=== PATIENT | female | born 1950 | race Caucasian/White ===

== ENCOUNTER 2018-07-09 12:47 | Emergency (ER) | payer OTHER ==
--- OUTSIDE RECORDS SUMMARY | 2018-07-09 12:49 | XMS REPORT ---
:1950 [facility] [address] [place] [address] Dr. Woodward [address] [place] [id number] Care Team Providers Name Role Phone Unavailable Unavailable Unavailable Problems This patient has no known problems. Allergies, Adverse Reactions, Alerts This patient has no known allergies or adverse reactions. Medications This patient has no known medications.
--- NOTE | 2018-07-09 15:01 | RAD REPORT ---
EXAM DESCRIPTION: RAD - Ankle Right 3 View - 07/09/2018 2:49 pm CLINICAL HISTORY: fall, ankle pain COMPARISON: No comparisons FINDINGS: No fracture or dislocation of the right ankle is seen.
--- NOTE | 2018-07-09 15:01 | RAD REPORT ---
EXAM DESCRIPTION: RAD - Knee Right 3 View - 07/09/2018 2:53 pm CLINICAL HISTORY: fall, knee pain COMPARISON: No comparisons FINDINGS: No fracture or dislocation of the right knee is present. No joint effusion.
--- NOTE | 2018-07-09 15:02 | RAD REPORT ---
EXAM DESCRIPTION: RAD - Knee Left 3 View - 07/09/2018 2:52 pm CLINICAL HISTORY: fall, knee pain COMPARISON: No comparisons FINDINGS: No fracture or dislocation of the left knee is present. No joint effusion seen.
--- NOTE | 2018-07-09 15:20 | EDPHYS ---
Physician Documentation [facility] Name: Christina Raphael Age: 68 yrs Sex: Female : 1950 Arrival Date: 07/09/2018 Time: 12:53 Bed 23 Private MD: Guillermo Ospina R ED Physician Dontae Yin HPI: 07/09 13:46 This 68 yrs old Female presents to ER via Wheelchair with complaints of Ankle jmm Injury, Knee Injury. 13:46 Details of fall: The patient fell from an upright position, while walking. jmm 13:46 Onset: The symptoms/episode began/occurred acutely, just prior to arrival. Associated jmm injuries: The patient sustained right ankle, knees bilaterally. This is a 68 year old female with a history of HLP that presents to the ED with pain to her right and left knee and her right ankle after fall which occurred just prior to arrival. Patient states she miss stepped off a decline and fell on the left knee then the right, rilling her right ankle. Patient denies other injury. . Historical: - Allergies: 13:11 Codeine; aj1 - Home Meds: 13:11 medicine for acid reflux [Active]; aj1 - PMHx: 13:11 High Cholesterol; TIA; GERD; aj1 - Immunization history:: Flu vaccine is not up to date. - Social history:: Smoking status: Patient/guardian denies using tobacco. - Ebola Screening: : Patient denies travel to an Ebola-affected area in the 21 days before illness onset. ROS: 13:46 Constitutional: Negative for fever, chills, and weight loss, Cardiovascular: Negative jmm for chest pain, palpitations, and edema, Respiratory: Negative for shortness of breath, cough, wheezing, and pleuritic chest pain. 13:46 MS/extremity: Positive for injury or acute deformity, abrasion, pain. 13:46 Skin: Positive for abrasion(s). 13:46 All other systems are negative. Exam: 13:46 Head/Face: atraumatic. Eyes: EOMI, no conjunctival erythema appreciated ENT: Moist jmm Mucus Membranes Neck: Trachea midline, Supple Chest/axilla: Normal chest wall appearance and motion. Cardiovascular: Regular rate and rhythm. No edema appreciated Respiratory: Normal respirations, no respiratory distress appreciated Abdomen/GI: Non distended, soft 13:46 Constitutional: The patient appears in no acute distress, alert, awake. 13:46 Musculoskeletal/extremity: FROM appreciated to the right knee, painful flexion noted to the left knee, left knee TTP at the patellar ligament. Swelling noted to the right ankle. no tenderness appreciated at the base of the 5th metatarsal. . 13:46 Skin: abrasion noted to the left knee. 13:46 Neuro: Orientation: is normal, Mentation: is normal, Memory: is normal. 13:46 Psych: Behavior/mood is pleasant, cooperative. Vital Signs: 13:11 BP 121 / 73; Pulse 80; Resp 18; Temp 98.2; Pulse Ox 97% on R/A; Weight 70.76 kg; Height aj1 6 ft. 1 in. (185.42 cm) (R); Pain 5/10; 15:33 BP 117 / 74; Pulse 76; Resp 18; Pulse Ox 98% on R/A; la1 13:11 Body Mass Index 20.58 (70.76 kg, 185.42 cm) aj1 MDM: 13:46 Patient medically screened. [facility] 15:17 Differential diagnosis: abrasion, contusion, fracture. Data reviewed: vital signs, [facility] nurses notes. Data interpreted: Pulse oximetry: on room air is 97 %. Interpretation: normal. Counseling: I had a detailed discussion with the patient and/or guardian regarding: the historical points, exam findings, and any diagnostic results supporting the discharge/admit diagnosis, radiology results, the need for outpatient follow up, to return to the emergency department if symptoms worsen or persist or if there are any questions or concerns that arise at home. 15:18 ED course: Negative xrays, PE is NVI. Patient is advised to follow up with orthopedics [facility] for further evaluation. Patient understood and agrees with the plan of care. . 07/09 13:46 Order name: Knee Left 3 View XRAY; Complete Time: 15:03 [facility] 07/09 13:46 Order name: Knee Right 3 View XRAY; Complete Time: 15:03 [facility] 07/09 13:46 Order name: Ankle Right 3 View XRAY; Complete Time: 15:03 [facility] 07/09 15:03 Order name: Chon wrap-joint; Complete Time: 15:33 [facility] Administered Medications: No medications were administered Disposition: 07/09/18 15:19 Discharged to Home. Impression: Sprain of ankle, Contusion of knee. - Condition is Stable. - Discharge Instructions: Ankle Sprain, Knee Pain. - Medication Reconciliation Form, Thank You Letter, Antibiotic Education, Prescription Opioid Use, Family Work Release form. - Follow up: Vasquez Chacon MD; When: 2 - 3 days; Reason: Recheck today's complaints, Continuance of care, Re-evaluation by your physician. Addendum: 07/11/2018 10:26 Co-signature as Attending Physician, Dontae Yin MD. g s Signatures: Dispatcher [employer] EDMS Darya Tejeda, RN RN aj1 Sanchez Adame PA PA Rashid Lino RN RN la1 Dontae Yin MD MD gs Corrections: (The following items were deleted from the chart) 07/09 15:34 15:19 07/09/2018 15:19 Discharged to Home. Impression: Sprain of ankle; Contusion of la1 knee. Condition is Stable. Forms are Family Work Release, Medication Reconciliation Form, Thank You Letter, Antibiotic Education, Prescription Opioid Use. Follow up: Dr. Vasquez Chacon; When: 2 - 3 days; Reason: Recheck today's complaints, Continuance of care, Re-evaluation by your physician. serge
--- NOTE | 2018-07-09 15:20 | ER ---
Nurse's Notes [facility] Name: Christina Raphael Age: 68 yrs Sex: Female : 1950 Arrival Date: 07/09/2018 Time: 12:53 Bed 23 Private MD: Guillermo Ospina R Diagnosis: Sprain of ankle;Contusion of knee Presentation: 07/09 13:09 Presenting complaint: Patient states: When she was getting out of her car today at aj1 around 1230 she fell on both knees and twisted her right ankle. Reports to pain in both knees and right ankle. Transition of care: patient was not received from another setting of care. Onset of symptoms was July 09, 2018 at 12:30. Risk Assessment: Do you want to hurt yourself or someone else? Patient reports no desire to harm self or others. Initial Sepsis Screen: Does the patient meet any 2 criteria? No. Patient's initial sepsis screen is negative. Does the patient have a suspected source of infection? No. Patient's initial sepsis screen is negative. Care prior to arrival: None. 13:09 Method Of Arrival: Wheelchair aj1 13:09 Acuity: MARIA 4 aj1 Triage Assessment: 13:11 General: Appears in no apparent distress. comfortable, Behavior is calm, cooperative, aj1 appropriate for age. Pain: Complains of pain in right ankle, right knee and left knee Pain currently is 5 out of 10 on a pain scale. Neuro: Level of Consciousness is awake, alert, obeys commands. Cardiovascular: Patient's skin is warm and dry. Respiratory: Airway is patent Respiratory effort is even, unlabored, Respiratory pattern is regular, symmetrical. Musculoskeletal: Range of motion: limited in left knee, right knee and right ankle. Historical: - Allergies: 13:11 Codeine; aj1 - Home Meds: 13:11 medicine for acid reflux [Active]; aj1 - PMHx: 13:11 High Cholesterol; TIA; GERD; aj1 - Immunization history:: Flu vaccine is not up to date. - Social history:: Smoking status: Patient/guardian denies using tobacco. - Ebola Screening: : Patient denies travel to an Ebola-affected area in the 21 days before illness onset. Screenin:25 Abuse screen: Denies threats or abuse. Nutritional screening: No deficits noted. la1 Tuberculosis screening: No symptoms or risk factors identified. Fall Risk None identified. Assessment: 13:24 General: Appears in no apparent distress. Behavior is calm, cooperative. Pain: la1 Complains of pain in right knee and right ankle and left knee. Neuro: Level of Consciousness is awake, alert, obeys commands, Oriented to person, place, time, situation. Cardiovascular: Capillary refill < 3 seconds Patient's skin is warm and dry. Respiratory: Airway is patent Respiratory effort is even, unlabored, Respiratory pattern is regular, symmetrical. GI: No signs and/or symptoms were reported involving the gastrointestinal system. : No signs and/or symptoms were reported regarding the genitourinary system. Musculoskeletal: Circulation, motion, and sensation intact. Range of motion: limited in right ankle. Vital Signs: 13:11 BP 121 / 73; Pulse 80; Resp 18; Temp 98.2; Pulse Ox 97% on R/A; Weight 70.76 kg; Height aj1 6 ft. 1 in. (185.42 cm) (R); Pain 5/10; 15:33 BP 117 / 74; Pulse 76; Resp 18; Pulse Ox 98% on R/A; la1 13:11 Body Mass Index 20.58 (70.76 kg, 185.42 cm) aj1 ED Course: 12:53 Patient arrived in ED. sb2 12:53 Guillermo Ospina MD is Private Physician. sb2 13:10 Triage completed. aj1 13:11 Arm band placed on Patient placed in an exam room. aj1 13:14 Sanchez Adame PA is PHCP. jmm 13:14 Dontae Yin MD is Attending Physician. jmm 13:24 Rashid Parnell, RAPHAEL is Primary Nurse. la1 13:25 Call light in reach. Side rails up X 1. la1 14:49 Knee Left 3 View XRAY In Process Unspecified. EDMS 14:49 Knee Right 3 View XRAY In Process Unspecified. EDMS 14:50 Ankle Right 3 View XRAY In Process Unspecified. EDMS 15:19 Vasquez Chacon MD is Referral Physician. jmm 15:33 No provider procedures requiring assistance completed. Patient did not have IV access la1 during this emergency room visit. Administered Medications: No medications were administered Outcome: 15:19 Discharge ordered by . jmm 15:34 Discharged to home ambulatory. la1 15:34 Condition: stable 15:34 Discharge instructions given to patient, Instructed on discharge instructions, follow up and referral plans. medication usage, Demonstrated understanding of instructions, follow-up care. 15:34 Patient left the ED. la1 Signatures: Dispatcher [employer] EDDarya Reyes, RN RN aj1 Sanchez Adame PA PA jmm Attema, Lee, RN RN la1 Gill Farfan sb2
[2018-07-09 15:39] VITALS: TEMP 98.2
[2018-07-09 15:40] VITALS: BP 117/74; O2SAT 98
== END 2018-07-09 15:34 | disposition home or self-care (01) ==
LOC: ER 12:47
DX: S93.401A Sprain of unspecified ligament of right ankle, initial encounter (principal); W01.0XXA Fall on same level from slipping, tripping and stumbling without subsequent striking against object, initial encounter; Y93.01 Activity, walking, marching and hiking; Y92.9 Unspecified place or not applicable; Z88.5 Allergy status to narcotic agent; K21.9 Gastro-esophageal reflux disease without esophagitis
CPT/HCPCS: 99283

== ENCOUNTER 2020-01-29 22:03 | Emergency (ER) | payer OTHER ==
--- OUTSIDE RECORDS SUMMARY | 2020-01-29 22:07 | XMS REPORT | Continuity of Care Document ---
:1950 Author Organization [facility] t Address [facility] Woodward [address] [place] [id number] Care Team Providers Name Role Phone Unavailable Unavailable Unavailable Problems This patient has no known problems. Allergies, Adverse Reactions, Alerts This patient has no known allergies or adverse reactions. Medications This patient has no known medications. Procedures This patient has no known procedures. Results This patient has no known results.
[2020-01-29 22:57] LABS: Absolute Lymphocytes (CBC) 1.2 K/uL (0.7-4.9); Basophils % 1.2 % (0-1.3); Hematocrit 41.2 % (36.0-45.0); Lymphocytes % 28.7 % (15.3-44.8); MPV 8.7 fL (7.6-11.3); RBC Red Blood Cell Count 4.98 M/uL (3.86-4.86)
[2020-01-29] MEDS ORDERED: ONDANSETRON 4 MG/2 ML VIAL ONE (23:02)
[2020-01-29 23:06] LABS: Albumin 3.9 g/dL (3.4-5.0); Bilirubin Direct 0.2 mg/dL (0-0.2); Bilirubin Total 0.7 mg/dL (0.2-1.0); Potassium 3.5 mmol/L (3.5-5.1); Protein, Total 8.2 g/dL (6.4-8.2)
[2020-01-29 23:58] LABS: Urine Blood NEGATIVE (NEG); Urine Glucose NEGATIVE (NEG); Urine Protein 1+ (NEG); Urine Specific Gravity 1.025 (1.005-1.030); Urine pH 5.5 (5.0-7.0)
--- NOTE | 2020-01-30 00:49 | EDPHYS ---
Physician Documentation [facility] Name: Christina Raphael Age: 69 yrs Sex: Female : 1950 Arrival Date: 01/29/2020 Time: 22:06 Bed 19 Private MD: ED Physician Davian Boyce HPI: 01/28 22:40 This 69 yrs old Female presents to ER via Unassigned with complaints of rn Abdominal Pain, Nausea, Headache, Body pain. 22:40 The patient presents to the emergency department with nausea, abdominal pain. Possible rn causes: unknown. The symptoms are aggravated by nothing. The symptoms are alleviated by nothing. Severity of symptoms: At their worst the symptoms were mild in the emergency department the symptoms are unchanged. The patient has not experienced similar symptoms in the past. . 22:41 Pt reports recently started with abd pain, mid to lower abdomen, intermittent, assoc rn with chills/muscle aches/nausea/headache/fatigue. Reports mild change in taste, things tasting bland. . Historical: - Allergies: 22:44 Codeine; lp1 - Home Meds: 22:44 None [Active]; lp1 - PMHx: 22:44 GERD; High Cholesterol; TIA; lp1 - PSHx: 22:44 None; lp1 - Immunization history:: Adult Immunizations up to date. - Family history:: not pertinent. - Social history:: Smoking status: Patient denies any tobacco usage or history of. - Hospitalizations: : No recent hospitalization is reported. ROS: 22:41 Constitutional: Negative for weight loss Eyes: Negative for injury, pain, redness, and video production intern, ENT: Negative for injury, pain, and discharge, Neck: Negative for injury, pain, and swelling, Cardiovascular: Negative for chest pain, palpitations, and edema, Respiratory: + cough, neg for sob Abdomen/GI: + abd pain and nausea, neg for blood in stool MS/Extremity: Negative for injury and deformity, Skin: Negative for injury, rash, and discoloration, Neuro: Negative for weakness, numbness, tingling, and seizure. Exam: 22:42 Constitutional: This is a well developed, well nourished patient who is awake, alert, rn and in no acute distress. Ambulatory to room without dififculty or distress Head/Face: Normocephalic, atraumatic. ENT: MMM Cardiovascular: Regular rate and rhythm. No pulse deficits. Respiratory: No increased work of breathing, no retractions or nasal flaring. Abdomen/GI: soft, mild lower abd tenderness, no rebound or guarding Skin: Warm, dry MS/ Extremity: Pulses equal, no cyanosis. Neurovascular intact. Full, normal range of motion. Equal circumference. Neuro: Awake and alert, GCS 15, oriented to person, place, time, and situation. Cranial nerves II-XII grossly intact. Motor strength 5/5 in all extremities. Sensory grossly intact. Cerebellar exam normal. Normal gait. Vital Signs: 22:15 BP 155 / 56; Pulse 98; Resp 18; Temp 97.6(O); Pulse Ox 100% on R/A; Weight 65.77 kg lp1 (R); Height 6 ft. 1 in. (185.42 cm); Pain 0/10; 23:00 BP 112 / 74; Pulse 90; Resp 18; Pulse Ox 99% on R/A; lp1 01/29 00:00 BP 110 / 88; Pulse 86; Resp 18; Pulse Ox 99% on R/A; lp1 00:45 BP 109 / 50; Pulse 86; Resp 18; Pulse Ox 100% on R/A; lp1 01/28 22:15 Body Mass Index 19.13 (65.77 kg, 185.42 cm) lp1 MDM: 01/28 22:08 Patient medically screened. rn 01/29 00:44 Differential diagnosis: Nonspecific abd pain, gastritis, cholecystitis, pancreatitis, rn viral gastroenteritis, gastroenteritis, COVID-19. Data reviewed: vital signs, nurses notes, lab test result(s), radiologic studies, CT scan, and as a result, I will discharge patient. Counseling: I had a detailed discussion with the patient and/or guardian regarding: the historical points, exam findings, and any diagnostic results supporting the discharge/admit diagnosis, lab results, radiology results, the need for outpatient follow up, to return to the emergency department if symptoms worsen or persist or if there are any questions or concerns that arise at home. Response to treatment: the patient's symptoms have markedly improved after treatment, and as a result, I will discharge patient. Special discussion: Based on the patient's Hx, exam, and Dx evaluation, there is no indication for emergent surgery or inpatient Tx. It is understood by the patient/guardian that if the Sx's persist or worsen they need to return immediately for re-evaluation. I discussed with the patient/guardian in detail that at this point there is no indication for admission to the hospital. It is understood, however, that if the symptoms persist or worsen the patient needs to return immediately for re-evaluation. Based on the history and exam findings, there is no indication for further emergent testing or inpatient evaluation. I discussed with the patient/guardian the need to see the general surgeon for further evaluation of the symptoms. ED course: Pt without acute surgical abdomen on CT. Does show some gallbladder distension with small stones, but no thickening of wall/pericholecystic fluid/biliary dilatation. Normal WBC and LFTs/lipase. Given that patient with systemic symptoms of headache/cough/myalgias/abd pain/nausea/fatigue, most likely systemic illness like COVID and not acute gallbladder pathology. Had long discussion with patient and explained my reasoning, she agrees, states the headache and combination of symptoms causing more problems for her than the abdominal pain. Will dc home with strict return precautions, to await covid results, and recommend f/u with general surgery for gallbladder evaluation as well as adrenal mass surveillance. . 01/28 22:17 Order name: Basic Metabolic Panel; Complete Time: 23:09 rn 01/28 22:17 Order name: CBC with Diff; Complete Time: 23:09 rn 01/28 22:17 Order name: Hepatic Function; Complete Time: 23:09 rn 01/28 22:17 Order name: Lipase; Complete Time: 23:09 rn 01/28 22:17 Order name: COVID-19 rn 01/28 22:17 Order name: Flu; Complete Time: 00:32 rn 01/28 22:17 Order name: IV Saline Lock; Complete Time: 22:47 rn 01/28 22:17 Order name: Labs collected and sent; Complete Time: 22:47 rn 01/28 22:17 Order name: Urine Dipstick-Ancillary (obtain specimen); Complete Time: 00:14 rn 01/28 22:17 Order name: CT Abd/Pelvis - IV Contrast Only rn 01/28 23:38 Order name: Urine Dipstick--Ancillary (enter results); Complete Time: 00:32 mw2 Administered Medications: 01/28 22:55 Drug: Zofran (Ondansetron) 4 mg Route: IVP; Site: right antecubital; mt2 01/29 00:44 Follow up: Response: Nausea is decreased lp1 Disposition: 01/30/20 00:47 Discharged to Home. Impression: Cholelithiasis, Viral syndrome. - Condition is Stable. - Discharge Instructions: Cholelithiasis, COVID-19. - Prescriptions for Zofran ODT 4 mg Oral tablet,disintegrating - place 1 tablet by TRANSLINGUAL route every 8 hours As needed; 20 tablet. - Medication Reconciliation Form, Thank You Letter, Antibiotic Education, Prescription Opioid Use form. - Follow up: Harpreet Bowers MD; When: As needed; Reason: Recheck today's complaints, Re-evaluation by your physician. - Problem is new. - Symptoms have improved. Signatures: Dispatcher [employer] EDMS Davian Boyce MD MD rn Pena, Laura RN RN lp1 Shania Earl RN RN mt2 Corrections: (The following items were deleted from the chart) 01/28 22:42 22:40 Onset: The symptoms/episode began/occurred 1 week(s) ago, mauricio martínez 01/29 01:06 00:47 01/30/2020 00:47 Discharged to Home. Impression: Cholelithiasis; Viral syndrome. lp1 Condition is Stable. Forms are Medication Reconciliation Form, Thank You Letter, Antibiotic Education, Prescription Opioid Use. Follow up: Harpreet Bowers; When: As needed; Reason: Recheck today's complaints, Re-evaluation by your physician. Problem is new. Symptoms have improved. rn
--- NOTE | 2020-01-30 00:49 | ER ---
Nurse's Notes [facility] Name: Christina Raphael Age: 69 yrs Sex: Female : 1950 Arrival Date: 01/29/2020 Time: 22:06 Bed 19 Private MD: Diagnosis: Cholelithiasis;Viral syndrome Presentation: 01/28 22:15 Chief complaint: Patient states: 4 days ago began having symptoms of nausea, headache, lp1 general body aches, chills, cough; denies contact with COVID positive people. Coronavirus screen: Client denies travel out of the [place] in the last 14 days. chills, cough unrelated to allergies, fatigue, headache, muscle pain, nausea. Ebola Screen: No symptoms or risks identified at this time. Initial Sepsis Screen: Does the patient meet any 2 criteria? No. Patient's initial sepsis screen is negative. Does the patient have a suspected source of infection? No. Patient's initial sepsis screen is negative. Risk Assessment: Do you want to hurt yourself or someone else? Patient reports no desire to harm self or others. Onset of symptoms was January 26, 2020. 22:15 Method Of Arrival: Ambulatory lp1 22:15 Acuity: MARIA 3 lp1 Historical: - Allergies: 22:44 Codeine; lp1 - Home Meds: 22:44 None [Active]; lp1 - PMHx: 22:44 GERD; High Cholesterol; TIA; lp1 - PSHx: 22:44 None; lp1 - Immunization history:: Adult Immunizations up to date. - Family history:: not pertinent. - Social history:: Smoking status: Patient denies any tobacco usage or history of. - Hospitalizations: : No recent hospitalization is reported. Screenin:47 Abuse screen: Denies threats or abuse. Denies injuries from another. Nutritional lp1 screening: No deficits noted. Tuberculosis screening: No symptoms or risk factors identified. Fall Risk None identified. Assessment: 22:30 General: Appears in no apparent distress. Behavior is calm, cooperative, appropriate lp1 for age. Pain: Complains of pain in general body. Neuro: Level of Consciousness is awake, alert, obeys commands, Oriented to person, place, time, situation. Cardiovascular: Patient's skin is warm and dry. Respiratory: Respiratory effort is even, unlabored. GI: Abdomen is flat, Bowel sounds present X 4 quads. Abd is soft and non tender X 4 quads. Reports nausea. GI: Patient currently denies diarrhea, vomiting. : No signs and/or symptoms were reported regarding the genitourinary system. EENT: No signs and/or symptoms were reported regarding the EENT system. Derm: Skin is pink, warm \T\ dry. Musculoskeletal: No deficits noted. 23:25 Reassessment: Patient appears in no apparent distress at this time. Patient is alert, lp1 oriented x 3, equal unlabored respirations, skin warm/dry/pink. Patient aware of waiting to be taken to CT. 01/29 00:43 Reassessment: Dr. Boyce at bedside to discuss results with patient, demonstrates lp1 understanding. Vital Signs: 01/28 22:15 BP 155 / 56; Pulse 98; Resp 18; Temp 97.6(O); Pulse Ox 100% on R/A; Weight 65.77 kg lp1 (R); Height 6 ft. 1 in. (185.42 cm); Pain 0/10; 23:00 BP 112 / 74; Pulse 90; Resp 18; Pulse Ox 99% on R/A; lp1 01/29 00:00 BP 110 / 88; Pulse 86; Resp 18; Pulse Ox 99% on R/A; lp1 00:45 BP 109 / 50; Pulse 86; Resp 18; Pulse Ox 100% on R/A; lp1 01/28 22:15 Body Mass Index 19.13 (65.77 kg, 185.42 cm) lp1 ED Course: 01/28 22:06 Patient arrived in ED. cf2 22:08 Davian Boyce MD is Attending Physician. rn 22:15 Droplet isolation initiated. lp1 22:15 Arm band placed on. lp1 22:19 Radiology exam delayed due to IV insertion attempt and/or patient not having vm2 appropriate IV at this time. 22:30 Inserted saline lock: 20 gauge in right antecubital area, using aseptic technique. lp1 Blood collected. 22:30 Flu and/or RSV swab sent to lab. lp1 22:30 Patient has correct armband on for positive identification. lp1 22:43 Paris Rasheed RN is Primary Nurse. lp1 22:47 Triage completed. lp1 01/29 00:11 CT Abd/Pelvis - IV Contrast Only In Process Unspecified. EDMS 00:14 No provider procedures requiring assistance completed. lp1 00:47 Harpreet Bowers MD is Referral Physician. rn 00:59 IV discontinued, No redness/swelling at site. Pressure dressing applied. lp1 Administered Medications: 01/28 22:55 Drug: Zofran (Ondansetron) 4 mg Route: IVP; Site: right antecubital; mt2 01/29 00:44 Follow up: Response: Nausea is decreased lp1 Outcome: 00:47 Discharge ordered by MD. rn 00:59 Discharged to home ambulatory, with family. lp1 00:59 Condition: good 00:59 Discharge instructions given to patient, Instructed on discharge instructions, follow up and referral plans. medication usage, Demonstrated understanding of instructions, follow-up care, medications, Prescriptions given X 1. 01:06 Patient left the ED. lp1 Addendum: 01/31/2020 13:12 Addendum: COVID-19 Result: Positive result giiven to ED physician to notify pt. h b Physician: Joe Thomas MD. Signatures: Dispatcher [employer] EDMS Davian Boyce MD MD rn Pena, Laura, RN RN lp1 Claudette Bermudez RN Mary Carmen Lopez 2 Ronny Tate 2 Shania Earl RN RN mt2
[2020-01-30 01:13] VITALS: TEMP 97.6
[2020-01-30 01:16] VITALS: BP 109/50; O2SAT 100
--- NOTE | 2020-01-30 09:23 | RAD REPORT ---
EXAM DESCRIPTION: CT - Abdomen Pelvis W Contrast - 01/30/2020 12:11 am CLINICAL HISTORY: 69 years Female lower abd pain TECHNIQUE: Contiguous axial images obtained through the abdomen and pelvis following intravenous con trast administration. Coronal and sagittal reformatted images provided. This CT exam was performed according to our departmental dose-optimization program, which includes on e or more of the following dose reduction techniques: automated exposure control, adjustment of the m A and/or kV according to patient size, and/or use of iterative reconstruction technique. COMPARISON: No prior exams provided for comparison. FINDINGS: Platelike bibasilar atelectasis. 4 mm right lower lobe pulmonary nodule does not require f ollow-up. Bilateral adrenal masses, measuring up to 7.3 cm on the left and 5.8 cm on the right. The gallbladder is distended and contains gallstones. No definite gallbladder wall thickening or bili vimal dilatation. Mild hepatomegaly without focal lesion. The pancreas, spleen, adrenal glands, uterus, and urinary bladder are normal. Small bilateral renal cysts without hydronephrosis or pyelonephritis. Prominent pelvic veins. There is sigmoid diverticulosis without diverticulitis, bowel inflammation, obstruction, free intrape ritoneal air, or ascites. The appendix is normal. Atherosclerosis without abdominal aortic aneurysm or retroperitoneal hemorrhage. Mild chronic degenerative changes in the spine. No acute fracture or aggressive osseous lesion. IMPRESSION: Gallstones and gallbladder distention. If there is right upper quadrant pain, ultrasound recommended. Bilateral adrenal masses measuring up to 7.3 cm and cannot be characterized as benign. Consider follo w-up MRI or CT contrast washout study. Mild hepatomegaly. Possible pelvic venous congestion incidentally noted. Sigmoid diverticulosis without diverticulitis. Electronically signed by: Zandra Brunson MD 01/30/2020 12:26 AM CDT Due to temporary technical issues with the PACS/Fluency reporting system, reports are being signed by the in house radiologist without review as a courtesy to ensure prompt reporting. The interpreting r adiologist is fully responsible for the content of the report.
== END 2020-01-30 01:06 | disposition home or self-care (01) ==
LOC: ER 22:03
DX: K80.20 Calculus of gallbladder without cholecystitis without obstruction (principal); U07.1 COVID-19; B34.9 Viral infection, unspecified; Z88.5 Allergy status to narcotic agent
CPT/HCPCS: 85025; 80048; 36415; 80076; 81003; 83690; 87804 ×2; 74177; 96374; 99284; U0002; Q9967; J2405

== ENCOUNTER 2020-02-11 11:02 | Observation (INO) | payer OTHER ==
--- OUTSIDE RECORDS SUMMARY | 2020-02-11 11:29 | XMS REPORT | Continuity of Care Document ---
:1950 Author Organization [facility] t Address [address] [place]. [address] [place] [id number] Care Team Providers Name Role Phone Unavailable Unavailable Unavailable Problems This patient has no known problems. Allergies, Adverse Reactions, Alerts This patient has no known allergies or adverse reactions. Medications This patient has no known medications. Procedures This patient has no known procedures. Results This patient has no known results.
[2020-02-11 13:44] LABS: Absolute Lymphocytes (CBC) 0.9 K/uL (0.7-4.9); Basophils % 1.2 % (0-1.3); Hematocrit 42.5 % (36.0-45.0); Lymphocytes % 15.4 % (15.3-44.8); RBC Red Blood Cell Count 5.28 M/uL (3.86-4.86)
[2020-02-11] MEDS ORDERED: ONDANSETRON 4 MG/2 ML VIAL ONE (13:48)
[2020-02-11] MEDS ORDERED: NA CHLORIDE 0.9% 1,000 ML ONE (13:48)
--- NOTE | 2020-02-11 14:12 | RAD REPORT ---
EXAM DESCRIPTION: CTAbdomen Pelvis W Contrast - 02/11/2020 2:04 pm CLINICAL HISTORY: Abdominal pain. ABD PAIN COMPARISON: Abdomen Pelvis W Contrast dated 01/29/2020; Abdomen Pelvis W Contrast dated 07/04/2017 TECHNIQUE: Biphasic CT imaging of the abdomen and pelvis was performed with 100 ml non-ionic IV cont rast. All CT scans are performed using dose optimization technique as appropriate and may include automated exposure control or mA/KV adjustment according to patient size. FINDINGS: The lung bases are clear. The gallbladder appears distended with several gallstones present. The liver, spleen, pancreas, and kidneys are within normal limits. Tiny cortical renal cysts are pres ent bilaterally. Large bilateral adrenal masses are present, on the left measuring 4.8 cm and on the right measuring 3 .4 cm. These are new since 07/24/2017 but stable since 01/29/2020 study No bowel obstruction, free air, free fluid or abscess. Prominent sigmoid diverticulosis coli without diverticulitis. The appendix is normal. No suspicious bony findings. IMPRESSION: Cholelithiasis with gallbladder distension noted. Gallbladder ultrasound would be sugges guilherme for followup. Large bilateral adrenal masses are present which have developed since 2018. Followup MRI adrenal prot ocol could be performed for further characterization.
--- NOTE | 2020-02-11 14:46 | RAD REPORT ---
EXAM DESCRIPTION: US - Abdomen Exam Limited - 02/11/2020 2:38 pm CLINICAL HISTORY: ABD PAIN COMPARISON: No comparisons FINDINGS: The gallbladder demonstrates multiple small gallstones. Generalized gallbladder distension noted. No pericholecystic fluid or gallbladder wall thickening. The common bile duct is normal measu ring 4 mm. The liver demonstrates no findings of intrahepatic biliary dilatation. IMPRESSION: Cholelithiasis. Gallbladder is distended.
[2020-02-11 14:56] LABS: Albumin 3.1 g/dL (3.4-5.0); Bilirubin Direct 0.6 mg/dL (0-0.2); Bilirubin Total 1.6 mg/dL (0.2-1.0); Potassium 3.8 mmol/L (3.5-5.1); Protein, Total 7.2 g/dL (6.4-8.2)
[2020-02-11 15:25] LABS: Anisocytosis 1+; Blood Morphology Comment NOTED (NOT SEEN); Platelet Estimate ADEQ; Poikilocytosis 1+; Urine White Blood Cell Casts OK
--- NOTE | 2020-02-11 15:47 | EDPHYS ---
Physician Documentation [facility] Name: Christina Raphael Age: 69 yrs Sex: Female : 1950 Arrival Date: 02/11/2020 Time: 11:04 Bed 8 Private MD: ED Physician Davian Boyce HPI: 02/10 13:55 This 69 yrs old Female presents to ER via Wheelchair with complaints of rn abdominal pain. 15:07 The patient presents with abdominal pain in the upper abdomen. Onset: The rn symptoms/episode began/occurred 3 week(s) ago. The symptoms do not radiate. Associated signs and symptoms: Pertinent positives: nausea and vomiting, anorexia, Pertinent negatives: blood in stools, fever. The symptoms are described as achy, crampy, dull, intermittent. Modifying factors: The symptoms are alleviated by nothing, the symptoms are aggravated by food. Severity of pain: At its worst the pain was mild in the emergency department the pain is unchanged. The patient has experienced similar episodes in the past. The patient has been recently seen by a physician:. Sent by Dr. Bowers for CT abdomen, + 3 weeks of upper abd pain, nausea, and anorexia, no fever. . Historical: - Allergies: 11:18 Codeine; ca1 - PMHx: 11:18 GERD; TIA; High Cholesterol; ca1 - PSHx: 11:18 None; ca1 - Immunization history:: Adult Immunizations up to date. - Social history:: Smoking status: Patient denies any tobacco usage or history of. - Family history:: not pertinent. - Hospitalizations: : No recent hospitalization is reported. ROS: 15:07 Constitutional: Negative for fever, chills, and weight loss, Eyes: Negative for injury, rn pain, redness, and discharge, Cardiovascular: Negative for chest pain, palpitations, and edema, Respiratory: Negative for shortness of breath, cough, wheezing, and pleuritic chest pain, Abdomen/GI: + abd pain and anorexia MS/Extremity: Negative for injury and deformity, Skin: Negative for injury, rash, and discoloration, Neuro: Negative for headache, numbness, tingling, and seizure. Exam: 15:07 Constitutional: Thin female, no acute distress Head/Face: Normocephalic, atraumatic. crna: MMM Cardiovascular: Regular rate and rhythm. No pulse deficits. Respiratory: No increased work of breathing, no retractions or nasal flaring. Abdomen/GI: soft, mild epigastric tenderness, no rebound, neg garcia MS/ Extremity: Pulses equal, no cyanosis. Neurovascular intact. Full, normal range of motion. Equal circumference. Neuro: Awake and alert, GCS 15 Vital Signs: 11:15 BP 97 / 63; Pulse 106; Resp 18 S; Temp 97.9(O); Pulse Ox 100% on R/A; Weight 72.57 kg ca1 (R); Height 6 ft. 1 in. (185.42 cm) (R); 14:35 BP 112 / 59; Pulse 82; Resp 20 S; Pulse Ox 100% on R/A; aa5 15:00 BP 120 / 58; Pulse 80; Resp 20; Pulse Ox 96% ; sv 16:00 BP 111 / 61; Pulse 80; Resp 18; Pulse Ox 97% ; sv 17:00 BP 113 / 53; Pulse 73; Resp 18; Temp 98.0(O); Pulse Ox 97% ; aa5 11:15 Body Mass Index 21.11 (72.57 kg, 185.42 cm) ca1 MDM: 13:16 Patient medically screened. rn 15:07 Differential diagnosis: appendicitis, bowel obstruction, cholecystitis, Cholelithiasis, rn non-specific abd pain. Data reviewed: vital signs, nurses notes, lab test result(s), radiologic studies, CT scan, ultrasound, and as a result, I will admit patient. Counseling: I had a detailed discussion with the patient and/or guardian regarding: the historical points, exam findings, and any diagnostic results supporting the discharge/admit diagnosis, lab results, radiology results, the need for further work-up and treatment in the hospital. Admission orders: after a detailed discussion of the patient's condition and case, the admit orders are written by me. 15:45 ED course: Spoke with Tim Bowers, will admit to his service, NPO at midnight, and attorney lawyer tomorrow.. 02/10 13:20 Order name: Basic Metabolic Panel; Complete Time: 15:04 rn 02/10 13:20 Order name: CBC with Diff rn 02/10 13:20 Order name: Hepatic Function; Complete Time: 15:04 rn 02/10 13:20 Order name: Lipase; Complete Time: 15:04 rn 02/10 13:46 Order name: CBC Smear Scan EDMS 02/10 14:18 Order name: CREATININE WHOLE BLOOD; Complete Time: 14:49 EDMS 02/10 13:20 Order name: IV Saline Lock; Complete Time: 13:37 rn 02/10 13:20 Order name: Labs collected and sent; Complete Time: 13:37 rn 02/10 13:20 Order name: US Abdomen Limited; Complete Time: 14:49 rn 02/10 13:20 Order name: CT Abd/Pelvis - IV Contrast Only; Complete Time: 14:49 rn 02/10 15:40 Order name: Diet Clear Liquid; Complete Time: 15:41 aa5 02/10 13:49 Order name: Labs - recollect needed: recollect needed/ lab printing labels; Complete eb Time: 14:17 Administered Medications: 13:45 Drug: NS 0.9% 1000 ml Route: IV; Rate: 1000 ml; Site: right antecubital; aa5 14:45 Follow up: IV Status: Completed infusion; IV Intake: 1000ml aa5 13:45 Drug: Zofran (Ondansetron) 4 mg Route: IVP; Site: right antecubital; aa5 14:00 Follow up: Response: No adverse reaction aa5 16:06 Drug: Phenergan 12.5 mg Route: IVP; Site: right antecubital; aa5 16:11 Follow up: Response: No adverse reaction aa5 Disposition: 02/11/20 15:46 Hospitalization ordered by Harpreet Bowers for Inpatient Admission. Preliminary diagnosis are Anorexia, Upper abdominal pain, unspecified - Distended gallbladder. - Bed requested for Telemetry/MedSurg (Inpatient). - Status is Inpatient Admission. iw - Condition is Stable. - Problem is an ongoing problem. - Symptoms have improved. Signatures: Dispatcher [employer] [facility] Patito Collins RN RN dw Williams, Irene, RN RN iw Nieto, Roman, MD MD rn Calderon, Audri, RN RN aa5 Yady Leblanc Cheryl, RN RN ca1 Corrections: (The following items were deleted from the chart) 16:51 15:46 Hospitalization Ordered by Harpreet Bowers MD for Inpatient Admission. Preliminary dw diagnosis is Anorexia; Upper abdominal pain, unspecified - Distended gallbladder. Bed requested for Telemetry/MedSurg (Inpatient). Status is Inpatient Admission. Condition is Stable. Problem is an ongoing problem. Symptoms have improved. rn 18:01 16:51 02/11/2020 15:46 Hospitalization Ordered by Harpreet Bowers MD for Inpatient iw Admission. Preliminary diagnosis is Anorexia; Upper abdominal pain, unspecified - Distended gallbladder. Bed requested for Telemetry/MedSurg (Inpatient). Status is Inpatient Admission. Condition is Stable. Problem is an ongoing problem. Symptoms have improved. dw
--- NOTE | 2020-02-11 15:47 | ER ---
Nurse's Notes [facility] Name: Christina Raphael Age: 69 yrs Sex: Female : 1950 Arrival Date: 02/11/2020 Time: 11:04 Bed 8 Private MD: Diagnosis: Anorexia;Upper abdominal pain, unspecified-Distended gallbladder Presentation: 02/10 11:15 Chief complaint: Patient states: Nausea x 2-3 weeks. Can't eat, feels nausea every time ca1 I eat. Sent by Dr. Bowers to have a CT. Reports epigastric pain. Coronavirus screen: Client denies travel out of the [place] in the last 14 days. At this time, the client does not indicate any symptoms associated with coronavirus-19. Ebola Screen: Patient negative for fever greater than or equal to 101.5 degrees Fahrenheit, and additional compatible Ebola Virus Disease symptoms Patient denies exposure to infectious person. Patient denies travel to an Ebola-affected area in the 21 days before illness onset. No symptoms or risks identified at this time. Initial Sepsis Screen: Does the patient meet any 2 criteria? No. Patient's initial sepsis screen is negative. Does the patient have a suspected source of infection? No. Patient's initial sepsis screen is negative. Risk Assessment: Do you want to hurt yourself or someone else? Patient reports no desire to harm self or others. Onset of symptoms was February 11, 2020. 11:15 Method Of Arrival: Wheelchair ca1 11:15 Acuity: MARIA 3 ca1 Historical: - Allergies: 11:18 Codeine; ca1 - PMHx: 11:18 GERD; TIA; High Cholesterol; ca1 - PSHx: 11:18 None; ca1 - Immunization history:: Adult Immunizations up to date. - Social history:: Smoking status: Patient denies any tobacco usage or history of. - Family history:: not pertinent. - Hospitalizations: : No recent hospitalization is reported. Screenin:37 Abuse screen: Denies threats or abuse. Denies injuries from another. Nutritional iw screening: No deficits noted. Tuberculosis screening: No symptoms or risk factors identified. Fall Risk IV access (20 points). Assessment: 12:16 Reassessment: DaughterJenny, . ca1 13:45 General: Appears uncomfortable, Behavior is calm, cooperative. Pain: Denies pain. aa5 Neuro: Level of Consciousness is awake, alert, obeys commands, Oriented to person, place, time, situation. Cardiovascular: Heart tones S1 S2 present Rhythm is regular. Respiratory: Airway is patent Respiratory effort is even, unlabored, Respiratory pattern is regular, symmetrical. GI: Abdomen is round non-distended, Bowel sounds present X 4 quads. Abd is soft and non tender X 4 quads. Reports nausea, dry heaving, reports no appetite x 10 days ago. Patient currently denies diarrhea, vomiting. : No signs and/or symptoms were reported regarding the genitourinary system. EENT: No signs and/or symptoms were reported regarding the EENT system. Derm: Skin is pink, warm \T\ dry. Musculoskeletal: Range of motion: intact in all extremities. 14:00 Reassessment: Pt taken to CT via stretcher . aa5 14:30 Reassessment: Patient is alert, oriented x 3, equal unlabored respirations, skin aa5 warm/dry/pink. Patient states feeling better. Pt reports nausea has improved. Pt back from CT scan. 16:06 Reassessment: Patient is alert, oriented x 3, equal unlabored respirations, skin aa5 warm/dry/pink. Pt c/o increased nausea, Dr. Boyce notified. . 17:52 Reassessment: Patient is alert, oriented x 3, equal unlabored respirations, skin aa5 warm/dry/pink. Vital Signs: 11:15 BP 97 / 63; Pulse 106; Resp 18 S; Temp 97.9(O); Pulse Ox 100% on R/A; Weight 72.57 kg ca1 (R); Height 6 ft. 1 in. (185.42 cm) (R); 14:35 BP 112 / 59; Pulse 82; Resp 20 S; Pulse Ox 100% on R/A; aa5 15:00 BP 120 / 58; Pulse 80; Resp 20; Pulse Ox 96% ; sv 16:00 BP 111 / 61; Pulse 80; Resp 18; Pulse Ox 97% ; sv 17:00 BP 113 / 53; Pulse 73; Resp 18; Temp 98.0(O); Pulse Ox 97% ; aa5 11:15 Body Mass Index 21.11 (72.57 kg, 185.42 cm) ca1 ED Course: 11:04 Patient arrived in ED. as 11:17 Triage completed. ca1 11:18 Arm band placed on right wrist. ca1 13:15 Carleen Jane, RAPHAEL is Primary Nurse. aa5 13:16 Davian Boyce MD is Attending Physician. rn 13:36 Initial lab(s) drawn, by me, sent to lab. Inserted saline lock: 20 gauge in right iw antecubital area, using aseptic technique. Blood collected. 13:45 Patient has correct armband on for positive identification. Placed in gown. Bed in low aa5 position. Call light in reach. Side rails up X2. 13:45 Pulse ox on. NIBP on. aa5 14:04 CT Abd/Pelvis - IV Contrast Only In Process Unspecified. EDMS 14:15 Lab(s) recollected, by me, sent to lab. dh3 14:38 US Abdomen Limited In Process Unspecified. EDMS 15:45 Harpreet Bowers MD is Hospitalizing Provider. rn 17:52 No provider procedures requiring assistance completed. Patient admitted, IV remains in aa5 place. Administered Medications: 13:45 Drug: NS 0.9% 1000 ml Route: IV; Rate: 1000 ml; Site: right antecubital; aa5 14:45 Follow up: IV Status: Completed infusion; IV Intake: 1000ml aa5 13:45 Drug: Zofran (Ondansetron) 4 mg Route: IVP; Site: right antecubital; aa5 14:00 Follow up: Response: No adverse reaction aa5 16:06 Drug: Phenergan 12.5 mg Route: IVP; Site: right antecubital; aa5 16:11 Follow up: Response: No adverse reaction aa5 Intake: 14:45 IV: 1000ml; Total: 1000ml. aa5 Outcome: 15:46 Decision to Hospitalize by Provider. rn 17:52 Admitted to Med/surg accompanied by tech, via wheelchair, with chart, Report called to aa5 RAPHAEL [place] 17:52 Condition: stable 17:52 Instructed on the need for admit, Demonstrated understanding of instructions. 18:01 Patient left the ED. Signatures: Dispatcher [employer] EDMS Patricia Sadler RN RN sv Martinez, Amelia as Williams, Irene, RN RN Davian Boyce MD MD rn Calderon, Audri RN RN aa5 Monique Wallace 3 Katya Watson RN RN ca1 Corrections: (The following items were deleted from the chart) 17:53 17:00 BP 113 / 53; Pulse 73bpm; Resp 18bpm; Pulse Ox 97%; sv aa5
[2020-02-11] MEDS ORDERED: PROMETHAZINE INJ 25 MG/ML AMP ONE (16:12)
[2020-02-11] MEDS ORDERED: MEPERIDINE HCL 25 MG/ML SYR IV PRN (18:17)
[2020-02-11 19:47] LABS: Albumin 3.5 g/dL (3.4-5.0); Bilirubin Direct 0.5 mg/dL (0-0.2); Bilirubin Total 1.5 mg/dL (0.2-1.0); Protein, Total 8.1 g/dL (6.4-8.2)
[2020-02-11] MEDS: D5 0.45 NS 1,000 ML IV SCH (20:58)
[2020-02-11] MEDS: ONDANSETRON 4 MG/2 ML VIAL IV PRN (21:11)
[2020-02-12 00:23] VITALS: BMI 19.2
[2020-02-12 04:22] LABS: Absolute Lymphocytes (CBC) 0.9 K/uL (0.7-4.9); Basophils % 1.3 % (0-1.3); Hematocrit 35.5 % (36.0-45.0); Lymphocytes % 18.5 % (15.3-44.8); RBC Red Blood Cell Count 4.44 M/uL (3.86-4.86)
[2020-02-12 04:31] LABS: Potassium 3.6 mmol/L (3.5-5.1)
[2020-02-12] MEDS ORDERED: Ringers Lactate 1,000 ML IV ONE ×3 (06:54→09:25)
[2020-02-12] MEDS ORDERED: propofoL 200 MG/20 ML VIAL IV ONE (07:22)
[2020-02-12] MEDS ORDERED: FENTANYL CITR 100 MCG/2 ML ONE (07:22)
[2020-02-12] MEDS ORDERED: LIDOCAINE 1% MPF 5 ML VIAL ONE (07:23)
[2020-02-12] MEDS ORDERED: ROCURONIUM 50 MG/5 ML VIAL IV ONE (07:23)
--- NOTE | 2020-02-12 07:26 | P.HP ---
Date of Service: 02/12/20 PC: This 69-year-old female presents with severe abdominal pain for diagnosis and treatment. HPC: Patient was seen approximately 2 weeks ago with right upper quadrant abdominal pain in the ER. She was investigated at that time, was found have gallstones. Her pain has settled down and she was discharged is there is no signs of any acute inflammation. She returned yesterday, with again the same complaint. Pain is now in the upper abdomen going into her back. Has had nausea and vomiting associated with this. PMH: Negative PSHx: Denies any prior surgeries SOC: Allergic to codeine SYS REVIEW: No cough, wheeze, shortness of breath. No chest pain or palpitations. Denies any urinary complaints O/E awake alert very uncomfortable, vital signs are stable HEENT: Not clinically jaundiced Chest: Chest movement equal bilaterally ABD: Tender in the upper mid abdomen LOCO: Intact DATA: Ultrasound demonstrates gallstones IMPRESSION: Cholelithiasis with biliary colic PLAN: I will take her the operating room for a laparoscopic possible open cholecystectomy. The risks of this procedure have been discussed. The possibility of bleeding, infection, injury to bile ducts blood vessels intestines has been described. The possible need for an open and/or further surgeries and procedures were discussed. The fact that other entities are found at the time of surgery were also explained. The adrenal mass findings on CT scan were briefly explained and they will be investigated postoperatively. She understands and wants to proceed.
[2020-02-12] MEDS ORDERED: CEFOXITIN/SWI 1gm 1 GM/10 ML SYR ONE (07:28)
[2020-02-12] MEDS ORDERED: NS 0.9% VIAL 10 ML ONE (07:54)
[2020-02-12] MEDS ORDERED: Phenylephrine HCl 10 MG/ML 1 ML VIAL ONE (07:54)
[2020-02-12] MEDS ORDERED: KETOROLAC 30 MG/ML INJ ONE (08:05)
[2020-02-12] MEDS ORDERED: dexAMETHasone 10 MG/ML VIAL ONE (08:05)
[2020-02-12] MEDS ORDERED: NEOSTIGMINE 1 MG/ML -5 ML ONE (09:01)
[2020-02-12] MEDS ORDERED: GLYCOPYRROLATE 0.2 MG/ML SYR ONE (09:01)
[2020-02-12] MEDS ORDERED: ONDANSETRON 4 MG/2 ML VIAL ONE ×2 (09:01→09:31)
--- NOTE | 2020-02-12 09:28 | P.OP ---
Preoperative diagnosis: Cholelithiasis, biliary colic Postoperative diagnosis: The same Primary procedure: Laparoscopic cholecystectomy Secondary procedure: Cholangiogram Other procedure(s): KARLA block Anesthesia: General Estimated blood loss: Less than 20 cc Specimen: 1 gallbladder and contents Operative Technique: The patient was brought to the operating room placed supine on the table. After the induction of adequate general endotracheal anesthesia, the area of the abdomen is prepped with a DuraPrep solution, and draped in the usual aseptic manner. A subumbilical incision was made. This brought down through the skin and subcutaneous tissue. The Visiport was used to enter the peritoneal cavity and created pneumoperitoneum to approximately 12 mm of mercury. Under direct vision a 5 mm trocar was placed in the upper midline, and 2 other 5 mm trocars on the right lateral side. The patient was then placed in reverse Trendelenburg and rolled towards the block out machine operator's side. We could see a markedly distended gallbladder. There was an adhesive band extending from the omentum up over the gallbladder itself anchoring itself to the right lobe of the liver. This was marked acutely thickened in the middle. This band was dissected free and divided. A grasper was placed on the fundus of the gallbladder. It was necessary to aspirate the contents of the gallbladder in order to place another grasper on it without rupturing it. Another 1 was placed down by Johan's pouch. Applying lateral traction we were able to dissect and expose the cystic duct and artery. The artery was dealt with 1st. It was clipped and divided in the usual manner. A clip was then placed between the gallbladder and the cystic duct. An opening was made into the cystic duct. We attempted then to pass the cholangiocath into the cystic duct. The catheter passed cyst these again into the common bile duct. Our initial film showed demonstration of the common bile duct with good flow of contrast to the duodenum. On further pulling back the gallbladder we were finally able to demonstrate the we were in the cystic duct seen the small wasting area of the spiral valve. A cholangiogram was extended better and the dye shot straight down into the duodenum again. At this point the catheter was removed, clips were placed on the distal portion of the cystic duct. The cystic duct was then divided. The gallbladder was now dissected free from the liver bed, placed into an Endo-Catch, and brought out through the umbilical trocar site. The gallbladder fossa was inspected to ensure adequate hemostasis. It was irrigated with a saline solution and the irrigant aspirated from the peritoneal cavity. 0.25% Marcaine was aerosolized into the right upper quadrant and the gallbladder fossa. The umbilical trocar site was now approximated with an Endo Close and an absorbable sutures. A Karla block was performed under direct vision using 0.25% Marcaine. The pneumoperitoneum was then collapsed, the suture tied, and mandy applied to the skin. A further 0.25% Marcaine was injected around are incision sites. At the end of the procedure the patient was in a stable condition when sent to the recovery room. Needle sponge instrument count were correct. 1 specimen was sent for histopathology. Complications: None Transferred to: Recovery Room Condition: Good
[2020-02-12] MEDS ORDERED: HYDROMORPHONE HCL 1 MG/ML INJ ONE (09:32)
[2020-02-12] MEDS: D5 0.45 NS 1,000 ML IV SCH ×3 (10:05→17:15)
--- NOTE | 2020-02-12 10:25 | RAD REPORT ---
EXAM DESCRIPTION: RAD - Cholangiogram Oper-Xray Or - 02/12/2020 9:55 am CLINICAL HISTORY: LAP FLORESITA W/IOC OR 2 COMPARISON: Abdomen Exam Limited dated 02/11/2020 FINDINGS: Cystic duct injection was performed by operating surgeon. Common bile duct is normal in ca liber. No retained common bile duct stone is evident. Total fluoro time: 0.3 minutes IMPRESSION: No evidence of retained common duct stone.
[2020-02-12] MEDS: MEPERIDINE HCL 50 MG/ML IV PRN (23:40)
[2020-02-12] MEDS: ONDANSETRON 4 MG/2 ML VIAL IV PRN (23:41)
[2020-02-13] MEDS: D5 0.45 NS 1,000 ML IV SCH ×2 (01:25→09:34)
[2020-02-13] MEDS: ONDANSETRON 4 MG/2 ML VIAL IV PRN (06:33)
[2020-02-13] MEDS: MEPERIDINE HCL 50 MG/ML IV PRN (06:33)
[2020-02-13 11:27] VITALS: O2SAT 92
[2020-02-13 12:13] VITALS: BP 140/51; TEMP 97.8
== END 2020-02-13 13:06 | disposition home or self-care (01) ==
LOC: ER 11:02 → ERHOLD 15:47 → INTOOBSV 15:47 → 2ND 17:53
PROVIDERS: ADMIT Surgery; ATTEND Surgery
PROC: 0FT44ZZ Resection of Gallbladder, Percutaneous Endoscopic Approach (ICD-10-PCS; principal; 2020-02-11)
PROC: BF03YZZ Plain Radiography of Gallbladder and Bile Ducts using Other Contrast (ICD-10-PCS; 2020-02-11)
DX: K80.12 Calculus of gallbladder with acute and chronic cholecystitis without obstruction (principal); E27.8 Other specified disorders of adrenal gland; R63.0 Anorexia; Z68.1 Body mass index [BMI] 19.9 or less, adult; K21.9 Gastro-esophageal reflux disease without esophagitis; Z88.6 Allergy status to analgesic agent; Z86.73 Personal history of transient ischemic attack (TIA), and cerebral infarction without residual deficits
CPT/HCPCS: 96361; 85025 ×2; 80048 ×2; 36415; 82565; 80076 ×2; 88304; 83690; 74177; 74300; 76705; 96375; 96374; 99285; 47563; Q9967; J2704; J2550; J2370; J3010; J1100; J2175 ×2; J1170; J2710; J7799 ×5; J7120 ×3; J7030; J2405 ×6; G0378 ×4; 88305

== ENCOUNTER 2020-02-26 16:09 | Inpatient (IN) | payer OTHER ==
--- OUTSIDE RECORDS SUMMARY | 2020-02-26 16:10 | XMS REPORT | Continuity of Care Document ---
:1950 Author Organization [facility] t Address [facility] [place] [address] [place] [id number] Care Team Providers Name Role Phone Unavailable Unavailable Unavailable Problems This patient has no known problems. Allergies, Adverse Reactions, Alerts This patient has no known allergies or adverse reactions. Medications This patient has no known medications. Procedures This patient has no known procedures. Results This patient has no known results.
[2020-02-26] MEDS ORDERED: NA CHLORIDE 0.9% 1,000 ML ONE (16:37)
[2020-02-26] MEDS ORDERED: ONDANSETRON 4 MG/2 ML VIAL ONE ×2 (16:37→17:58)
[2020-02-26 17:11] LABS: Absolute Lymphocytes (CBC) 0.7 K/uL (0.7-4.9); Basophils % 0.2 % (0-1.3); Hematocrit 36.7 % (36.0-45.0); MPV 9.9 fL (7.6-11.3); RBC Red Blood Cell Count 4.56 M/uL (3.86-4.86)
[2020-02-26 17:29] LABS: Albumin 2.7 g/dL (3.4-5.0); Bilirubin Direct 0.9 mg/dL (0-0.2); Bilirubin Total 2.4 mg/dL (0.2-1.0); Potassium 3.4 mmol/L (3.5-5.1); Protein, Total 6.9 g/dL (6.4-8.2)
[2020-02-26 17:48] LABS: Platelet Estimate ADEQ
[2020-02-26 17:49] LABS: Blood Morphology Comment NOT SEEN (NOT SEEN)
--- NOTE | 2020-02-26 18:00 | RAD REPORT ---
EXAM DESCRIPTION: CTAbdomen Pelvis W Contrast - 02/26/2020 5:34 pm CLINICAL HISTORY: Abdominal pain. Diarhea;Nausea / vomiting COMPARISON: Abdomen Pelvis W Contrast dated 02/11/2020; Abdomen Pelvis W Contrast dated 01/29/2020; Abdomen Pelvis W Contrast dated 07/04/2017; Abdomen Exam Limited dated 02/11/2020; Cholangiogram Oper -Xray Or dated 02/12/2020 TECHNIQUE: Biphasic CT imaging of the abdomen and pelvis was performed with 100 ml non-ionic IV cont rast. All CT scans are performed using dose optimization technique as appropriate and may include automated exposure control or mA/KV adjustment according to patient size. FINDINGS: Small left pleural effusion is noted with atelectasis in the left lung base. Cholecystectomy. No aggressive liver mass or biliary dilatation. The spleen, pancreas are unremarkable. Large bilateral adrenal masses are again seen. The left adrenal mass measures 4.9 cm, similar in size compared to 02/11/2020. Right adrenal mass measures 3.9 cm in transverse dimension, appearing mildly more prominent than on the comparative study. There is evidence of adenopathy in the retroperitoneal region, for example posterior to the right nadia al vein measuring 14 mm and left para-aortic location measuring 19 mm. It is somewhat difficult to di scern the margins between the large adrenal masses in the soft tissue adenopathy. Both kidneys demons trate abnormal enhancement pattern which may be related to mass-effect on both renal veins affecting venous drainage from both kidneys. No bowel obstruction, free air, free fluid or abscess. Prominent sigmoid diverticulosis is present wi thout diverticulitis. The appendix is normal. Prominent lumbosacral degenerative changes. IMPRESSION: Large bilateral adrenal masses are again seen with mild retroperitoneal adenopathy. Etio logy is likely neoplastic/metastatic. Localized mass effect on both renal veins is likely present resulting in the mottled enhancement shama cristiano of both kidneys. Small left pleural effusion.
[2020-02-26 20:09] LABS: Urine Blood 1+ (NEG); Urine Glucose NEGATIVE (NEG); Urine Protein 2+ (NEG); Urine pH 5.5 (5.0-7.0)
--- NOTE | 2020-02-26 20:16 | EDPHYS ---
Physician Documentation [facility] Name: Christina Raphael Age: 69 yrs Sex: Female : 1950 Arrival Date: 02/26/2020 Time: 16:10 Bed 2 Private MD: ED Physician Davian Boyce HPI: 02/25 17:03 This 69 yrs old Female presents to ER via Wheelchair with complaints of pm1 N/V/D, generalized weakness, and dizziness. 17:03 The patient presents to the emergency department with nausea, vomiting, diarrhea. pm1 Onset: The symptoms/episode began/occurred 2 week(s) ago. Possible causes: unknown. The symptoms are aggravated by food , The symptoms are alleviated by nothing. Associated signs and symptoms: Pertinent positives: Decreased appetite, Pertinent negatives: abdominal pain, dysuria, fever. Severity of symptoms: in the emergency department the symptoms are worse. The patient has been recently been admitted at [facility], Admission for cholecystis on 02/10. Patient reports that she has not been able to drink or eat well since having her gallbladder removal. She has had vomiting and diarrhea on and off for the past 2 weeks with complaints of generalized weakness and dizziness. Historical: - Allergies: 16:24 Codeine; ca1 - Home Meds: 16:24 None [Active]; ca1 - PMHx: 16:24 GERD; High Cholesterol; TIA; ca1 - PSHx: 16:24 Cholecystectomy; ca1 - Immunization history:: Adult Immunizations up to date. - Social history:: Smoking status: Patient denies any tobacco usage or history of. ROS: 17:03 Cardiovascular: Negative for chest pain, palpitations, and edema, Respiratory: Negative pm1 for shortness of breath, cough, wheezing, and pleuritic chest pain. 17:03 Back: Negative for injury and pain, MS/Extremity: Negative for injury and deformity, Skin: Negative for injury, rash, and discoloration. 17:03 Constitutional: Positive for poor PO intake, weight loss, Negative for fever. 17:03 Abdomen/GI: Positive for nausea, vomiting, and diarrhea, Negative for abdominal pain. 17:03 Neuro: Positive for dizziness, generalized weakness, Negative for headache, numbness, tingling, focal weakness. Exam: 22:58 Head/Face: Normocephalic, atraumatic. pm1 22:58 Back: No spinal tenderness. No costovertebral tenderness. Full range of motion. Skin: Warm, dry with normal turgor. Normal color with no rashes, no lesions, and no evidence of cellulitis. MS/ Extremity: Pulses equal, no cyanosis. Neurovascular intact. Full, normal range of motion. 22:58 Constitutional: The patient appears in no acute distress, alert, awake, non-diaphoretic, non-toxic, well developed, emaciated, frail. 22:58 Cardiovascular: Rate: tachycardic, Rhythm: regular, Pulses: no pulse deficits are appreciated, Edema: is not appreciated. 22:58 Respiratory: Exam negative for acute changes, respiratory distress, shortness of breath. 22:58 Abdomen/GI: Exam negative for acute changes, Inspection: abdomen appears normal, Palpation: abdomen is soft and non-tender, in all quadrants. 22:58 Neuro: Exam negative for acute changes, Orientation: is normal, Mentation: is normal, Motor: is normal, moves all fours. Vital Signs: 16:22 BP 97 / 64; Pulse 122; Resp 17 S; Temp 98.5(TE); Pulse Ox 96% on R/A; Weight 58.97 kg ca1 (R); Height 6 ft. 1 in. (185.42 cm) (R); 17:20 BP 106 / 58; Pulse 103; Resp 19; Pulse Ox 95% on R/A; rb1 18:18 BP 110 / 84; Pulse 102; Resp 24; Pulse Ox 96% on R/A; rb1 19:21 BP 100 / 77; Pulse 103; Resp 20; Pulse Ox 100% ; ea 20:09 BP 96 / 75; Pulse 102; Resp 18; Pulse Ox 98% ; ea 21:25 BP 118 / 89; Pulse 110; Resp 20; Pulse Ox 94% on R/A; ea 16:22 Body Mass Index 17.15 (58.97 kg, 185.42 cm) ca1 MDM: 16:18 Patient medically screened. pm1 20:13 Data reviewed: vital signs. Data interpreted: Pulse oximetry: on room air is 98 %. pm1 Interpretation: normal. Counseling: I had a detailed discussion with the patient and/or guardian regarding: the historical points, exam findings, and any diagnostic results supporting the discharge/admit diagnosis, lab results, radiology results, the need for further work-up and treatment in the hospital. 02/25 16:20 Order name: Basic Metabolic Panel; Complete Time: 18:18 pm1 02/25 16:20 Order name: CBC with Diff; Complete Time: 18:18 pm1 02/25 16:20 Order name: Hepatic Function; Complete Time: 18:18 pm1 02/25 16:20 Order name: Lipase; Complete Time: 18:18 pm1 02/25 16:20 Order name: Flu; Complete Time: 18:18 pm1 02/25 17:13 Order name: Manual Differential; Complete Time: 18:18 [facility] 02/25 16:20 Order name: CT Abd/Pelvis - IV Contrast Only; Complete Time: 18:18 pm1 02/25 19:47 Order name: Urine Microscopic Only; Complete Time: 20:46 pm1 02/25 20:06 Order name: Urine Dipstick--Ancillary (enter results); Complete Time: 20:46 [facility] 02/25 20:30 Order name: Urine Culture [facility] 02/25 16:20 Order name: IV Saline Lock; Complete Time: 17:10 pm1 02/25 16:20 Order name: Labs collected and sent; Complete Time: 17:10 pm1 02/25 19:47 Order name: Urine Dipstick-Ancillary (obtain specimen); Complete Time: 20:06 pm1 02/25 19:47 Order name: Straight Cath - Urine; Complete Time: 20:06 pm1 Administered Medications: 17:02 Drug: NS 0.9% 1000 ml Route: IV; Rate: 1000 ml; Site: left antecubital; rb1 19:00 Follow up: Response: No adverse reaction; IV Status: Completed infusion; IV Intake: ea 1000ml 17:02 Drug: Zofran (Ondansetron) 4 mg Route: IVP; Site: left antecubital; rb1 19:00 Follow up: Response: No adverse reaction; Nausea is decreased ea 18:10 Drug: Zofran (Ondansetron) 4 mg Route: IVP; Site: left antecubital; rb1 19:00 Follow up: Response: No adverse reaction ea 20:17 Drug: NS 0.9% 1000 ml Route: IV; Rate: 100 ml/hr; Site: left antecubital; ea 21:23 Follow up: Response: No adverse reaction; IV Status: Infusion continued upon admission ea 21:04 Drug: Phenergan 6.25 mg Route: IVP; Site: right antecubital; ea 21:23 Follow up: Response: No adverse reaction; Nausea is decreased ea 21:08 Drug: Rocephin 1 grams Route: IV; Rate: calculated rate; Site: left antecubital; ea 21:23 Follow up: Response: No adverse reaction; IV Status: Completed infusion ea Disposition: 02/26/20 20:15 Hospitalization ordered by Isael Granados for Observation. Preliminary diagnosis are Dehydration, Nausea and vomiting, Diarrhea, unspecified, Bilateral adrenal masses, Urinary tract infection, site not specified. - Bed requested for Telemetry/MedSurg (observation). - Status is Observation. ea - Condition is Stable. - Problem is new. - Symptoms have improved. Addendum: 03/04/2020 07:05 Co-signature as Attending Physician, Davian Boyce MD. r n Signatures: Dispatcher [employer] [facility] Agnes Matson RN RN mw Nieto, Roman, MD MD rn Barber, Rebecca, RN RN rb1 Marinas, Patrick, NP [employer] pm1 Sarah Mata RN RN ea Acob, Cheryl, RN RN ca1 Corrections: (The following items were deleted from the chart) 02/25 20:38 20:15 Hospitalization Ordered by Isael Granados DO for Observation. Preliminary mw diagnosis is Dehydration; Nausea and vomiting; Diarrhea, unspecified; Bilateral adrenal masses. Bed requested for Telemetry/MedSurg (observation). Status is Observation. Condition is Stable. Problem is new. Symptoms have improved. pm1 20:53 20:38 02/26/2020 20:15 Hospitalization Ordered by Isael Granados DO for Observation. pm1 Preliminary diagnosis is Dehydration; Nausea and vomiting; Diarrhea, unspecified; Bilateral adrenal masses. Bed requested for Telemetry/MedSurg (observation). Status is Observation. Condition is Stable. Problem is new. Symptoms have improved. mw 22:11 20:53 02/26/2020 20:15 Hospitalization Ordered by Isael Granados DO for Observation. ea Preliminary diagnosis is Dehydration; Nausea and vomiting; Diarrhea, unspecified; Bilateral adrenal masses; Urinary tract infection, site not specified. Bed requested for Telemetry/MedSurg (observation). Status is Observation. Condition is Stable. Problem is new. Symptoms have improved. pm1
--- NOTE | 2020-02-26 20:16 | ER ---
Nurse's Notes [facility] Name: Christina Raphael Age: 69 yrs Sex: Female : 1950 Arrival Date: 02/26/2020 Time: 16:10 Bed 2 Private MD: Diagnosis: Dehydration;Nausea and vomiting;Diarrhea, unspecified;Bilateral adrenal masses;Urinary tract infection, site not specified Presentation: 02/25 16:22 Chief complaint: Patient states: Diarrhea x 2 days, 2 episodes today. Nausea. Denies ca1 vomiting. Reports cholecystectomy 1 month ago. Reports dizziness, general body weakness. Coronavirus screen: Client denies travel out of the [place] in the last 14 days. At this time, the client does not indicate any symptoms associated with coronavirus-19. Ebola Screen: Patient negative for fever greater than or equal to 101.5 degrees Fahrenheit, and additional compatible Ebola Virus Disease symptoms Patient denies exposure to infectious person. Patient denies travel to an Ebola-affected area in the 21 days before illness onset. No symptoms or risks identified at this time. Initial Sepsis Screen: Does the patient meet any 2 criteria? No. Patient's initial sepsis screen is negative. Does the patient have a suspected source of infection? No. Patient's initial sepsis screen is negative. Risk Assessment: Do you want to hurt yourself or someone else? Patient reports no desire to harm self or others. Onset of symptoms was February 26, 2020. 16:22 Method Of Arrival: Wheelchair ca1 16:22 Acuity: MARIA 3 ca1 Historical: - Allergies: 16:24 Codeine; ca1 - Home Meds: 16:24 None [Active]; ca1 - PMHx: 16:24 GERD; High Cholesterol; TIA; ca1 - PSHx: 16:24 Cholecystectomy; ca1 - Immunization history:: Adult Immunizations up to date. - Social history:: Smoking status: Patient denies any tobacco usage or history of. Screenin:15 Abuse screen: Denies threats or abuse. Nutritional screening: No deficits noted. rb1 Tuberculosis screening: No symptoms or risk factors identified. Fall Risk None identified. Assessment: 16:15 General: Appears uncomfortable, Behavior is calm, cooperative, Denies fever. Pain: rb1 Complains of pain in body aches Pain currently is 8 out of 10 on a pain scale. Pain began 2-3 days ago. Neuro: Level of Consciousness is awake, alert, obeys commands, Oriented to person, place, time, situation. Cardiovascular: Capillary refill < 3 seconds. Respiratory: Airway is patent Respiratory effort is even, unlabored, Respiratory pattern is regular, symmetrical. GI: Reports diarrhea, nausea, since x 2 days. : No signs and/or symptoms were reported regarding the genitourinary system. Derm: Skin is pink, warm \T\ dry. 16:15 Neuro: Reports weakness. rb1 17:20 Reassessment: Patient appears in no apparent distress at this time. No changes from [facility] previously documented assessment. 17:21 GI: Reports incontinence, New onset per daughter's report. rb1 17:21 Reassessment: Spoke with pt. daughter via telephone, updated her on the POC with the [facility] pt. permission. 18:18 Reassessment: Patient appears in no apparent distress at this time. Patient and/or rb1 family updated on plan of care and expected duration. Pain level reassessed. Patient is alert, oriented x 3, equal unlabored respirations, skin warm/dry/pink. 19:15 Reassessment: Provider at bedside updating pt on plan of care. ea 19:55 General: Appears uncomfortable, Behavior is appropriate for age. Pain: Denies pain. ea Neuro: Level of Consciousness is awake, alert, obeys commands, Oriented to person, place, time, situation. Cardiovascular: Patient's skin is warm and dry. Respiratory: Airway is patent Respiratory effort is even, unlabored, Respiratory pattern is regular, symmetrical. Derm: Skin is pink, warm \T\ dry. 20:06 Reassessment: Patient and/or family updated on plan of care and expected duration. Pain ea level reassessed. Patient is alert, oriented x 3, equal unlabored respirations, skin warm/dry/pink. 21:20 Reassessment: Patient and/or family updated on plan of care and expected duration. Pain ea level reassessed. Patient is alert, oriented x 3, equal unlabored respirations, skin warm/dry/pink. 21:31 Reassessment: Awaiting for call back from receiving nurse for report. ea Vital Signs: 16:22 BP 97 / 64; Pulse 122; Resp 17 S; Temp 98.5(TE); Pulse Ox 96% on R/A; Weight 58.97 kg ca1 (R); Height 6 ft. 1 in. (185.42 cm) (R); 17:20 BP 106 / 58; Pulse 103; Resp 19; Pulse Ox 95% on R/A; rb1 18:18 BP 110 / 84; Pulse 102; Resp 24; Pulse Ox 96% on R/A; rb1 19:21 BP 100 / 77; Pulse 103; Resp 20; Pulse Ox 100% ; ea 20:09 BP 96 / 75; Pulse 102; Resp 18; Pulse Ox 98% ; ea 21:25 BP 118 / 89; Pulse 110; Resp 20; Pulse Ox 94% on R/A; ea 16:22 Body Mass Index 17.15 (58.97 kg, 185.42 cm) ca1 ED Course: 16:10 Patient arrived in ED. aa5 16:13 Burt Martin, DANN is PHCP. pm1 16:13 Davian Boyce MD is Attending Physician. pm1 16:23 Akilah Patrick, RAPHAEL is Primary Nurse. rb1 16:23 Triage completed. ca1 16:24 Arm band placed on right wrist. ca1 16:24 Patient has correct armband on for positive identification. Placed in gown. Bed in low ca1 position. Call light in reach. Side rails up X2. white sugar boiler on. Pulse ox on. NIBP on. Warm blanket given. 16:24 Missed attempt(s): 20 gauge in right antecubital area. Bleeding controlled, band aid ca1 applied, catheter tip intact. 16:41 Missed attempt(s): 22 gauge in right antecubital area. Attempted by RAPHAEL Pennington. Bleeding rb1 controlled, band aid applied, catheter tip intact. 16:45 Missed attempt(s): 22 gauge in right forearm. Attempted by Gorge, RAPHAEL. Bleeding rb1 controlled, band aid applied, catheter tip intact. 17:00 Inserted saline lock: 22 gauge in left antecubital area, using aseptic technique. Blood rb1 collected. 17:10 Flu Sent. rb1 17:34 CT Abd/Pelvis - IV Contrast Only In Process Unspecified. EDMS 20:07 Speci-cath kit inserted, using sterile technique, specimen obtained. 15 returned re mt2 urine. Patient tolerated. 20:15 Isael Grandaos DO is Hospitalizing Provider. pm1 20:56 No provider procedures requiring assistance completed. Patient admitted, IV remains in ea place. Administered Medications: 17:02 Drug: NS 0.9% 1000 ml Route: IV; Rate: 1000 ml; Site: left antecubital; rb1 19:00 Follow up: Response: No adverse reaction; IV Status: Completed infusion; IV Intake: ea 1000ml 17:02 Drug: Zofran (Ondansetron) 4 mg Route: IVP; Site: left antecubital; rb1 19:00 Follow up: Response: No adverse reaction; Nausea is decreased ea 18:10 Drug: Zofran (Ondansetron) 4 mg Route: IVP; Site: left antecubital; rb1 19:00 Follow up: Response: No adverse reaction ea 20:17 Drug: NS 0.9% 1000 ml Route: IV; Rate: 100 ml/hr; Site: left antecubital; ea 21:23 Follow up: Response: No adverse reaction; IV Status: Infusion continued upon admission ea 21:04 Drug: Phenergan 6.25 mg Route: IVP; Site: right antecubital; ea 21:23 Follow up: Response: No adverse reaction; Nausea is decreased ea 21:08 Drug: Rocephin 1 grams Route: IV; Rate: calculated rate; Site: left antecubital; ea 21:23 Follow up: Response: No adverse reaction; IV Status: Completed infusion ea Intake: 19:00 IV: 1000ml; Total: 1000ml. ea Outcome: 20:15 Decision to Hospitalize by Provider. pm1 20:56 Instructed on the need for admit, Demonstrated understanding of instructions. ea 22:10 Admitted to Med/surg accompanied by nurse, with chart, Report called to Receiving ea nurse on second floor 22:10 Condition: stable 22:11 Patient left the ED. ea Signatures: Dispatcher [employer] EDMS Carleen Jane RN RN aa5 Akilah Patrick RN RN rb1 Burt Martin, COIL TESTER COIL TESTER pm1 Sarah Mata RN RN ea Acob, Cheryl, RN RN ca1 Toscano, Marlene, RN RN mt2 Corrections: (The following items were deleted from the chart) 17:45 17:21 GI: Reports incontinence, New onset per daughter's report. rb1 rb1
[2020-02-26 20:29] LABS: Urine Amorphous Sediment 3+ /HPF (NONE SEEN); Urine Bacteria 20-50 /HPF (<20); Urine Coarse Granular Casts 0-5 /LPF (NONE SEEN); Urine Culture Reflex Order REFLEXED; Urine Mucus 2+ /HPF (NONE SEEN)
[2020-02-26] MEDS ORDERED: PROMETHAZINE INJ 25 MG/ML AMP ONE (21:11)
[2020-02-26] MEDS ORDERED: CEFTRIAXONE/SWI 1gm 1 GM/10 ML SYR ONE (21:11)
--- NOTE | 2020-02-26 21:15 | P.HP ---
Certification for Inpatient Patient admitted to: Observation With expected LOS: <2 Midnights Patient will require the following post-hospital care: None Practitioner: I am a practitioner with admitting privileges, knowledge of patient current condition, hospital course, and medical plan of care. Services: Services provided to patient in accordance with Admission requirements found in Title 42 Section 412.3 of the Code of Federal Regulations <Rashid Parnell - Last Filed: 02/26/20 21:10> Patient admitted to: Inpatient With expected LOS: >2 Midnights <Isael Granados - Last Filed: 02/28/20 10:56> Patient History Date of Service: 02/26/20 Reason for admission: Dehydration, UTI History of Present Illness: 69-year-old female with history of hyperlipidemia, GERD presents emergency department for nausea, vomiting, diarrhea. Patient reports that she had a gallbladder taken out with Dr. Bowers approximately 2-3 weeks ago and since then has been having persistent nausea and vomiting. Patient reports that she has lost approximately 15 lb over the course of the last 2-3 weeks. Patient is not been able to tolerate any solid foods. During her evaluation in the emergency department patient was found to have acute kidney injury with creatinine of 1.5 over recent baseline of 0.9. Patient also had CT scan which showed large bilateral adrenal masses again seen. Left adrenal mass measures 4.9 cm which is similar in size but right adrenal mass measures 3.9 cm in transverse dimension appearing mildly more prominent than on the comparative study. There is also evidence of adenopathy in the retroperitoneal area. Also noted both kidneys demonstrate abnormal enhancement patterns. Patient also found to have urinary tract infection during her evaluation. ED provider wishes to admit patient for further evaluation and management. When I saw the patient in the emergency department she was awake, alert, oriented x3. Patient reports that she is unaware of any adrenal masses. Patient does appear dehydrated with dry mucous membranes. Patient be admitted for further evaluation and management - Past Medical/Surgical History Diabetic: No -: TIA -: GERD -: Hyperlipedemia -: NONE Psychosocial/ Personal History: Patient currently lives at home with her daughter - Family History Father -: Diabetes, Cancer Mother -: Cancer - Social History Alcohol use: No CD- Drugs: No Caffeine use: No Place of Residence: Home <ParmjitRashid - Last Filed: 02/26/20 21:10> Date of Service: 02/28/20 - Social History Smoking Status: Former smoker <Isael Granados - Last Filed: 02/28/20 10:56> Allergies codeine Allergy (Severe, Verified 02/26/20 22:33) Hives/Rash Home Medications: NK [No Home Meds] 02/26/20 Review of Systems 10-point ROS is otherwise unremarkable Gastrointestinal: Nausea, Vomiting, Diarrhea <Rashid Parnell - Last Filed: 02/26/20 21:10> Physical Examination - Physical Exam General: Alert, In no apparent distress, Oriented x3, Cachectic HEENT: Atraumatic, Other (Mucous membranes dry) Neck: Supple Respiratory: Clear to auscultation bilaterally, Normal air movement Cardiovascular: Normal pulses, Regular rate/rhythm, Normal S1 S2 Capillary refill: <2 Seconds Gastrointestinal: Normal bowel sounds Musculoskeletal: No contractures, No erythema, No tenderness Integumentary: No significant lesion, No tenderness/swelling, No erythema, No warmth Neurological: Normal speech, Normal strength at 5/5 x4 extr, Normal tone, Sensation intact - Studies Laboratory Data (last 24 hrs) 02/26/20 17:00: WBC 7.2, Hgb 12.4, Hct 36.7, Plt Count 250 02/26/20 17:00: Sodium 135 L, Potassium 3.4 L, BUN 25 H, Creatinine 1.51 H, Glucose 121 H, Total Bilirubin 2.4 H, AST 30, ALT 16, Alkaline Phosphatase 70, Lipase 309 Microbiology Data (last 24 hrs): 02/26/20 17:00 Nasopharnyx Influenza Type A Antigen Screen - Final 02/26/20 17:00 Nasopharnyx Influenza Type B Antigen Screen - Final <Rashid Parnell - Last Filed: 02/26/20 21:10> - Studies Microbiology Data (last 24 hrs): 02/27/20 07:59 Blood - Blood Anaerobic Blood Culture - Final 02/27/20 07:54 Blood - Blood Anaerobic Blood Culture - Final 02/26/20 22:45 Nasopharnyx Coronavirus COVID-19 PCR - Final <Isael Granados - Last Filed: 02/28/20 10:56> Assessment and Plan - Plan Assessment KING likely secondary to hypovolemia with N/V/D Urinary tract infection Bilateral adrenal masses Plan KING likely secondary to hypovolemia with N/V/D: Continue with IV hydration, as needed anti emetics. Nephrology consult in place due to KING with abnormal CT scan, renal ultrasound ordered. DVT prophylaxis Lovenox 40 mg subcutaneous once daily. Anticipate clinical improvement next 24-48 hr. Appreciate further input from nephrology. Urinary tract infection: Urine culture obtained in the emergency department, continue Rocephin at this time. Bilateral adrenal masses: Oncology consult in place. Appreciate further input from oncology. Patient will likely require further workup on an outpatient basis. Discharge Plan: Home Plan to discharge in: 24 Hours - Advance Directives Does patient have a Living Will: No Does patient have a Durable POA for Healthcare: No - Code Status/Comfort Care Code Status Assessed: Yes Code Status: Do Not Attempt Resuscitat Critical Care: No Time Spent Managing Pts Care (In Minutes): 55 <Rashid Parnell - Last Filed: 02/26/20 21:10> - Plan Case reviewed with nurse practitioner. Agree with plan of care. See progress note for details. <Isael Granados - Last Filed: 02/28/20 10:56>
[2020-02-26] MEDS ORDERED: NA CHLORIDE 0.9% 1,000 ML IV SCH (22:00)
[2020-02-26 22:36] VITALS: BMI 16.0
[2020-02-27] MEDS: ONDANSETRON 4 MG/2 ML VIAL IV PRN (05:19)
[2020-02-27 06:04] LABS: Absolute Lymphocytes (CBC) 0.8 K/uL (0.7-4.9); Basophils % 1.4 % (0-1.3); Lymphocytes % 12.2 % (15.3-44.8); MPV 9.8 fL (7.6-11.3); RBC Red Blood Cell Count 3.61 M/uL (3.86-4.86)
[2020-02-27 06:39] LABS: Magnesium 2.2 mg/dL (1.8-2.4); Potassium 3.1 mmol/L (3.5-5.1)
[2020-02-27] MEDS: PROMETHAZINE INJ 25 MG/ML AMP IV PRN ×2 (06:52→12:09)
[2020-02-27] MEDS ORDERED: D5 0.9 NS 1,000 ML IV SCH (07:00)
--- NOTE | 2020-02-27 08:22 | P.CNS ---
Date of Consult: 02/27/20 Reason for Consult: Adrenal Mass Requesting Physician: Isael Granados Chief Complaint: Dehydration, UTI History of Present Illness: 69-year-old female with history of hyperlipidemia, GERD presents emergency department for nausea, vomiting, diarrhea. Patient reports that she had a gallbladder taken out with Dr. Bowers approximately 2-3 weeks ago and since then has been having persistent nausea and vomiting. Patient reports that she has lost approximately 15 lb over the course of the last 2-3 weeks. Patient is not been able to tolerate any solid foods. During her evaluation in the emergency department patient was found to have acute kidney injury with creatinine of 1.5 over recent baseline of 0.9. Patient also had CT scan which showed large bilateral adrenal masses again seen. Left adrenal mass measures 4.9 cm which is similar in size but right adrenal mass measures 3.9 cm in transverse dimension appearing mildly more prominent than on the comparative study. There is also evidence of adenopathy in the retroperitoneal area. Also noted both kidneys demonstrate abnormal enhancement patterns. Patient also found to have urinary tract infection during her evaluation. ED provider wishes to admit patient for further evaluation and management. Allergies codeine Allergy (Severe, Verified 02/26/20 22:33) Hives/Rash Home medications list reviewed: Yes Home Medications: NK [No Home Meds] 02/26/20 - Past Medical/Surgical History Diabetic: No -: TIA -: GERD -: Hyperlipedemia -: NONE Psychosocial/ Personal History: Patient currently lives at home with her lorin davila - Family History Father Medical History: Diabetes, Cancer Mother Medical History: Cancer - Social History Smoking Status: Never smoker Alcohol use: No CD- Drugs: No Caffeine use: No Place of Residence: Home Review of Systems 10-point ROS is otherwise unremarkable General: Weakness, Malaise Neurological: Weakness Physical Examination Temp Pulse Resp BP Pulse Ox 98.6 F 103 H 20 101/50 L 96 02/27/20 04:00 02/27/20 04:00 02/27/20 04:00 02/27/20 04:00 02/27/20 04:00 Laboratory Data (last 24 hrs) 02/26/20 17:00: WBC 7.2, Hgb 12.4, Hct 36.7, Plt Count 250 02/26/20 17:00: Sodium 135 L, Potassium 3.4 L, BUN 25 H, Creatinine 1.51 H, Glucose 121 H, Total Bilirubin 2.4 H, AST 30, ALT 16, Alkaline Phosphatase 70, Lipase 309 Conclusions/Impression: A/ KING, improving Hyponatremia Hypokalemia Acidosis Hypocalcemia Moderate malnutrition Anemia in chronic illness BL Adrenal Masses P/ Continue current POC and Medications. Agree with the functional evaluation of the adrenal masses including the 24 hour urine. Continue IVF. Replete potassium. Start Vitamin D. Start oral bicarb. No NSAIDs. AM Labs. Daily weight. Thank you kindly for the consultation.
[2020-02-27 08:54] LABS: Ferritin 1956.8 ng/mL (8-388); T3 Free 1.11 pg/mL (2.18-3.98); Thyroid Stimulating Hormone 1.45 uIU/mL (0.360-3.740)
[2020-02-27] MEDS ORDERED: CEFTRIAXONE 1 GM/NS 50 ML 1 GM/50 ML BAG IV SCH (09:00)
[2020-02-27 09:28] LABS: Blood Morphology Comment NOT SEEN (NOT SEEN); Platelet Estimate ADEQ
[2020-02-27] MEDS: CEFTRIAXONE/SWI 1gm 1 GM/10 ML SYR IV SCH (09:28)
[2020-02-27] MEDS: KCL 20 MEQ/100 mL IVPB 20 MEQ/100 ML BAG IV SCH ×2 (09:28→12:00)
[2020-02-27] MEDS: ENOXAPARIN 40 MG/0.4 ML SQ SCH (09:29)
--- NOTE | 2020-02-27 09:35 | RAD REPORT ---
EXAM DESCRIPTION: US - Abdomen Pelvis Scan US - 02/27/2020 8:17 am CLINICAL HISTORY: Acute renal failure, evaluate renal veins, COMPARISON: Abdomen Pelvis W Contrast dated 02/26/2020 TECHNIQUE: Sonographic evaluation of the kidneys was performed with measurements obtained and gross anatomic assessment performed.Doppler evaluation of the renal arteries and veins performed. Waveforms and velocities were recorded. FINDINGS: Right kidney is 12.1 x 6.0 x 5.2 cm. Left kidney is 11.7 x 6.6 x 6.3 cm. Cortical thicknes s and echogenicity are normal. No hydronephrosis or suspicious mass. Doppler evaluation shows a bj l renal artery velocity value and waveform pattern. Bilateral renal veins are identified and show pat ency. Velocity and waveform patterns of the renal veins within normal limits. Bilateral adrenal masses are present. Sonographic characteristics do not further define a specific et iology. IMPRESSION: Bilateral renal veins and renal arteries show no suspicious findings. No hydronephrosis or suspicious renal mass.
--- NOTE | 2020-02-27 09:47 | RAD REPORT ---
EXAM DESCRIPTION: MRI - Cholangiogram - 02/27/2020 9:30 am CLINICAL HISTORY: Abdominal pain, elevated bilirubin, prior cholecystectomy COMPARISON: CT abdomen and pelvis February 25 TECHNIQUE: Axial and coronal heavily T2 weighted sequences were obtained. Coronal T2 HASTE fat satur ation static and coronal multiplane reconstruction imaging generated and reviewed. Horizontal and rajesh tical axis rotational views obtained using maximum intensity projection (MIP) protocol. FINDINGS: Exam has motion degradation limitations. Gallbladder is absent. No intrahepatic or extrahe patic biliary tree dilatation. No stricture, mass, stone or other intraluminal abnormality. Pancreati c duct is not well visualized. No dilatation is seen. Large bilateral adrenal masses are again noted. These are heterogeneous on T2 sequencing. Both kidneys show significant heterogeneity of the parenchyma on T2 sequencing. Pattern is nonspecifi c. Correlation is needed with any infectious or inflammatory history, symptoms or UA abnormalities. A s noted on the CT study there could be some extrinsic compression of the renal vasculature by the lar ge adrenal masses causing the mottled signal pattern. IMPRESSION: Normal post cholecystectomy MRCP. Large bilateral adrenal masses with bilateral significant renal parenchymal heterogeneous T2 signal p attern. As noted on the CT study, the renal signal pattern may be due to extrinsic compression of the renal vasculature. Correlation can be made with any infectious or inflammatory history, symptoms or UA abnormalities.
[2020-02-27] MEDS: D5 0.9 NS 1,000 ML IV SCH ×2 (12:52→20:29)
--- NOTE | 2020-02-27 18:28 | P.PN ---
Subjective Date of Service: 02/27/20 Chief Complaint: Dehydration, UTI Subjective: Other (Patient appears dehydrated.) Physical Examination - Vital Signs Temperature: 97.7 F Blood Pressure: 94/51 Pulse: 95 Respirations: 18 Pulse Ox (%): 97 - Physical Exam General: Alert, Cooperative HEENT: Other (Dry mucous membranes) Neck: Supple Respiratory: Clear to auscultation bilaterally, Normal air movement Cardiovascular: Normal pulses, Regular rate/rhythm Gastrointestinal: Normal bowel sounds, No masses, No rebound, No guarding Neurological: Normal speech, Normal strength at 5/5 x4 extr, Normal tone, Other (Muscle wasting to the upper lower extremities.) - Studies Microbiology Data (last 24 hrs): 02/26/20 17:00 Nasopharnyx Influenza Type A Antigen Screen - Final 02/26/20 17:00 Nasopharnyx Influenza Type B Antigen Screen - Final Medications List Reviewed: Yes Assessment & Plan Discharge Plan: Home Plan to discharge in: 48 Hours Physician Review Additional Text: Assessment Nausea, vomiting and diarrhea with muscle wasting and severe protein malnutrition secondary to acute renal failure stage III UTI Large bilateral adrenal masses, left adrenal mass 4.9 cm, right adrenal mass 3.9 cm with noted retroperitoneal adenopathy suspect neoplastic in nature with possible mass effect on renal veins Hyperbilirubinemia Hyponatremia and hypokalemia related to above Plan: Nausea, vomiting and diarrhea with muscle wasting and severe protein malnutrition secondary to acute renal failure stage III: Continue aggressive fluid hydration. Will provide medication IV for nausea. Monitor closely. Nutrition to evaluate daily needs. Will advance diet as tolerated. Continue treatment for UTI. Nephrology consulted to further evaluate. Patient with large adrenal masses. Patient will need to be further evaluated with 24 hr urine collection. Other lab to be obtained to rule out neoplastic disease. Will need to consider further imaging evaluation and possible biopsy. Provide DVT prophylaxis. Anticipate improvement over the next 48-72 hr. UTI: Continue we treatment. Urine and blood cultures obtained. Large bilateral adrenal masses, left adrenal mass 4.9 cm, right adrenal mass 3.9 cm with noted retroperitoneal adenopathy suspect neoplastic in nature with possible mass effect on renal veins: Will need to obtain renal ultrasound to evaluate and make sure there is no obstruction, will also order MRI. Will discuss further with Oncology as this may be neoplastic. Hyperbilirubinemia: Continue IV fluids. Will order MRI to further evaluate as the patient had recent cholecystectomy. Hyponatremia and hypokalemia related to above: Continue to replace electrolytes. Continue fluids. Time Spent Managing Pts Care (In Minutes): 55
[2020-02-27] MEDS: ENSURE HIGH PROTEIN 237 ML CAN PO SCH (20:29)
[2020-02-27] MEDS ORDERED: POTASSIUM 25 MEQ EFFERV TAB PO ONE (20:34)
[2020-02-28] MEDS: ACETAMINOPHEN 500 MG TAB PO PRN (01:02)
[2020-02-28] MEDS: LORazepam 2 MG/ML VIAL IV PRN (01:03)
[2020-02-28 04:36] LABS: Absolute Lymphocytes (CBC) 0.5 K/uL (0.7-4.9); Basophils % 1.3 % (0-1.3); Hematocrit 26.3 % (36.0-45.0); Lymphocytes % 17.3 % (15.3-44.8); MPV 9.4 fL (7.6-11.3); RBC Red Blood Cell Count 3.25 M/uL (3.86-4.86)
[2020-02-28 04:59] LABS: Bilirubin Total 0.9 mg/dL (0.2-1.0); Magnesium 2.3 mg/dL (1.8-2.4); Potassium 3.9 mmol/L (3.5-5.1); Protein, Total 5.2 g/dL (6.4-8.2)
[2020-02-28] MEDS: D5 0.9 NS 1,000 ML IV SCH (05:19)
[2020-02-28] MEDS ORDERED: POTASSIUM CL SA 10 MEQ TAB PO ONE (09:00)
[2020-02-28] MEDS: ENSURE HIGH PROTEIN 237 ML CAN PO SCH ×2 (09:00→21:20)
[2020-02-28] MEDS: ONDANSETRON 4 MG/2 ML VIAL IV PRN (09:25)
[2020-02-28] MEDS: DOCUSATE NA 100 MG CAP PO SCH ×2 (09:54→21:15)
[2020-02-28] MEDS: ENOXAPARIN 40 MG/0.4 ML SQ SCH (09:54)
[2020-02-28] MEDS: VITAMIN D 5,000 UNIT CAP PO SCH (09:54)
[2020-02-28] MEDS: SODIUM BICARB 325 MG TAB PO SCH ×3 (09:54→16:41)
[2020-02-28] MEDS: CALCITROL 0.25 MCG CAP PO SCH (09:54)
[2020-02-28] MEDS: CEFTRIAXONE/SWI 1gm 1 GM/10 ML SYR IV SCH (09:55)
[2020-02-28] MEDS: PROMETHAZINE INJ 25 MG/ML AMP IV PRN ×2 (10:43→17:19)
--- NOTE | 2020-02-28 10:55 | P.PN ---
Subjective Date of Service: 02/28/20 Chief Complaint: Dehydration, UTI Subjective: Other (Nausea and vomiting. Patient reports dyspnea history of tobacco abuse. Family history of stomach cancer.) Physical Examination - Vital Signs Temperature: 97.4 F Blood Pressure: 111/52 Pulse: 98 Respirations: 18 Pulse Ox (%): 91 - Physical Exam General: Alert, In no apparent distress, Cooperative HEENT: Atraumatic, Other (Dry mucous membranes) Respiratory: Clear to auscultation bilaterally, Normal air movement Cardiovascular: Normal pulses, Regular rate/rhythm Gastrointestinal: Normal bowel sounds, Soft and benign, Non-distended, No tenderness, No masses, No rebound, No guarding Integumentary: No erythema, No warmth, No cyanosis, Other (Muscle wasting to the upper lower extremities and torso.) - Studies Microbiology Data (last 24 hrs): 02/27/20 07:59 Blood - Blood Anaerobic Blood Culture - Final 02/27/20 07:54 Blood - Blood Anaerobic Blood Culture - Final 02/26/20 22:45 Nasopharnyx Coronavirus COVID-19 PCR - Final Medications List Reviewed: Yes Assessment & Plan Discharge Plan: Other (senior living facility) Plan to discharge in: 48 Hours Physician Review Additional Text: Assessment Nausea, vomiting and diarrhea with muscle wasting and severe protein malnutrition secondary to acute renal failure stage III UTI Large bilateral adrenal masses, left adrenal mass 4.9 cm, right adrenal mass 3.9 cm with noted retroperitoneal adenopathy suspect neoplastic in nature Hyperbilirubinemia Hyponatremia and hypokalemia related to above Suspect GERD or other etiology for nausea and vomiting Acute anemia with noted B12 deficiency etiology unknown Plan: Nausea, vomiting and diarrhea with muscle wasting and severe protein malnutrition secondary to acute renal failure stage III: Continue IV fluids. Will adjust accordingly. Will provide medication for nausea. Still with increased nausea and vomiting. Will start Protonix IV. Due to family history of stomach cancer, personal history of distant tobacco abuse, and symptoms, will consult GI to further evaluate. Continue clear liquids. Anticipate possible EGD today for further evaluation or likely tomorrow. Case discussed with oncology. Continue hormonal workup. Doubt pheochromocytoma. Metastatic disease likely. Will order CT chest to evaluate for lung cancer or adenopathy. Spoke with Radiology. Not able to do biopsy of adrenals or any pain he in the abdomen. Await CT chest to further assess for possible biopsy. 24 urine collection in process. Will ambulate with physical therapy. Social work to evaluate for possible skilled placement. Will discuss further with GI and Nephrology. UTI: Continue IV antibiotic treatment. Urine and blood cultures obtained. Urine shows no growth. Will consider discontinuing Rocephin. Large bilateral adrenal masses, left adrenal mass 4.9 cm, right adrenal mass 3.9 cm with noted retroperitoneal adenopathy suspect neoplastic in nature: Spoke with oncology. Still need to rule out metastatic disease. Will check CT chest. Spoke with Radiology, no available biopsy based on CT abdomen. GI to further evaluate stomach. Continue current workup. No mass affect on renal veins Hyperbilirubinemia: Continue IV fluids. Will order MRI to further evaluate as the patient had recent cholecystectomy. Hyponatremia and hypokalemia related to above: Continue to replace electrolytes. Continue fluids. Suspect GERD or other etiology for nausea and vomiting: Patient not able to tolerate full liquid. Will continue clears. Will consult GI for further evaluation. Suspect need for EGD. Will place on IV Protonix. Acute anemia with noted B12 deficiency, etiology unknown: GI consulted for possible EGD. Continue Protonix. Monitor closely. Will replace electrolytes and B12. Time Spent Managing Pts Care (In Minutes): 55
--- NOTE | 2020-02-28 11:26 | RAD REPORT ---
EXAM DESCRIPTION: CT - Thorax Wo Con CLINICAL HISTORY: Chest pain Adrenal masses likely metastatic, eval for lung CA COMPARISON: No comparisons FINDINGS: The lungs are mildly emphysematous. Tiny 4 mm nodule is present in the superior posterior aspect of the right upper lung. Small left pleural effusion is seen with atelectasis in the left lung base. No pneumothorax. No axillary, mediastinal or hilar adenopathy. No concerning bony finding. No lytic or blastic bone lesion. All CT scans are performed using dose optimization technique as appropriate and may include automated exposure control or mA/KV adjustment according to patient size. IMPRESSION: Small left pleural effusion. 4 mm nodule posterior right lobe.
[2020-02-28] MEDS: D5 0.45 NS 1,000 ML IV SCH ×2 (12:04→21:14)
--- NOTE | 2020-02-28 17:22 | RAD REPORT ---
EXAM DESCRIPTION: CT - Head Brain Wo Cont - 02/28/2020 4:48 pm CLINICAL HISTORY: confusion, transient alteration of awareness COMPARISON: Head Brain Wo Cont dated 02/07/2017 TECHNIQUE: Axial 5 mm thick images of the head were obtained without IV contrast. All CT scans are performed using dose optimization technique as appropriate and may include automated exposure control or mA/KV adjustment according to patient size. FINDINGS: No intracranial hemorrhage, mass, edema or shift of mid-line structures. No acute infarcti on changes seen. No abnormal extra-axial fluid collections. Mild atrophy changes are present with david tricles in proportion. Minimal chronic ischemic changes seen. Arterial and physiologic calcifications are present. Intracranial findings are similar to comparison. Mastoid air cells and visualized portions of the paranasal sinuses are clear. No acute bony findings. IMPRESSION: Negative non-contrast CT head examination for acute findings. No significant change from the 2017 study.
--- NOTE | 2020-02-28 22:04 | P.PN ---
Date of Service: 02/28/20 Vital Signs Temp Pulse Resp BP Pulse Ox 97.8 F 98 H 16 103/55 L 91 02/28/20 20:00 02/28/20 20:00 02/28/20 20:00 02/28/20 20:00 02/28/20 20:00 Medications Acetaminophen (Tylenol -Extra Strength) 500 mg PO Q4HP PRN PRN Reason: TEMP > 100' F Stop: 03/27/20 21:19 Last Admin: 02/28/20 01:02 Dose: 500 mg Documented by: Calcitriol (Rocaltrol) 0.5 mcg PO DAILY SUJEY Stop: 03/29/20 09:01 Last Admin: 02/28/20 09:54 Dose: 0.5 mcg Documented by: Cholecalciferol (Vitamin D 5,000 Iu Cap) 5,000 unit PO DAILY SUJEY Stop: 03/29/20 09:01 Last Admin: 02/28/20 09:54 Dose: 5,000 unit Documented by: Docusate Sodium (Colace Cap) 100 mg PO BID SUJEY Stop: 03/29/20 09:01 Last Admin: 02/28/20 21:15 Dose: 100 mg Documented by: Enoxaparin Sodium (Lovenox 40 Mg Inj) 40 mg SQ DAILY SUJEY Stop: 03/28/20 09:01 Last Admin: 02/28/20 09:54 Dose: 40 mg Documented by: Ceftriaxone Sodium/Sodium Chloride (Rocephin 1 Gm/10 Ml Swi Ivp) 1 gm in 10 mls @ 600 mls/hr IV DAILY SUJEY; Protocol Stop: 03/28/20 09:01 Last Admin: 02/28/20 09:55 Dose: 10 mls Documented by: Dextrose/Sodium Chloride (Dextrose 5% O.45% Saline) 1,000 mls @ 125 mls/hr IV .Q8H SUJEY Stop: 03/29/20 11:01 Last Admin: 02/28/20 21:14 Dose: 1,000 mls Documented by: Lorazepam (Ativan) 0.25 mg IV Q6H PRN PRN Reason: ANXIETY Stop: 03/27/20 21:19 Last Admin: 02/28/20 01:03 Dose: 0.25 mg Documented by: Nutritional Formula (Ensure High Protein) 237 ml PO BID SUJEY Stop: 03/28/20 21:01 Last Admin: 02/28/20 21:20 Dose: 237 ml Documented by: Ondansetron HCl (Zofran) 4 mg IV Q4HP PRN PRN Reason: NAUSEA / VOMITING Stop: 03/27/20 21:19 Last Admin: 02/28/20 09:25 Dose: 4 mg Documented by: Pantoprazole Sodium (Protonix Inj) 40 mg IVP DAILY SUJEY; Protocol Stop: 03/30/20 09:01 Promethazine HCl (Phenergan) 12.5 mg IV Q4H PRN PRN Reason: NAUSEA / VOMITING Stop: 03/27/20 21:19 Last Admin: 02/28/20 17:19 Dose: 12.5 mg Documented by: Sodium Bicarbonate (Sodium Bicarb 325 Mg) 650 mg PO TIDWM SUJEY Stop: 03/29/20 08:01 Last Admin: 02/28/20 16:41 Dose: Not Given Documented by: Sodium Chloride (Normal Saline Flush) 10 ml IV BID SUJEY Stop: 03/28/20 09:01 Last Admin: 02/28/20 21:21 Dose: 10 ml Documented by: Sodium Chloride (Sodium Chloride 10 Ml Inj) 10 ml IV UD PRN PRN Reason: Diluant Stop: 03/29/20 10:43 Microbiology Results 02/27/20 07:54 Blood - Blood Aerobic Blood Culture - Preliminary 02/27/20 07:54 Blood - Blood Blood Culture Gram Stain - Preliminary 02/27/20 07:54 Blood - Blood Anaerobic Blood Culture - Final 02/26/20 19:55 Clean Catch Urine [place] Count - Preliminary <10,000 CFU/ML. 02/26/20 19:55 Clean Catch Urine - Preliminary No growth. 02/27/20 07:59 Blood - Blood Aerobic Blood Culture - Preliminary No growth in 24 hours. 02/27/20 07:59 Blood - Blood Anaerobic Blood Culture - Final 02/26/20 22:45 Nasopharnyx Coronavirus COVID-19 PCR - Final 02/26/20 17:00 Nasopharnyx Influenza Type A Antigen Screen - Final 02/26/20 17:00 Nasopharnyx Influenza Type B Antigen Screen - Final Assessment/ Plan: Nephrology CPS stable without CP or SOB. +BM No acute events overnight. Vitals, medications, blood work and imaging reviewed in the chart. NAD. MMM. Neck supple. CTA. RRR. Soft Abd. No C/C/E. No rash. AAO. Normal Speech. Zapien with dark urine. Laboratory Data (last 24 hrs) 02/26/20 17:00: WBC 7.2, Hgb 12.4, Hct 36.7, Plt Count 250 02/26/20 17:00: Sodium 135 L, Potassium 3.4 L, BUN 25 H, Creatinine 1.51 H, Glucose 121 H, Total Bilirubin 2.4 H, AST 30, ALT 16, Alkaline Phosphatase 70, Lipase 309 Conclusions/Impression: A/ KING, improving Hyponatremia Hypokalemia Acidosis Hypocalcemia Moderate malnutrition Anemia in chronic illness BL Adrenal Masses P/ Continue current POC and Medications. Agree with the functional evaluation of the adrenal masses including the 24 hour urine; results pending. Continue IVF. Replete potassium. Continue Vitamin D. Continue oral bicarb. No NSAIDs. AM Labs. Daily weight.
[2020-02-29] MEDS: D5 0.45 NS 1,000 ML IV SCH ×4 (02:41→17:33)
[2020-02-29 04:57] LABS: Absolute Lymphocytes (CBC) 0.7 K/uL (0.7-4.9); Basophils % 1.3 % (0-1.3); Hematocrit 26.2 % (36.0-45.0); MPV 9.4 fL (7.6-11.3); RBC Red Blood Cell Count 3.19 M/uL (3.86-4.86)
[2020-02-29 05:07] LABS: Albumin 1.8 g/dL (3.4-5.0); Bilirubin Total 0.8 mg/dL (0.2-1.0); Magnesium 1.9 mg/dL (1.8-2.4)
[2020-02-29 05:18] LABS: Blood Morphology Comment NOT SEEN (NOT SEEN); Platelet Estimate ADEQ
[2020-02-29] MEDS: SODIUM BICARB 325 MG TAB PO SCH ×3 (07:27→16:00)
[2020-02-29] MEDS: ENSURE HIGH PROTEIN 237 ML CAN PO SCH ×2 (07:27→20:18)
[2020-02-29] MEDS: DOCUSATE NA 100 MG CAP PO SCH ×2 (07:27→20:17)
[2020-02-29] MEDS: ENOXAPARIN 40 MG/0.4 ML SQ SCH (07:27)
[2020-02-29] MEDS: CALCITROL 0.25 MCG CAP PO SCH (07:28)
[2020-02-29] MEDS: VITAMIN D 5,000 UNIT CAP PO SCH (07:28)
[2020-02-29] MEDS: PANTOPRAZOLE 40 MG INJ IVP SCH (08:12)
[2020-02-29] MEDS: CEFTRIAXONE/SWI 1gm 1 GM/10 ML SYR IV SCH (08:12)
[2020-02-29] MEDS: ONDANSETRON 4 MG/2 ML VIAL IV PRN ×2 (08:28→15:52)
[2020-02-29] MEDS: PROMETHAZINE INJ 25 MG/ML AMP IV PRN ×2 (11:02→20:17)
[2020-02-29] MEDS ORDERED: Ringers Lactate 1,000 ML IV ONE (13:52)
[2020-02-29] MEDS ORDERED: LIDOCAINE 1% MPF 5 ML VIAL ONE (14:41)
[2020-02-29] MEDS ORDERED: propofoL 200 MG/20 ML VIAL IV ONE (14:41)
--- NOTE | 2020-02-29 15:10 | ENDO RPT ---
[address], [address] EGD PROCEDURE REPORT EXAM DATE: 02/29/2020 PATIENT NAME: Christina Raphael MR#: [id number] BIRTHDATE: 1950 ATTENDING: Leonel [address] STATUS: inpatient - 7 BENEFITS CONSULTING ANALYST: Sarah Graham RN, Hillary Hansen RN, and Verena Hammonds CST INDICATIONS: The patient is a 69 yr old Female here for an EGD due to nausea and vomiting, mid epigastric abdominal pain, and chronic unexplained diarrhea PROCEDURE PERFORMED: EGD with biopsy MEDICATIONS: Per Anesthesia. TOPICAL ANESTHETIC: none CONSENT: The patient understands the risks and benefits of the procedure and understands that these risks include, but are not limited to: sedation, allergic reaction, infection, perforation and/or bleeding. Alternative means of evaluation and treatment include, among others: physical exam, x-rays, and/or surgical intervention. The patient elects to proceed with this endoscopic procedure. DESCRIPTION OF PROCEDURE: During intra-op preparation period all mechanical medical equipment was checked for proper function. Hand hygiene and appropriate measures for infection prevention was taken. Procedure, possible complications, and alternatives including but not limited to the possibility of bleeding, perforation, tear, infection, sepsis, need for surgery, need for blood transfusion, and anesthesia related complications were explained to the patient. After the risks, benefits and alternatives of the procedure were thoroughly explained, Informed consent was verified, confirmed and timeout was successfully executed by the treatment team. The patient was placed in the left lateral position. The patient was anesthetized with topical anesthesia. Through the anesthetized oropharyngeal area, the scope was passed without any difficulty. The Pentax EG-[id number] ([id number]) endoscope was introduced through the mouth and advanced to the third portion of the duodenum. Retroflexed views revealed a small hiatal hernia. The gastroscope was then slowly withdrawn and removed. A small hiatal hernia was found Moderate gastritis was found in the body and the antrum of the stomach. Small bowel biopsies obtained with history of chronic unexplained diarrhea. ADVERSE EVENTS: There were no complications. IMPRESSIONS: 1. Small hiatal hernia 2. Moderate gastritis in the body and the antrum of the stomach, s/p biopsies 3. Small bowel biopsies obtained with history of chronic unexplained diarrhea RECOMMENDATIONS: 1. await biopsy results 2. acid suppression therapy REPEAT EXAM: Leonel Wesley Dr eSigned: Leonel Wesley Dr 02/29/2020 3:10 PM cc: Isael Granados CPT CODES: ICD9 CODES: PATIENT NAME: Christina Raphael MR#: [id number]
--- NOTE | 2020-02-29 15:22 | P.PN ---
Subjective Date of Service: 02/29/20 Chief Complaint: Dehydration, UTI Subjective: Improving, Doing well Physical Examination - Vital Signs Temperature: 96.9 F Blood Pressure: 100/56 Pulse: 92 Respirations: 16 Pulse Ox (%): 94 - Physical Exam General: Alert, In no apparent distress, Cooperative, Cachectic HEENT: Atraumatic Neck: Supple Respiratory: Clear to auscultation bilaterally, Normal air movement Cardiovascular: Normal pulses, Regular rate/rhythm Gastrointestinal: Other (Still reporting some mild epigastric pain) Neurological: Normal speech, Normal strength at 5/5 x4 extr, Normal tone, Normal affect - Studies Microbiology Data (last 24 hrs): 02/26/20 19:55 Clean Catch Urine [place] Count - Final 02/26/20 19:55 Clean Catch Urine - Final No growth. 02/27/20 07:54 Blood - Blood Aerobic Blood Culture - Final 02/27/20 07:54 Blood - Blood Blood Culture Gram Stain - Final 02/27/20 07:54 Blood - Blood Anaerobic Blood Culture - Final Medications List Reviewed: Yes Assessment & Plan Discharge Plan: Other (detention facility placement) Plan to discharge in: 72 Hours Physician Review Additional Text: Assessment Nausea, vomiting and diarrhea with muscle wasting and severe protein malnutrition secondary to acute renal failure stage III UTI Large bilateral adrenal masses, left adrenal mass 4.9 cm, right adrenal mass 3.9 cm with noted retroperitoneal adenopathy suspect neoplastic in nature Hyperbilirubinemia Hyponatremia and hypokalemia related to above Past she gastritis with nausea and vomiting Acute anemia with noted B12 deficiency etiology unknown Plan: Nausea, vomiting and diarrhea with muscle wasting and severe protein malnutrit ion secondary to acute renal failure stage III: Continue IV fluids. Patient still with nausea and vomiting. Patient currently NPO for EGD today. Spoke with GI after procedure. Patient with patchy gastritis. Biopsies obtained. Await pathology. Family history of stomach cancer noted. Continue PPI. Advanced diet slowly. Await further workup at this time. Will talk to forensic social worker about possible skilled placement at discharge. Continue physical therapy. Will discuss further with family. UTI: No evidence of infection. Blood and urine culture negative. Discontinue Rocephin. Large bilateral adrenal masses, left adrenal mass 4.9 cm, right adrenal mass 3.9 cm with noted retroperitoneal adenopathy suspect neoplastic in nature: Spoke with oncology. Still need to rule out metastatic disease. CT chest shows right small nodule to the upper lobe. CT brain negative. EGD done today shows patchy gastritis. Await pathology. Spoke with Radiology, no available biopsy based on CT abdomen. Will discuss further with other specialists. Hyperbilirubinemia: Continue IV fluids. MRCP unremarkable. Hyponatremia and hypokalemia related to above: Continue to replace electrolytes. Continue fluids. Patchy gastritis with nausea and vomiting: Patchy gastritis noted from EGD. Continue PPI. Await pathology report. Family history of stomach cancer. This may be possible underlying etiology of adrenal masses. Acute anemia with noted B12 deficiency, etiology unknown: Patient with gastritis. Continue Protonix. Monitor closely. Will replace electrolytes and B12. Time Spent Managing Pts Care (In Minutes): 55
[2020-02-29 16:37] LABS: HIV AG/AB 4TH GEN Non-reactive (Non-reactive)
--- NOTE | 2020-02-29 20:58 | CON ---
Date of Consultation: 02/29/2020 Reason For Consultation: Nausea, vomiting, diarrhea with dehydration on admission with midepigastric greater than generalized abdominal pain. History Of Present Illness: The patient is a 69-year-old white female with history of gastroesophage al reflux disease, hyperlipidemia, and TIA. The patient presented to the hospital with persistent na usea, vomiting, diarrhea over the past 3 weeks, laparoscopic cholecystectomy. In the emergency room, she was noted to be dehydrated with anemia, hemoglobin at 8.9, urinary tract infection with a creati nine of 1.51, generalized weakness, and bilateral adrenal masses anywhere from 3 cm to 4 cm in size. The patient appeared very dehydrated, lethargic, weak, fatigued, and was admitted to the hospital fo r further evaluation and care. Hemoglobin noted to be 8.9. Past Medical History: Significant for the gastroesophageal reflux disease, hyperlipidemia, TIA. Medications: See list. Social History: She is a , 2 daughters. Quit tobacco in the past. No alcohol. Family History: Father of leukemia. Mother of stomach cancer. Paternal grandfather of leukemia. Paternal grandmother of cancer as well. Review of Systems: The patient has midepigastric pain, generalized abdominal pain, nausea, vomiting, diarrhea, dehydrati on, generalized weakness, fatigue. She denies any melena, hematemesis, coffee-grounds emesis, hematu guevara, dysuria, polydipsia, hemoptysis. She does have diarrhea, but no constipation. No syncope, seiz ures, lower extremity edema, muscle aches, joint aches, backaches. No documented depression or anxie ty. Physical Examination: Vital Signs: The patient is 6 feet, 113 pounds, BMI of 15.3 kg/sq m. Temperature 98.7 degrees Fahre nheit, pulse 83, respirations 18, blood pressure 103/55, O2 saturation 95% to 100% on room air. General: She is a thin white female, lying in bed, in no acute distress. HEENT: Normocephalic, atraumatic. Anicteric. Pupils equal, round, and reactive to light. Extraocu lar movements intact. Oropharynx clear. Neck: Supple. No masses. Respirations: Clear to auscultation bilaterally. Cardiac: Regular rate and rhythm. No gallops or rubs. Abdomen: Positive bowel sounds. Soft, nondistended. Pain in the midepigastric as well as generaliz ed abdominal exam with guarding, but no rebound. No peritoneal signs. No hepatosplenomegaly. Extremities: 2+ pulses with mild clubbing, but no cyanosis, no edema. Neurologic: Alert and oriented x3. Grossly nonfocal. 5/5 motor strength. Sensation intact to ligh t touch. Laboratory Data: The patient's white count of 2.6 down from 7.2 on admission, hemoglobin of 8.9 down from 12.4 on admission, MCV of 82, platelet count of 169, polys of 56%, lymphocytes 25%, monocytes 1 7%, eosinophils 0.3%, basophils 1%. The patient has a sodium 144, potassium 4, chloride 114, bicarb 25, BUN 14, creatinine of 0.84, glucose 170, calcium 7.3, magnesium 1.9, total bilirubin 0.8, AST of 23, ALT of 12, alkaline phosphatase 45, total protein 5.0, albumin 1.8, globulin of 3.2. UA shows 1+ blood, negative leukocyte esterase, negative nitrite, 10 to 20 RBCs, less than 5 white blood cells, 5 to 10 squamous epithelial cells, 3+ amorphous sediment, 20 to 50 bacteria, 2+ mucus, 2+ protein. C T abdomen and pelvis showed large bilateral renal masses measuring 4.9 cm on the left, 3.9 cm on the right in size; the right has increased in size. Bilateral renal vein artery most recent findings oth erwise negative. MRCP reveals bilateral renal masses, otherwise negative, normal postcholecystectomy MRCP. Impression: 1.Nausea, vomiting, diarrhea, dehydration since laparoscopic cholecystectomy 3 weeks ago. The patie nt did have infection especially after IV antibiotics with laparoscopic cholecystectomy, which invest igated with stool studies. Continue IV fluids and IV antibiotics. 2.Midepigastric and generalized pain associated with gastroenteritis she has per above. 3.Bilateral renal masses anywhere from 3.9 cm to less than 4.9 cm. 4.Generalized weakness. 5.Anemia. Hemoglobin 8.9. 6.Urinary tract infection with acute renal failure. Creatinine of 1.51, down to 0.84 since admissio n. 7.History of transient ischemic attack, hyperlipidemia, and gastroesophageal reflux disease. Recommendations: 1.PPI therapy. 2.EGD. 3.Monitor labs. 4.Continue p.r.n. pain medications and antiemetics. 5.Check stool studies. 6.Continue IV fluids and IV antibiotics. LAKIA/MARIAN Voice ID: [id number] Report ID: [id number]
--- NOTE | 2020-02-29 23:13 | P.PN ---
Date of Service: 02/29/20 Vital Signs Temp Pulse Resp BP Pulse Ox 98.6 F 97 H 17 101/65 92 02/29/20 20:00 02/29/20 20:00 02/29/20 20:00 02/29/20 20:00 02/29/20 20:00 Medications Acetaminophen (Tylenol -Extra Strength) 500 mg PO Q4HP PRN PRN Reason: TEMP > 100' F Stop: 03/27/20 21:19 Last Admin: 02/28/20 01:02 Dose: 500 mg Documented by: Calcitriol (Rocaltrol) 0.5 mcg PO DAILY [facility] Stop: 03/29/20 09:01 Last Admin: 02/29/20 07:28 Dose: Not Given Documented by: Cholecalciferol (Vitamin D 5,000 Iu Cap) 5,000 unit PO DAILY [facility] Stop: 03/29/20 09:01 Last Admin: 02/29/20 07:28 Dose: Not Given Documented by: Docusate Sodium (Colace Cap) 100 mg PO BID [facility] Stop: 03/29/20 09:01 Last Admin: 02/29/20 20:17 Dose: 100 mg Documented by: Enoxaparin Sodium (Lovenox 40 Mg Inj) 40 mg SQ DAILY [facility] Stop: 03/28/20 09:01 Last Admin: 02/29/20 07:27 Dose: Not Given Documented by: Ceftriaxone Sodium/Sodium Chloride (Rocephin 1 Gm/10 Ml Swi Ivp) 1 gm in 10 mls @ 600 mls/hr IV DAILY [facility]; Protocol Stop: 03/28/20 09:01 Last Admin: 02/29/20 08:12 Dose: 10 mls Documented by: Dextrose/Sodium Chloride (Dextrose 5% O.45% Saline) 1,000 mls @ 125 mls/hr IV .Q8H [facility] Stop: 03/29/20 11:01 Last Admin: 02/29/20 17:33 Dose: Not Given Documented by: Lorazepam (Ativan) 0.25 mg IV Q6H PRN PRN Reason: ANXIETY Stop: 03/27/20 21:19 Last Admin: 02/28/20 01:03 Dose: 0.25 mg Documented by: Nutritional Formula (Ensure High Protein) 237 ml PO BID [facility] Stop: 03/28/20 21:01 Last Admin: 02/29/20 20:18 Dose: 237 ml Documented by: Ondansetron HCl (Zofran) 4 mg IV Q4HP PRN PRN Reason: NAUSEA / VOMITING Stop: 03/27/20 21:19 Last Admin: 02/29/20 15:52 Dose: 4 mg Documented by: Pantoprazole Sodium (Protonix Inj) 40 mg IVP DAILY [facility]; Protocol Stop: 03/30/20 09:01 Last Admin: 02/29/20 08:12 Dose: 40 mg Documented by: Promethazine HCl (Phenergan) 12.5 mg IV Q4H PRN PRN Reason: NAUSEA / VOMITING Stop: 03/27/20 21:19 Last Admin: 02/29/20 20:17 Dose: 12.5 mg Documented by: Sodium Bicarbonate (Sodium Bicarb 325 Mg) 650 mg PO TIDWM [facility] Stop: 03/29/20 08:01 Last Admin: 02/29/20 16:00 Dose: 650 mg Documented by: Sodium Chloride (Normal Saline Flush) 10 ml IV BID [facility] Stop: 03/28/20 09:01 Last Admin: 02/29/20 20:18 Dose: 10 ml Documented by: Sodium Chloride (Sodium Chloride 10 Ml Inj) 10 ml IV UD PRN PRN Reason: Diluant Stop: 03/29/20 10:43 Lab Results (last 24 hrs) 02/27/20 07:54: HIV 1&2 Ag/Ab, 4th Gen Non-reactive Microbiology Results 02/26/20 19:55 Clean Catch Urine [place] Count - Final 02/26/20 19:55 Clean Catch Urine - Final No growth. 02/27/20 07:54 Blood - Blood Aerobic Blood Culture - Final 02/27/20 07:54 Blood - Blood Blood Culture Gram Stain - Final 02/27/20 07:54 Blood - Blood Anaerobic Blood Culture - Final 02/27/20 07:59 Blood - Blood Aerobic Blood Culture - Preliminary No growth in 24 hours. 02/27/20 07:59 Blood - Blood Anaerobic Blood Culture - Final 02/26/20 22:45 Nasoph[facility] Coronavirus COVID-19 PCR - Final 02/26/20 17:00 Nasoph[facility] Influenza Type A Antigen Screen - Final 02/26/20 17:00 Nasopharnyx Influenza Type B Antigen Screen - Final Assessment/ Plan: Nephrology CPS stable without CP or SOB. Persistent malaise. No acute events overnight. Vitals, medications, blood work and imaging reviewed in the chart. NAD. MMM. Neck supple. CTA. RRR. Soft Abd. No C/C/E. No rash. AAO. Normal Speech. Laboratory Data (last 24 hrs) 02/26/20 17:00: WBC 7.2, Hgb 12.4, Hct 36.7, Plt Count 250 02/26/20 17:00: Sodium 135 L, Potassium 3.4 L, BUN 25 H, Creatinine 1.51 H, Glucose 121 H, Total Bilirubin 2.4 H, AST 30, ALT 16, Alkaline Phosphatase 70, Lipase 309 Conclusions/Impression: A/ KING, improving Hyponatremia Hypokalemia Acidosis Hypocalcemia Moderate malnutrition Anemia in chronic illness BL Adrenal Masses P/ Continue current POC and Medications. Agree with the functional evaluation of the adrenal masses including the 24 hour urine; results pending. Continue IVF. Replete potassium prn. Continue Vitamin D. Discontinue oral bicarb. No NSAIDs. AM Labs. Daily weight.
[2020-03-01] MEDS: D5 0.45 NS 1,000 ML IV SCH ×3 (00:47→09:29)
[2020-03-01 06:32] LABS: Albumin 1.8 g/dL (3.4-5.0); Bilirubin Total 0.7 mg/dL (0.2-1.0); Magnesium 1.8 mg/dL (1.8-2.4); Potassium 3.4 mmol/L (3.5-5.1); Protein, Total 4.8 g/dL (6.4-8.2)
[2020-03-01 06:46] LABS: Absolute Lymphocytes (CBC) 0.6 K/uL (0.7-4.9); Basophils % 1.4 % (0-1.3); Lymphocytes % 21.1 % (15.3-44.8); MPV 9.5 fL (7.6-11.3); RBC Red Blood Cell Count 3.17 M/uL (3.86-4.86)
[2020-03-01] MEDS: ENSURE HIGH PROTEIN 237 ML CAN PO SCH ×2 (09:00→21:00)
[2020-03-01] MEDS ORDERED: POTASSIUM CL SA 10 MEQ TAB PO ONE (09:00)
[2020-03-01] MEDS ORDERED: MAGNESIUM SULFATE 1 gm IVPB 1 GM/100 ML BAG IV ONE (09:00)
[2020-03-01] MEDS: PANTOPRAZOLE 40 MG INJ IVP SCH (09:03)
[2020-03-01] MEDS: CEFTRIAXONE/SWI 1gm 1 GM/10 ML SYR IV SCH (09:03)
[2020-03-01] MEDS: DOCUSATE NA 100 MG CAP PO SCH ×2 (09:04→20:36)
[2020-03-01] MEDS: VITAMIN D 5,000 UNIT CAP PO SCH (09:04)
[2020-03-01] MEDS: CALCITROL 0.25 MCG CAP PO SCH (09:04)
[2020-03-01] MEDS: ENOXAPARIN 40 MG/0.4 ML SQ SCH (09:05)
[2020-03-01 09:22] LABS: White Blood Cell Scan OK (OK)
[2020-03-01 09:23] LABS: Blood Morphology Comment NOT SEEN (NOT SEEN); Platelet Estimate DECR
[2020-03-01] MEDS: PROMETHAZINE INJ 25 MG/ML AMP IV PRN ×2 (09:28→13:58)
--- NOTE | 2020-03-01 11:13 | P.PN ---
Subjective Date of Service: 03/01/20 Chief Complaint: Dehydration, UTI Subjective: C/O voiced (-complain of shortness of breath. -Complain of patient's abdominal distention -States some mild pain post EGD yesterday but improved now -States she is tolerating p.o. better State improved nausea post EGD -EGD done yesterday with finding of gastritis, biopsy obtained) Physical Examination - Vital Signs Temperature: 97.6 F Blood Pressure: 131/60 Pulse: 96 Respirations: 18 Pulse Ox (%): 95 - Physical Exam General: Alert, In no apparent distress, Oriented x3, Other (chronically ill looking ) HEENT: Atraumatic, Normocephalic, PERRLA, Mucous membr. moist/pink Neck: Supple, 2+ carotid pulse no bruit, JVD not distended Respiratory: Normal air movement, Crackles/rales Cardiovascular: No edema, Normal pulses, Regular rate/rhythm, Normal S1 S2 Gastrointestinal: Normal bowel sounds, Soft and benign, Non-distended Musculoskeletal: No clubbing, No swelling Integumentary: No rashes, No breakdown Neurological: Normal gait, Normal speech, Normal strength at 5/5 x4 extr - Studies Microbiology Data (last 24 hrs): 02/26/20 19:55 Clean Catch Urine [place] Count - Final 02/26/20 19:55 Clean Catch Urine - Final No growth. 02/27/20 07:54 Blood - Blood Aerobic Blood Culture - Final 02/27/20 07:54 Blood - Blood Blood Culture Gram Stain - Final 02/27/20 07:54 Blood - Blood Anaerobic Blood Culture - Final Medications List Reviewed: Yes Assessment & Plan - Problems (Diagnosis) (1) Chronic malnutrition Current Visit: Yes Status: Acute (2) Gastritis Current Visit: Yes Status: Acute (3) HTN (hypertension) Current Visit: Yes Status: Acute (4) Hypokalemia Current Visit: Yes Status: Acute (5) Hypocalcemia Current Visit: Yes Status: Acute Physician Review: Patient Assessed, Agree with Above Assessment and Plan Physician Review Additional Text: Assessment Post cholecystectomy syndrome Acute Gastritis Persistent Nausea, vomiting and diarrhea Muscle wasting and severe protein malnutrition - due to 1 above UTI ARF - due to 1 , improved Large bilateral adrenal masses, left adrenal mass 4.9 cm, right adrenal mass 3.9 cm with noted retroperitoneal adenopathy suspect neoplastic in nature -likely incidental Hyperbilirubinemia Hyponatremia and hypokalemia related to 1 above Acute anemia with noted B12 deficiency etiology unknown Mild fluid overload symptoms Plan: Nausea, vomiting and diarrhea with muscle wasting and severe protein malnutrition secondary to acute renal failure stage III: due to post antwon syndrome - will dc IVF now since tolerating po better now - still gaseous symptoms , will add simethicone Gastritis - s/p EGD with patchy gastritis. Biopsies obtained. Await pathology. Family history of stomach cancer noted. Continue PPI. Fluid overload- dc IVF, dose lasix today UTI: No evidence of infection. Blood and urine culture negative. off abx Large bilateral adrenal masses, left adrenal mass 4.9 cm, right adrenal mass 3.9 cm with noted retroperitoneal adenopathy suspect neoplastic in nature: Spoke with oncology. Still need to rule out metastatic disease. CT chest shows right small nodule to the upper lobe. CT brain negative. -will obtain MRI abdomen as outpt for hounsfield unit and possibility of malignancy although less likely since b/l lesions and no clinical signs of hyperfunctional adrenal glands -Per Radiology, no available biopsy based on CT abdomen. no further workup at this time Hyperbilirubinemia: Continue IV fluids. MRCP unremarkable. Hyponatremia and hypokalemia related to above: will replete k Patchy gastritis with nausea and vomiting: c/w PPI - Patchy gastritis noted from EGD. Continue PPI. Await pathology report. Family history of stomach cancer. -Doubt related to adrenal masses. Acute anemia with noted B12 deficiency, etiology unknown: Patient with gastritis. Continue Protonix. Monitor closely. Will replace electrolytes and B12.
[2020-03-01] MEDS ORDERED: FUROSEMIDE 40 MG/4 ML VIAL IV ONE (11:21)
[2020-03-01] MEDS: KCL 20 MEQ/100 mL IVPB 20 MEQ/100 ML BAG IV SCH ×2 (11:28→13:55)
[2020-03-01] MEDS: SIMETHICONE 80 MG TAB PO SCH ×2 (13:55→20:36)
--- NOTE | 2020-03-01 19:45 | P.PN ---
Subjective Date of Service: 03/01/20 Chief Complaint: N/V, diarrhea, SISI>general abdominal pain, anemia, hgb 8.9,Dehydration, UTI Subjective: New changes (Feeling somewhat better with less N/V, abdominal pain. No diarrhea today. Cr decreased from 1.51 to 0.77. Tolerating p.o. diet better.) Review of Systems 10-point ROS is otherwise unremarkable General: Weakness, Malaise Gastrointestinal: Nausea (Improved.), Abdominal Pain (Improved.) Physical Examination - Vital Signs Temperature: 97.2 F Blood Pressure: 100/60 Pulse: 103 Respirations: 19 Pulse Ox (%): 97 - Physical Exam General: Alert, In no apparent distress, Oriented x3, Cooperative HEENT: Atraumatic, Normocephalic, PERRLA, EOMI Neck: Supple Respiratory: Normal air movement Cardiovascular: Normal pulses Gastrointestinal: No rebound, Tenderness (Improved.), Guarding (Improved.) Neurological: Normal speech - Studies Medications List Reviewed: Yes Assessment And Plan - Current Problems (Diagnosis) (1) Nausea & vomiting Current Visit: Yes Status: Acute Comment: Improved. (2) Epigastric abdominal pain Current Visit: Yes Status: Acute Comment: Improved. (3) Generalized abdominal pain Current Visit: Yes Status: Acute Comment: Improved. (4) Change in bowel habits Current Visit: Yes Status: Acute Comment: None today. (5) Diarrhea Current Visit: Yes Status: Acute Comment: None today. (6) Anemia Current Visit: Yes Status: Acute (7) Dehydration Current Visit: No Status: Acute Comment: Improved. - Plan REC: 1) continue IVFs & IV antibiotics 2) monitor labs 3) await remaining stool studies 4) await oncology eval of 3.9 to 4.9 cm adrenal masses Physician Review: Patient Assessed, Agree with Above Assessment and Plan Physician Review Additional Text: Assessment Post cholecystectomy syndrome Acute Gastritis Persistent Nausea, vomiting and diarrhea Muscle wasting and severe protein malnutrition - due to 1 above UTI ARF - due to 1 , improved Large bilateral adrenal masses, left adrenal mass 4.9 cm, right adrenal mass 3.9 cm with noted retroperitoneal adenopathy suspect neoplastic in nature -likely incidental Hyperbilirubinemia Hyponatremia and hypokalemia related to 1 above Acute anemia with noted B12 deficiency etiology unknown Mild fluid overload symptoms Plan: Nausea, vomiting and diarrhea with muscle wasting and severe protein malnutrition secondary to acute renal failure stage III: due to post antwon syndrome - will dc IVF now since tolerating po better now - still gaseous symptoms , will add simethicone Gastritis - s/p EGD with patchy gastritis. Biopsies obtained. Await pathology. Family history of stomach cancer noted. Continue PPI. Fluid overload- dc IVF, dose lasix today UTI: No evidence of infection. Blood and urine culture negative. off abx Large bilateral adrenal masses, left adrenal mass 4.9 cm, right adrenal mass 3.9 cm with noted retroperitoneal adenopathy suspect neoplastic in nature: Spoke w [facility] oncology. Still need to rule out metastatic disease. CT chest shows right small nodule to the upper lobe. CT brain negative. -will obtain MRI abdomen as outpt for hounsfield unit and possibility of malignancy although less likely since b/l lesions and no clinical signs of hyperfunctional adrenal glands -Per Radiology, no available biopsy based on CT abdomen. no further workup at this time Hyperbilirubinemia: Continue IV fluids. MRCP unremarkable. Hyponatremia and hypokalemia related to above: will replete k Patchy gastritis with nausea and vomiting: c/w PPI - Patchy gastritis noted from EGD. Continue PPI. Await pathology report. Family history of stomach cancer. -Doubt related to adrenal masses. Acute anemia with noted B12 deficiency, etiology unknown: Patient with gastritis. Continue Protonix. Monitor closely. Will replace electrolytes and B12.
[2020-03-02] MEDS: SODIUM CHLORIDE 0.9% 10ML INJ IV PRN (09:03)
[2020-03-02] MEDS: CALCITROL 0.25 MCG CAP PO SCH (09:03)
[2020-03-02] MEDS: VITAMIN D 5,000 UNIT CAP PO SCH (09:03)
[2020-03-02] MEDS: PANTOPRAZOLE 40 MG INJ IVP SCH (09:03)
[2020-03-02] MEDS: ENOXAPARIN 40 MG/0.4 ML SQ SCH (09:03)
[2020-03-02] MEDS: CEFTRIAXONE/SWI 1gm 1 GM/10 ML SYR IV SCH (09:04)
[2020-03-02] MEDS: ENSURE HIGH PROTEIN 237 ML CAN PO SCH ×2 (09:04→21:14)
[2020-03-02] MEDS: SIMETHICONE 80 MG TAB PO SCH ×3 (09:04→21:13)
[2020-03-02] MEDS: DOCUSATE NA 100 MG CAP PO SCH ×2 (09:04→21:12)
--- NOTE | 2020-03-02 10:28 | P.PN ---
Subjective Date of Service: 03/02/20 Chief Complaint: N/V, diarrhea, SISI>general abdominal pain, anemia, hgb 8.9,Dehydration, UTI Subjective: No new changes, No C/O voiced Physical Examination - Vital Signs Temperature: 99.6 F Blood Pressure: 107/59 Pulse: 105 Respirations: 16 Pulse Ox (%): 97 - Physical Exam General: Alert, In no apparent distress, Oriented x3, Oriented x2 HEENT: Atraumatic, Normocephalic, PERRLA, Mucous membr. moist/pink Neck: Supple, 2+ carotid pulse no bruit, JVD not distended Respiratory: Clear to auscultation bilaterally, Diminished Cardiovascular: No edema, Normal pulses, Regular rate/rhythm, Normal S1 S2 Gastrointestinal: Normal bowel sounds, Soft and benign, Non-distended Musculoskeletal: No clubbing, No swelling Integumentary: No rashes, No breakdown Neurological: Normal speech, Normal strength at 5/5 x4 extr - Studies Medications List Reviewed: Yes Assessment & Plan - Problems (Diagnosis) (1) Chronic malnutrition Current Visit: Yes Status: Acute (2) Gastritis Current Visit: Yes Status: Acute (3) HTN (hypertension) Current Visit: Yes Status: Acute (4) Hypokalemia Current Visit: Yes Status: Acute (5) Hypocalcemia Current Visit: Yes Status: Acute Physician Review: Patient Assessed, Agree with Above Assessment and Plan Physician Review Additional Text: Assessment 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 Acute Gastritis Persistent Nausea, vomiting and diarrhea Muscle wasting and severe protein malnutrition - due to 1 above UTI ARF - due to 1 , improved Large bilateral adrenal masses, left adrenal mass 4.9 cm, right adrenal mass 3.9 cm with noted retroperitoneal adenopathy -possible neoplastic in nature vs likely incidental Hyperbilirubinemia Hyponatremia and hypokalemia related to 1 above Acute anemia with noted B12 deficiency etiology unknown Mild fluid overload symptoms Plan: Nausea, vomiting and diarrhea with muscle wasting and severe protein malnutrition secondary to acute renal failure stage III: due to post antwon syndrome - still feeling of abdominal distension - Improved gas symptoms , c/w simethicone -will add reglan qid and qc for for presumed motility issues Gastritis - s/p EGD with patchy gastritis. Biopsies obtained. Await pathology. Family history of stomach cancer noted. Continue PPI. -follow GI , await stool studies Fluid overload-improved post lasix , improving oxygenation -02 weaned down to 1 L today UTI: No evidence of infection. Blood and urine culture negative. off abx Large bilateral adrenal masses, left adrenal mass 4.9 cm, right adrenal mass 3.9 cm with noted retroperitoneal adenopathy -s/p prior d/w oncology. Still need to rule out metastatic disease. CT chest shows right small nodule to the upper lobe. CT brain negative. -will obtain MRI abdomen as outpt for hounsfield unit and possibility of malignancy although less likely since b/l lesions and no clinical signs of hyperfunctional adrenal glands -Per Radiology, unable to do biopsy based on CT abdomen. no further workup at this time Hyperbilirubinemia: Continue IV fluids. MRCP unremarkable. Hyponatremia and hypokalemia related to above: follow repeat in am Patchy gastritis with nausea and vomiting: c/w PPI - Patchy gastritis noted from EGD. Continue PPI. Await pathology report. Family history of stomach cancer. -Doubt related to adrenal masses. Acute anemia with noted B12 deficiency, etiology unknown: Patient with gastritis. Continue Protonix. Monitor closely. Will replace electrolytes and B12.
[2020-03-02] MEDS: ONDANSETRON 4 MG/2 ML VIAL IV PRN (10:44)
[2020-03-02] MEDS: METOCLOPRAMIDE 5 MG TAB PO SCH ×4 (11:30→21:13)
--- NOTE | 2020-03-02 20:49 | P.PN ---
Date of Service: 03/02/20 Vital Signs Temp Pulse Resp BP Pulse Ox 98.2 F 107 H 16 114/61 95 03/02/20 20:00 03/02/20 20:00 03/02/20 20:00 03/02/20 20:00 03/02/20 20:00 Medications Acetaminophen (Tylenol -Extra Strength) 500 mg PO Q4HP PRN PRN Reason: TEMP > 100' F Stop: 03/27/20 21:19 Last Admin: 02/28/20 01:02 Dose: 500 mg Documented by: Calcitriol (Rocaltrol) 0.5 mcg PO DAILY [facility] Stop: 03/29/20 09:01 Last Admin: 03/02/20 09:03 Dose: 0.5 mcg Documented by: Cholecalciferol (Vitamin D 5,000 Iu Cap) 5,000 unit PO DAILY [facility] Stop: 03/29/20 09:01 Last Admin: 03/02/20 09:03 Dose: 5,000 unit Documented by: Docusate Sodium (Colace Cap) 100 mg PO BID [facility] Stop: 03/29/20 09:01 Last Admin: 03/02/20 09:04 Dose: 100 mg Documented by: Enoxaparin Sodium (Lovenox 40 Mg Inj) 40 mg SQ DAILY [facility] Stop: 03/28/20 09:01 Last Admin: 03/02/20 09:03 Dose: 40 mg Documented by: Ceftriaxone Sodium/Sodium Chloride (Rocephin 1 Gm/10 Ml Swi Ivp) 1 gm in 10 mls @ 600 mls/hr IV DAILY [facility]; Protocol Stop: 03/28/20 09:01 Last Admin: 03/02/20 09:04 Dose: 10 mls Documented by: Lorazepam (Ativan) 0.25 mg IV Q6H PRN PRN Reason: ANXIETY Stop: 03/27/20 21:19 Last Admin: 02/28/20 01:03 Dose: 0.25 mg Documented by: Metoclopramide HCl (Reglan) 5 mg PO ACHS [facility] Stop: 04/01/20 11:31 Last Admin: 03/02/20 16:45 Dose: 5 mg Documented by: Nutritional Formula (Ensure High Protein) 237 ml PO BID [facility] Stop: 03/28/20 21:01 Last Admin: 03/02/20 09:04 Dose: 237 ml Documented by: Ondansetron HCl (Zofran) 4 mg IV Q4HP PRN PRN Reason: NAUSEA / VOMITING Stop: 03/27/20 21:19 Last Admin: 03/02/20 10:44 Dose: 4 mg Documented by: Pantoprazole Sodium (Protonix Inj) 40 mg IVP DAILY [facility]; Protocol Stop: 03/30/20 09:01 Last Admin: 03/02/20 09:03 Dose: 40 mg Documented by: Promethazine HCl (Phenergan) 12.5 mg IV Q4H PRN PRN Reason: NAUSEA / VOMITING Stop: 03/27/20 21:19 Last Admin: 03/01/20 13:58 Dose: 12.5 mg Documented by: Simethicone (Mylicon Tab) 80 mg PO TID [facility] Stop: 03/31/20 14:01 Last Admin: 03/02/20 14:25 Dose: 80 mg Documented by: Sodium Chloride (Normal Saline Flush) 10 ml IV BID [facility] Stop: 03/28/20 09:01 Last Admin: 03/02/20 09:03 Dose: 10 ml Documented by: Sodium Chloride (Sodium Chloride 10 Ml Inj) 10 ml IV UD PRN PRN Reason: Diluant Stop: 03/29/20 10:43 Last Admin: 03/02/20 09:03 Dose: 10 ml Documented by: Microbiology Results 02/26/20 19:55 Clean Catch Urine [place] Count - Final 02/26/20 19:55 Clean Catch Urine - Final No growth. 02/27/20 07:54 Blood - Blood Aerobic Blood Culture - Final 02/27/20 07:54 Blood - Blood Blood Culture Gram Stain - Final 02/27/20 07:54 Blood - Blood Anaerobic Blood Culture - Final 02/27/20 07:59 Blood - Blood Aerobic Blood Culture - Preliminary No growth in 24 hours. 02/27/20 07:59 Blood - Blood Anaerobic Blood Culture - Final 02/26/20 22:45 Nasopharnyx Coronavirus COVID-19 PCR - Final 02/26/20 17:00 Nas[facility] Influenza Type A Antigen Screen - Final 02/26/20 17:00 Nasopharnyx Influenza Type B Antigen Screen - Final Assessment/ Plan: Nephrology CPS stable without CP or SOB. Persistent malaise with nausea. No acute events overnight. Vitals, medications, blood work and imaging reviewed in the chart. NAD. MMM. Neck supple. CTA. RRR. Soft Abd. No C/C/E. No rash. AAO. Normal Speech. Laboratory Data (last 24 hrs) 02/26/20 17:00: WBC 7.2, Hgb 12.4, Hct 36.7, Plt Count 250 02/26/20 17:00: Sodium 135 L, Potassium 3.4 L, BUN 25 H, Creatinine 1.51 H, Glucose 121 H, Total Bilirubin 2.4 H, AST 30, ALT 16, Alkaline Phosphatase 70, Lipase 309 Conclusions/Impression: A/ KING, improving Hyponatremia Hypokalemia Acidosis Hypocalcemia Moderate malnutrition Anemia in chronic illness BL Adrenal Masses P/ Continue current POC and Medications. Agree with the functional evaluation of the adrenal masses including the 24 hour urine; results pending. IVF prn. Replete potassium prn. Start promod. Encourage nutrition. No NSAIDs. AM Labs. Daily weight.
[2020-03-02] MEDS: LORazepam 2 MG/ML VIAL IV PRN (21:12)
[2020-03-03 04:19] LABS: Absolute Lymphocytes (CBC) 0.8 K/uL (0.7-4.9); Basophils % 1.3 % (0-1.3); Lymphocytes % 23.1 % (15.3-44.8); MPV 10.2 fL (7.6-11.3); RBC Red Blood Cell Count 3.19 M/uL (3.86-4.86)
[2020-03-03 04:32] LABS: Albumin 1.8 g/dL (3.4-5.0); Bilirubin Total 0.8 mg/dL (0.2-1.0); Potassium 4.4 mmol/L (3.5-5.1); Protein, Total 5.1 g/dL (6.4-8.2)
[2020-03-03 06:52] LABS: HBsAG Nonreactive (Nonreactive)
[2020-03-03] MEDS: CEFTRIAXONE/SWI 1gm 1 GM/10 ML SYR IV SCH (07:42)
[2020-03-03] MEDS: METOCLOPRAMIDE 5 MG TAB PO SCH ×4 (07:43→21:52)
[2020-03-03] MEDS: PANTOPRAZOLE 40 MG INJ IVP SCH (07:43)
[2020-03-03] MEDS: ENOXAPARIN 40 MG/0.4 ML SQ SCH (07:43)
[2020-03-03] MEDS: DOCUSATE NA 100 MG CAP PO SCH ×2 (07:43→21:52)
[2020-03-03] MEDS: CALCITROL 0.25 MCG CAP PO SCH (07:43)
[2020-03-03] MEDS: VITAMIN D 5,000 UNIT CAP PO SCH (07:43)
[2020-03-03] MEDS: SIMETHICONE 80 MG TAB PO SCH ×3 (07:43→21:52)
[2020-03-03] MEDS: PROMOD 30 ML DOSE PO SCH ×2 (07:44→21:00)
[2020-03-03] MEDS: SODIUM CHLORIDE 0.9% 10ML INJ IV PRN (07:44)
[2020-03-03] MEDS: ENSURE HIGH PROTEIN 237 ML CAN PO SCH ×2 (07:44→21:00)
[2020-03-03] MEDS: ONDANSETRON 4 MG/2 ML VIAL IV PRN (09:59)
--- NOTE | 2020-03-03 13:41 | P.PN ---
Subjective Date of Service: 03/03/20 PATIENT COMPLAINTS OF NAUSEA. SHE HAS BEEN DRY HEAVING IN FRONT OF ME. AROUND NOON HER HEART RATE WAS IN THE 130S IN HER BLOOD PRESSURE WAS 90/50's. SHE WAS OKAY TO BE DISCHARGED TO [facility]. HOWEVER, WITH HER STILL HAVING THESE COMPLAINTS OF ON THINK SHE IS STABLE TO GO TO THE [facility] AT THIS TIME. NOT REALLY SURE WHY SHE IS HAVING THE TACHYARRHYTHMIA. WILL CHECK THYROID STUDIES. IF SHE DOES HAVE ADRENAL GLAND ISSUES THAT ARE CAUSING IT THAN SHE SHOULD ALSO HAVE ELEVATED BLOOD PRESSURE.. METANEPHRINES IN THE URINE ARE PENDING. POSSIBLY DEHYDRATED URINE IS DARK & HER MOUTH SEEMS VERY DRY. WILL HYDRATE HER IV FLUIDS AND SEE IF SHE IMPROVES. Review of Systems 10-point ROS is otherwise unremarkable Physical Examination - Vital Signs Temperature: 97.7 F Blood Pressure: 97/53 Pulse: 130 Respirations: 18 Pulse Ox (%): 96 - Physical Exam General: Alert, Other (PATIENT'S MOUTH SEEMS TO BE DRY. SHE WAS DRY HEAVING WHEN I SAW HER.) Respiratory: Clear to auscultation bilaterally, Normal air movement Cardiovascular: Regular rate/rhythm, Normal S1 S2, No murmurs Gastrointestinal: Normal bowel sounds, Soft and benign, Non-distended, No tenderness, No rebound, No guarding Musculoskeletal: No clubbing, No swelling Neurological: Normal strength at 5/5 x4 extr, Normal tone, Sensation intact, Cranial nerves 3-12 intact - Studies Microbiology Data (last 24 hrs): 02/27/20 07:59 Blood - Blood Aerobic Blood Culture - Final No growth in 5 days. 02/27/20 07:59 Blood - Blood Anaerobic Blood Culture - Final Medications List Reviewed: Yes Assessment & Plan - Problems (Diagnosis) (1) Tachyarrhythmia Current Visit: Yes Status: Acute (2) Hypotension Current Visit: Yes Status: Acute (3) Mass of adrenal gland Current Visit: Yes Status: Acute (4) Anemia Current Visit: Yes Status: Acute (5) Chronic malnutrition Current Visit: Yes Status: Acute (6) HTN (hypertension) Current Visit: Yes Status: Acute (7) Nausea & vomiting Current Visit: Yes Status: Acute (8) Dehydration Current Visit: No Status: Acute (9) Lactic acid acidosis Current Visit: Yes Status: Acute - Plan PLAN: 1. IV HYDRATION AND ANTI-EMETICS 2. ECHOCARDIOGRAM 3. THYROID STUDIES 4. CONTINUE WITH ANTIBIOTIC THERAPY 5. MONITOR HEMODYNAMICS CLOSELY 6. WORKUP FOR ADRENAL MASS PENDING 7. COVERAGE TESTING NEGATIVE TODAY 8. AWAITING FOR STABILIZATION PRIOR TO GOING TO USE SNF FACILITY 9. GI AND DVT PROPHYLAXIS Discharge Plan: Home Plan to discharge in: Greater than 2 days - Advance Directives Does patient have a Living Will: No Does patient have a Durable POA for Healthcare: No - Code Status/Comfort Care Code Status: Do Not Attempt Resuscitat Physician Review: Patient Assessed, Agree with Above Assessment and Plan Critical Care: No Time Spent Managing PTS Care (In Minutes): 30
[2020-03-03] MEDS ORDERED: NA CHLORIDE 0.9% 500 ML IV ONE (14:00)
[2020-03-03] MEDS: NA CHLORIDE 0.9% 1,000 ML IV SCH ×2 (14:09→21:52)
[2020-03-03 16:03] LABS: Urine 24HR Volume Metan 925 mL
[2020-03-03] MEDS: ACETAMINOPHEN 500 MG TAB PO PRN (21:51)
[2020-03-04] MEDS: NA CHLORIDE 0.9% 1,000 ML IV SCH ×3 (04:57→19:45)
[2020-03-04] MEDS: ONDANSETRON 4 MG/2 ML VIAL IV PRN (05:12)
[2020-03-04 06:01] LABS: Albumin 1.7 g/dL (3.4-5.0); Bilirubin Total 0.8 mg/dL (0.2-1.0); C-Reactive Protein 26.4 mg/L (<3.00); Ferritin 2638.6 ng/mL (8-388); Phosphorus 3.3 mg/dL (2.5-4.9); Potassium 4.3 mmol/L (3.5-5.1); Protein, Total 4.8 g/dL (6.4-8.2); Thyroid Stimulating Hormone 1.59 uIU/mL (0.360-3.740)
[2020-03-04 06:13] LABS: Absolute Lymphocytes (CBC) 0.7 K/uL (0.7-4.9); Basophils % 1.2 % (0-1.3); Hematocrit 22.7 % (36.0-45.0); MPV 10.3 fL (7.6-11.3); RBC Red Blood Cell Count 2.82 M/uL (3.86-4.86)
[2020-03-04] MEDS ORDERED: HYDROCORTISONE SUC 100 MG INJ IV ONE (08:20)
[2020-03-04] MEDS: METOCLOPRAMIDE 5 MG TAB PO SCH ×4 (08:43→19:44)
[2020-03-04] MEDS: CYANOCOBALAMIN 1,000 MCG TAB SL SCH (08:54)
[2020-03-04] MEDS: VITAMIN D 5,000 UNIT CAP PO SCH (08:54)
[2020-03-04] MEDS: CEFTRIAXONE/SWI 1gm 1 GM/10 ML SYR IV SCH (08:54)
[2020-03-04] MEDS: PANTOPRAZOLE 40 MG INJ IVP SCH (08:54)
[2020-03-04] MEDS: DOCUSATE NA 100 MG CAP PO SCH ×2 (08:54→19:44)
[2020-03-04] MEDS: CALCITROL 0.25 MCG CAP PO SCH (08:54)
[2020-03-04] MEDS: PROMOD 30 ML DOSE PO SCH ×2 (08:56→19:44)
[2020-03-04] MEDS: WATER FOR INJ,STERILE 10 ML IV SCH (08:57)
[2020-03-04] MEDS: SIMETHICONE 80 MG TAB PO SCH ×3 (09:00→19:44)
[2020-03-04] MEDS: ENOXAPARIN 40 MG/0.4 ML SQ SCH (09:00)
[2020-03-04] MEDS: ENSURE HIGH PROTEIN 237 ML CAN PO SCH ×2 (09:00→19:44)
[2020-03-04 10:40] LABS: Anisocytosis 2+; Blood Morphology Comment NOTED (NOT SEEN); Platelet Estimate DECR
[2020-03-04 14:11] LABS: 24 HR VOLUME 925 mL/24 h; Epinephrine Level REPORT
[2020-03-04] MEDS: ACETAMINOPHEN 500 MG TAB PO PRN (19:44)
[2020-03-04 22:16] LABS: Albumin, (SPE) 2.7 g/dL (3.8-4.8); Alpha-1-Globulins 0.5 g/dL (0.2-0.3); Alpha-2-Globulins 0.5 g/dL (0.5-0.9); Gamma Globulins 1.2 g/dL (0.8-1.7); INTERPRETATION REPORT
[2020-03-05] MEDS: NA CHLORIDE 0.9% 1,000 ML IV SCH ×4 (03:04→21:20)
[2020-03-05] MEDS: ACETAMINOPHEN 500 MG TAB PO PRN (03:07)
[2020-03-05 05:12] LABS: Absolute Lymphocytes (CBC) 0.4 K/uL (0.7-4.9); Basophils % 1.3 % (0-1.3); Lymphocytes % 20.3 % (15.3-44.8); MPV 9.8 fL (7.6-11.3); RBC Red Blood Cell Count 2.43 M/uL (3.86-4.86)
[2020-03-05 05:18] LABS: Albumin 1.7 g/dL (3.4-5.0); Bilirubin Total 0.9 mg/dL (0.2-1.0); Potassium 3.5 mmol/L (3.5-5.1); Protein, Total 4.6 g/dL (6.4-8.2)
[2020-03-05] MEDS ORDERED: POTASSIUM CL SA 10 MEQ TAB PO ONE (05:54)
--- NOTE | 2020-03-05 07:09 | P.PN ---
Subjective Date of Service: 03/04/20 Patient is slowly improving. We hydrated her and her heart rate has come down. She is eating a little bit better today. Severe malnutrition with hypoalbuminemia. Albumin is only 1.7. She has had a 60 lb weight loss. Awaiting for intermediate facility placement which has been delayed because of her positive COVID-19 test. Patient is requesting it to be repeated. Her family members are to as it may affect her job. Review of Systems 10-point ROS is otherwise unremarkable Physical Examination - Vital Signs Temperature: 98.4 F Blood Pressure: 104/58 Pulse: 93 Respirations: 20 Pulse Ox (%): 95 - Physical Exam General: Alert, In no apparent distress, Oriented x3 Respiratory: Clear to auscultation bilaterally, Normal air movement Cardiovascular: Regular rate/rhythm, Normal S1 S2, No murmurs Gastrointestinal: Normal bowel sounds, Soft and benign, Non-distended, Tenderness Musculoskeletal: No clubbing, No swelling, No tenderness Neurological: Sensation intact, Cranial nerves 3-12 intact - Studies Medications List Reviewed: Yes Assessment & Plan - Problems (Diagnosis) (1) Tachyarrhythmia Current Visit: Yes Status: Acute (2) Hypotension Current Visit: Yes Status: Acute (3) Mass of adrenal gland Current Visit: Yes Status: Acute (4) Anemia Current Visit: Yes Status: Acute (5) Chronic malnutrition Current Visit: Yes Status: Acute (6) HTN (hypertension) Current Visit: Yes Status: Acute (7) Nausea & vomiting Current Visit: Yes Status: Acute (8) Dehydration Current Visit: No Status: Acute (9) Lactic acid acidosis Current Visit: Yes Status: Acute (10) Hypoalbuminemia Current Visit: Yes Status: Acute (11) Hematuria Current Visit: Yes Status: Acute - Plan PLAN: 1. CONTINUE WITH IV HYDRATION; ADVANCE DIET TOLERATED 2. ECHOCARDIOGRAM RESULTS ARE PENDING 3. THYROID STUDIES ARE PENDING 4. CONTINUE WITH ANTIBIOTIC THERAPY 5. MONITOR HEMODYNAMICS CLOSELY 6. WORKUP FOR ADRENAL MASS PENDING; 24 HR URINE PENDING 7. COVID TESTING WAS POSITIVE 8. AWAITING FOR PLACEMENT AT DETENTION FACILITY 9. SEVERELY MALNOURISHED AND DEBILITATED. NEED TO ENCOURAGE PHYSICAL THERAPY WELL P.O. INTAKE 10. GI AND DVT PROPHYLAXIS Discharge Plan: Home Plan to discharge in: Greater than 2 days - Advance Directives Does patient have a Living Will: No Does patient have a Durable POA for Healthcare: No - Code Status/Comfort Care Code Status Assessed: Yes Code Status: Full Code Physician Review: Patient Assessed, Agree with Above Assessment and Plan Critical Care: No Time Spent Managing PTS Care (In Minutes): 35
--- NOTE | 2020-03-05 07:15 | P.PN ---
Subjective Date of Service: 03/05/20 PATIENT IS SEVERELY ANEMIC. PATIENT'S HAS BEEN WEAK AND DEBILITATED. SHE HAS BEEN IMPROVING AFTER WE HAVE BEEN HYDRATING HER AGGRESSIVELY. HER HEART RATE HAS COME DOWN. URINE OUTPUT HAS PICKED UP. SHE IS SEVERELY HYPOALBUMINEMIC SO WE NEED TO MONITOR THAT SHE DOES NOT GET EDEMATOUS. CONTINUE ENCOURAGING DIET. REPEAT COVID-19 WAS NEGATIVE. AWAITING [facility] FACILITY PLACEMENT. SHE WILL BE FURTHER WORKED WITH ONCOLOGY FOR BILATERAL ADRENAL MASSES, WHICH HOPEFULLY ARE BENIGN. Review of Systems 10-point ROS is otherwise unremarkable Physical Examination - Vital Signs Temperature: 98.4 F Blood Pressure: 104/58 Pulse: 93 Respirations: 20 Pulse Ox (%): 95 - Physical Exam General: Alert, In no apparent distress, Oriented x3 Respiratory: Clear to auscultation bilaterally, Normal air movement Cardiovascular: Regular rate/rhythm, Normal S1 S2, No murmurs Gastrointestinal: Normal bowel sounds, Soft and benign, Non-distended, Tenderness (MILD) Musculoskeletal: No clubbing, No swelling, No tenderness Neurological: Sensation intact, Cranial nerves 3-12 intact - Studies Medications List Reviewed: Yes Assessment & Plan - Problems (Diagnosis) (1) Anemia Current Visit: Yes Status: Acute Qualifiers: Anemia type: iron deficiency Iron deficiency 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 TRANSFUSE 2 UNITS OF PACKED RED BLOOD CELLS; CONTINUE WITH IV HYDRATION; ADVANCE DIET TOLERATED 2. ECHOCARDIOGRAM RESULTS ARE PENDING 3. THYROID STUDIES ARE WNL 4. CONTINUE WITH ANTIBIOTIC THERAPY-ROCEPHIN 5. MONITOR HEMODYNAMICS CLOSELY 6. WORKUP FOR ADRENAL MASS PENDING; 24 HR URINE PENDING; ONCOLOGY FOLLOW-UP 7. COVID TESTING WAS NEGATIVE 8. AWAITING FOR PLACEMENT AT [facility] FACILITY 9. SEVERELY MALNOURISHED AND DEBILITATED. NEED TO ENCOURAGE PHYSICAL THERAPY WELL P.O. INTAKE 10. GI AND DVT PROPHYLAXIS Discharge Plan: Detention Plan to discharge in: Greater than 2 days - Advance Directives Does patient have a Living Will: No Does patient have a Durable POA for Healthcare: No - Code Status/Comfort Care Code Status: Full Code Physician Review: Patient Assessed, Agree with Above Assessment and Plan Critical Care: No Time Spent Managing PTS Care (In Minutes): 35
[2020-03-05] MEDS: METOCLOPRAMIDE 5 MG TAB PO SCH ×4 (07:41→21:24)
[2020-03-05] MEDS: ENOXAPARIN 40 MG/0.4 ML SQ SCH (07:43)
[2020-03-05] MEDS ORDERED: HYDROCORTISONE SUC 100 MG INJ IV ONE (08:00)
[2020-03-05] MEDS: VITAMIN D 5,000 UNIT CAP PO SCH (08:07)
[2020-03-05] MEDS: CEFTRIAXONE/SWI 1gm 1 GM/10 ML SYR IV SCH (08:07)
[2020-03-05] MEDS: CALCITROL 0.25 MCG CAP PO SCH (08:07)
[2020-03-05] MEDS: DOCUSATE NA 100 MG CAP PO SCH ×2 (08:07→21:20)
[2020-03-05] MEDS: CYANOCOBALAMIN 1,000 MCG TAB SL SCH (08:08)
[2020-03-05] MEDS: PROMOD 30 ML DOSE PO SCH ×2 (08:08→21:25)
[2020-03-05] MEDS: SIMETHICONE 80 MG TAB PO SCH ×3 (08:08→21:23)
[2020-03-05] MEDS: ENSURE HIGH PROTEIN 237 ML CAN PO SCH ×2 (08:09→21:25)
[2020-03-05] MEDS ORDERED: NA CHLORIDE 0.9% 100 ML ONE (10:21)
--- NOTE | 2020-03-05 16:22 | P.PN ---
Subjective Date of Service: 03/05/20 Chief Complaint: N/V, diarrhea, SISI>general abdominal pain, anemia, hgb 8.9,Dehydration, UTI Subjective: Improving, Doing well Physical Examination - Vital Signs Temperature: 97.9 F Blood Pressure: 118/68 Pulse: 93 Respirations: 25 Pulse Ox (%): 96 - Physical Exam General: Alert, In no apparent distress HEENT: Atraumatic Neck: Supple Respiratory: Clear to auscultation bilaterally Cardiovascular: No edema Gastrointestinal: Normal bowel sounds Integumentary: No rashes - Studies Medications List Reviewed: Yes Assessment And Plan Physician Review Additional Text: Assessment 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 Acute Gastritis improving Persistent Nausea, vomiting and diarrhea Muscle wasting and severe protein malnutrition UTI ARF improving Large bilateral adrenal masses, left adrenal mass 4.9 cm, right adrenal mass 3.9 cm with noted retroperitoneal adenopathy -possible neoplastic in nature vs likely incidental so far seems non functional Hyperbilirubinemia Hyponatremia and hypokalemia stable Acute anemia with noted B12 deficiency getting 2 units of PRBC Plan: Large bilateral adrenal masses, left adrenal mass 4.9 cm, right adrenal mass 3.9 cm with noted retroperitoneal adenopathy -s/p prior d/w oncology. Still need to rule out metastatic disease. CT chest shows right small nodule to the upper lobe. CT brain negative. -will obtain MRI abdomen as outpt for hounsfield unit and possibility of malignancy although less likely since b/l lesions and no clinical signs of hyperfunctional adrenal glands -Per Radiology, unable to do biopsy based on CT abdomen. no further workup at this time seems non functional at this time Hyperbilirubinemia: Continue IV fluids. MRCP unremarkable. Hyponatremia and hypokalemia related to above: resolved monitor for now Patchy gastritis with nausea and vomiting: c/w PPI Acute anemia with noted B12 deficiency, etiology unknown: Patient with gastritis. Continue Protonix. Monitor closely. Will replace electrolytes and B12.
[2020-03-05] MEDS ORDERED: FUROSEMIDE 20 MG/ 2ML VIAL IV ONE (17:00)
[2020-03-05 18:36] LABS: Hematocrit 32.3 % (36.0-45.0)
[2020-03-06] MEDS: PANTOPRAZOLE 40MG TABLET PO SCH (06:37)
[2020-03-06 06:38] LABS: Albumin 1.8 g/dL (3.4-5.0); Bilirubin Total 0.8 mg/dL (0.2-1.0); Magnesium 1.9 mg/dL (1.8-2.4); Phosphorus 2.6 mg/dL (2.5-4.9); Potassium 3.9 mmol/L (3.5-5.1); Protein, Total 4.9 g/dL (6.4-8.2)
[2020-03-06 06:41] LABS: Absolute Lymphocytes (CBC) 0.5 K/uL (0.7-4.9); Basophils % 1.1 % (0-1.3); Hematocrit 28.6 % (36.0-45.0); Lymphocytes % 19.5 % (15.3-44.8); MPV 10.3 fL (7.6-11.3); RBC Red Blood Cell Count 3.38 M/uL (3.86-4.86)
[2020-03-06 07:04] LABS: Protime INR 1.07
--- NOTE | 2020-03-06 07:47 | RAD REPORT ---
EXAM DESCRIPTION: Emilie Single View03/06/2020 6:07 am CLINICAL HISTORY: Cough COMPARISON: February 28, 2020 FINDINGS: Moderate left pleural effusion. Left basilar opacity may represent atelectasis or a combin ation of atelectasis and pneumonia The right lung appears clear of acute infiltrate. The heart is normal size
--- NOTE | 2020-03-06 08:26 | ECHO ---
HEIGHT: 6 ft 1 in WEIGHT: 153 lb 14.4 oz DATE OF STUDY: 03/05/[address]: Deng Alex MD 2-DIMENSIONAL: YES M.MODE: YES DOPPLER: YES COLOR FLOW: YES TDS: YES PORTABLE: YES DEFINITY: NO BUBBLE STUDY: NO DIAGNOSIS: TACHYCARDIA CARDIAC HISTORY: CATHERIZATION: NO SURGERY: NO PROSTHETIC VALVE: NO PACEMAKER: NO MEASUREMENTS (cm) DIASTOLIC (NORMALS) SYSTOLIC (NORMALS) IVSd 0.9 (0.6-1.2) LA Diam 2.9 (1.9-4.0) LVEF 74% LVIDd 3.1 (3.5-5.7) LVIDs 1.8 (2.0-3.5) %FS 41% LVPWd 0.9 (0.6-1.2) Ao Diam 2.6 (2.0-3.7) 2 DIMENSIONAL ASSESSMENT: RIGHT ATRIUM: NORMAL LEFT ATRIUM: NORMAL RIGHT VENTRICLE: NORMAL LEFT VENTRICLE: NORMAL TRICUSPID VALVE: NORMAL MITRAL VALVE: NORMAL PULMONIC VALVE: NORMAL AORTIC VALVE: NORMAL PERICARDIAL EFFUSION: NONE AORTIC ROOT: NORMAL LEFT VENTRICULAR WALL MOTION: NORMAL DOPPLER/COLOR FLOW: MILD TRICUSPID REGURGITATION. COMMENTS: NORMAL LEFT VENTRICULAR SIZE AND FUNCTION. NO WALL MOTION ABNORMALITY. MILD TRICUSPID REGURGITATION. NO EFFUSION. TECHNICALLY DIFFICULT STUDY. TECHNOLOGIST: Soledad ROSENBAUM
[2020-03-06] MEDS: ENSURE HIGH PROTEIN 237 ML CAN PO SCH ×2 (09:00→20:31)
[2020-03-06] MEDS ORDERED: CEFTRIAXONE 1000 MG/VIAL IM SCH (09:00)
[2020-03-06] MEDS: PROMOD 30 ML DOSE PO SCH ×3 (09:00→21:00)
[2020-03-06] MEDS: HYDROCORTISONE SUC 100 MG INJ IV SCH ×2 (09:00→09:24)
[2020-03-06] MEDS: CALCITROL 0.25 MCG CAP PO SCH (09:20)
[2020-03-06] MEDS: CYANOCOBALAMIN 1,000 MCG TAB SL SCH (09:20)
[2020-03-06] MEDS: SIMETHICONE 80 MG TAB PO SCH ×3 (09:20→20:32)
[2020-03-06] MEDS: VITAMIN D 5,000 UNIT CAP PO SCH (09:20)
[2020-03-06] MEDS: METOCLOPRAMIDE 5 MG TAB PO SCH ×4 (09:21→20:32)
[2020-03-06] MEDS: ENOXAPARIN 40 MG/0.4 ML SQ SCH (09:21)
[2020-03-06] MEDS: DOCUSATE NA 100 MG CAP PO SCH ×2 (09:21→20:32)
[2020-03-06] MEDS ORDERED: ONDANSETRON 4 MG (ODT) TAB PO PRN (09:49)
[2020-03-06] MEDS ORDERED: POTASSIUM 25 MEQ EFFERV TAB PO ONE (11:54)
--- NOTE | 2020-03-06 20:51 | P.PN ---
Date of Service: 03/04/20 Vital Signs Temp Pulse Resp BP Pulse Ox 99.5 F 108 H 24 H 130/66 95 03/06/20 20:00 03/06/20 20:00 03/06/20 20:00 03/06/20 20:00 03/06/20 20:00 Medications Acetaminophen (Tylenol -Extra Strength) 500 mg PO Q4HP PRN PRN Reason: TEMP > 100' F Stop: 03/27/20 21:19 Last Admin: 03/05/20 03:07 Dose: 500 mg Documented by: Calcitriol (Rocaltrol) 0.5 mcg PO DAILY SUJEY Stop: 03/29/20 09:01 Last Admin: 03/06/20 09:20 Dose: 0.5 mcg Documented by: Cholecalciferol (Vitamin D 5,000 Iu Cap) 5,000 unit PO DAILY SUJEY Stop: 03/29/20 09:01 Last Admin: 03/06/20 09:20 Dose: 5,000 unit Documented by: Cyanocobalamin (Vitamin B-12) 1,000 mcg SL DAILY SUJEY Stop: 04/03/20 09:01 Last Admin: 03/06/20 09:20 Dose: 1,000 mcg Documented by: Docusate Sodium (Colace Cap) 100 mg PO BID SUJEY Stop: 03/29/20 09:01 Last Admin: 03/06/20 20:32 Dose: 100 mg Documented by: Enoxaparin Sodium (Lovenox 40 Mg Inj) 40 mg SQ DAILY SUJEY Stop: 03/28/20 09:01 Last Admin: 03/06/20 09:21 Dose: 40 mg Documented by: Sodium Chloride (Ns 1000 Ml Ivbag) 1,000 mls @ 75 mls/hr IV .[id number] SUJEY Stop: 04/04/20 08:01 Last Admin: 03/05/20 21:20 Dose: Not Given Documented by: Metoclopramide HCl (Reglan) 5 mg PO ACHS SUJEY Stop: 04/01/20 11:31 Last Admin: 03/06/20 20:32 Dose: 5 mg Documented by: Nutritional Formula (Promod Liquid Protein) 30 ml PO BID SUJEY Stop: 04/02/20 09:01 Last Admin: 03/06/20 20:31 Dose: 30 ml Documented by: Nutritional Formula (Ensure High Protein) 237 ml PO TID SUJEY Stop: 04/05/20 21:01 Last Admin: 03/06/20 20:31 Dose: 237 ml Documented by: Ondansetron HCl (Zofran) 4 mg IV Q4HP PRN PRN Reason: NAUSEA / VOMITING Stop: 03/27/20 21:19 Last Admin: 03/04/20 05:12 Dose: 4 mg Documented by: Ondansetron HCl (Zofran) 4 mg PO Q4H PRN PRN Reason: NAUSEA / VOMITING Stop: 04/05/20 09:50 Last Admin: 03/06/20 10:32 Dose: 4 mg Documented by: Pantoprazole Sodium (Protonix Tab) 40 mg PO DAILYAC [facility]; Protocol Stop: 04/05/20 06:31 Last Admin: 03/06/20 06:37 Dose: 40 mg Documented by: Simethicone (Mylicon Tab) 80 mg PO TID [facility] Stop: 03/31/20 14:01 Last Admin: 03/06/20 20:32 Dose: 80 mg Documented by: Sodium Chloride (Normal Saline Flush) 10 ml IV BID [facility] Stop: 03/28/20 09:01 Last Admin: 03/06/20 20:32 Dose: 10 ml Documented by: Sodium Chloride (Sodium Chloride 10 Ml Inj) 10 ml IV UD PRN PRN Reason: Diluant Stop: 03/29/20 10:43 Last Admin: 03/03/20 07:44 Dose: 10 ml Documented by: Sterile Water (Sterile Water For Inj (10 Ml Vial)) 2 ml IV UD [facility] Stop: 04/03/20 09:01 Last Admin: 03/04/20 08:57 Dose: 2 ml Documented by: Microbiology Results 02/27/20 07:59 Blood - Blood Aerobic Blood Culture - Final No growth in 5 days. 02/27/20 07:59 Blood - Blood Anaerobic Blood Culture - Final 02/26/20 19:55 Clean Catch Urine Drexel Count - Final 02/26/20 19:55 Clean Catch Urine - Final No growth. 02/27/20 07:54 Blood - Blood Aerobic Blood Culture - Final 02/27/20 07:54 Blood - Blood Blood Culture Gram Stain - Final 02/27/20 07:54 Blood - Blood Anaerobic Blood Culture - Final 02/26/20 22:45 Nasopharnyx Coronavirus COVID-19 PCR - Final 02/26/20 17:00 Nasopharnyx Influenza Type A Antigen Screen - Final 02/26/20 17:00 Nasopharnyx Influenza Type B Antigen Screen - Final Assessment/ Plan: Nephrology CPS stable without CP or SOB. Fatigue and weakness. No acute events overnight. Vitals, medications, blood work and imaging reviewed in the chart. NAD. MMM. Neck supple. CTA. RRR. Soft Abd. No C/C/E. No rash. AAO. Normal Speech. Laboratory Data (last 24 hrs) 02/26/20 17:00: WBC 7.2, Hgb 12.4, Hct 36.7, Plt Count 250 02/26/20 17:00: Sodium 135 L, Potassium 3.4 L, BUN 25 H, Creatinine 1.51 H, Glucose 121 H, Total Bilirubin 2.4 H, AST 30, ALT 16, Alkaline Phosphatase 70, Lipase 309 Conclusions/Impression: A/ KING, improving Hyponatremia Hypokalemia Acidosis Hypocalcemia Moderate malnutrition Anemia in chronic illness BL Adrenal Masses P/ Continue current POC and Medications. Agree with the functional evaluation of the adrenal masses including the 24 hour urine; results pending. IVF prn. Give IV Albumin prn for hypotension. Replete potassium prn. Encourage nutrition. Transfuse PRBC PRN. No NSAIDs. AM Labs. Daily weight.
--- NOTE | 2020-03-06 20:52 | P.PN ---
Date of Service: 03/06/20 Vital Signs Temp Pulse Resp BP Pulse Ox 99.5 F 108 H 24 H 130/66 95 03/06/20 20:00 03/06/20 20:00 03/06/20 20:00 03/06/20 20:00 03/06/20 20:00 Medications Acetaminophen (Tylenol -Extra Strength) 500 mg PO Q4HP PRN PRN Reason: TEMP > 100' F Stop: 03/27/20 21:19 Last Admin: 03/05/20 03:07 Dose: 500 mg Documented by: Calcitriol (Rocaltrol) 0.5 mcg PO DAILY SUJEY Stop: 03/29/20 09:01 Last Admin: 03/06/20 09:20 Dose: 0.5 mcg Documented by: Cholecalciferol (Vitamin D 5,000 Iu Cap) 5,000 unit PO DAILY SUJEY Stop: 03/29/20 09:01 Last Admin: 03/06/20 09:20 Dose: 5,000 unit Documented by: Cyanocobalamin (Vitamin B-12) 1,000 mcg SL DAILY SUJEY Stop: 04/03/20 09:01 Last Admin: 03/06/20 09:20 Dose: 1,000 mcg Documented by: Docusate Sodium (Colace Cap) 100 mg PO BID SUJEY Stop: 03/29/20 09:01 Last Admin: 03/06/20 20:32 Dose: 100 mg Documented by: Enoxaparin Sodium (Lovenox 40 Mg Inj) 40 mg SQ DAILY SUJEY Stop: 03/28/20 09:01 Last Admin: 03/06/20 09:21 Dose: 40 mg Documented by: Sodium Chloride (Ns 1000 Ml Ivbag) 1,000 mls @ 75 mls/hr IV .[id number] SUJEY Stop: 04/04/20 08:01 Last Admin: 03/05/20 21:20 Dose: Not Given Documented by: Metoclopramide HCl (Reglan) 5 mg PO ACHS SUJEY Stop: 04/01/20 11:31 Last Admin: 03/06/20 20:32 Dose: 5 mg Documented by: Nutritional Formula (Promod Liquid Protein) 30 ml PO BID SUJEY Stop: 04/02/20 09:01 Last Admin: 03/06/20 20:31 Dose: 30 ml Documented by: Nutritional Formula (Ensure High Protein) 237 ml PO TID SUJEY Stop: 04/05/20 21:01 Last Admin: 03/06/20 20:31 Dose: 237 ml Documented by: Ondansetron HCl (Zofran) 4 mg IV Q4HP PRN PRN Reason: NAUSEA / VOMITING Stop: 03/27/20 21:19 Last Admin: 03/04/20 05:12 Dose: 4 mg Documented by: Ondansetron HCl (Zofran) 4 mg PO Q4H PRN PRN Reason: NAUSEA / VOMITING Stop: 04/05/20 09:50 Last Admin: 03/06/20 10:32 Dose: 4 mg Documented by: Pantoprazole Sodium (Protonix Tab) 40 mg PO DAILYAC [facility]; Protocol Stop: 04/05/20 06:31 Last Admin: 03/06/20 06:37 Dose: 40 mg Documented by: Simethicone (Mylicon Tab) 80 mg PO TID [facility] Stop: 03/31/20 14:01 Last Admin: 03/06/20 20:32 Dose: 80 mg Documented by: Sodium Chloride (Normal Saline Flush) 10 ml IV BID [facility] Stop: 03/28/20 09:01 Last Admin: 03/06/20 20:32 Dose: 10 ml Documented by: Sodium Chloride (Sodium Chloride 10 Ml Inj) 10 ml IV UD PRN PRN Reason: Diluant Stop: 03/29/20 10:43 Last Admin: 03/03/20 07:44 Dose: 10 ml Documented by: Sterile Water (Sterile Water For Inj (10 Ml Vial)) 2 ml IV UD [facility] Stop: 04/03/20 09:01 Last Admin: 03/04/20 08:57 Dose: 2 ml Documented by: Microbiology Results 02/27/20 07:59 Blood - Blood Aerobic Blood Culture - Final No growth in 5 days. 02/27/20 07:59 Blood - Blood Anaerobic Blood Culture - Final 02/26/20 19:55 Clean Catch Urine Lawrence Count - Final 02/26/20 19:55 Clean Catch Urine - Final No growth. 02/27/20 07:54 Blood - Blood Aerobic Blood Culture - Final 02/27/20 07:54 Blood - Blood Blood Culture Gram Stain - Final 02/27/20 07:54 Blood - Blood Anaerobic Blood Culture - Final 02/26/20 22:45 Nasopharnyx Coronavirus COVID-19 PCR - Final 02/26/20 17:00 Nasopharnyx Influenza Type A Antigen Screen - Final 02/26/20 17:00 Nasopharnyx Influenza Type B Antigen Screen - Final Assessment/ Plan: Nephrology CPS stable without CP or SOB. Fatigue and weakness. No acute events overnight. Vitals, medications, blood work and imaging reviewed in the chart. NAD. MMM. Neck supple. CTA. RRR. Soft Abd. No C/C/E. No rash. AAO. Normal Speech. Laboratory Data (last 24 hrs) 02/26/20 17:00: WBC 7.2, Hgb 12.4, Hct 36.7, Plt Count 250 02/26/20 17:00: Sodium 135 L, Potassium 3.4 L, BUN 25 H, Creatinine 1.51 H, Glucose 121 H, Total Bilirubin 2.4 H, AST 30, ALT 16, Alkaline Phosphatase 70, Lipase 309 Conclusions/Impression: A/ KING, improving Hyponatremia Hypokalemia Acidosis Hypocalcemia Moderate malnutrition Anemia in chronic illness BL Adrenal Masses P/ Continue current POC and Medications. Agree with the functional evaluation of the adrenal masses including the 24 hour urine; results pending. IVF prn. Give IV Albumin prn for hypotension. Replete potassium prn. Encourage nutrition. Transfuse PRBC PRN. No NSAIDs. AM Labs. Daily weight.
[2020-03-06] MEDS: NA CHLORIDE 0.9% 1,000 ML IV SCH (21:59)
[2020-03-07] MEDS: ACETAMINOPHEN 500 MG TAB PO PRN (04:24)
[2020-03-07] MEDS: PANTOPRAZOLE 40MG TABLET PO SCH (05:23)
[2020-03-07] MEDS: CALCITROL 0.25 MCG CAP PO SCH (08:44)
[2020-03-07] MEDS: VITAMIN D 5,000 UNIT CAP PO SCH (08:44)
[2020-03-07] MEDS: METOCLOPRAMIDE 5 MG TAB PO SCH ×4 (08:44→22:12)
[2020-03-07] MEDS: PROMOD 30 ML DOSE PO SCH ×2 (08:45→20:59)
[2020-03-07] MEDS: SIMETHICONE 80 MG TAB PO SCH ×3 (08:45→22:12)
[2020-03-07] MEDS: ENSURE HIGH PROTEIN 237 ML CAN PO SCH ×4 (08:45→20:59)
[2020-03-07] MEDS: DOCUSATE NA 100 MG CAP PO SCH ×2 (08:45→20:59)
[2020-03-07] MEDS: CYANOCOBALAMIN 1,000 MCG TAB SL SCH (08:45)
[2020-03-07] MEDS: NA CHLORIDE 0.9% 1,000 ML IV SCH (08:50)
[2020-03-07] MEDS ORDERED: POTASSIUM CL SA 10 MEQ TAB PO ONE (09:00)
[2020-03-07] MEDS ORDERED: HYDROCORTISONE SUC 100 MG INJ IV ONE (10:01)
[2020-03-07 13:57] LABS: Ur Total Volume (Vanillylmande 925 mL/24 h
[2020-03-07] MEDS ORDERED: ALBUMIN HUMAN 25% 100 ML IV ONE (14:10)
[2020-03-07] MEDS ORDERED: ALPRAZOLAM 0.25 MG TABLET PO ONE (14:13)
[2020-03-07] MEDS: METOPROLOL TAR 25 MG TAB PO SCH (17:23)
--- NOTE | 2020-03-07 20:17 | RAD REPORT ---
EXAM DESCRIPTION: MRI - Abdomen WWo Cont - 03/07/2020 7:40 pm CLINICAL HISTORY: Adrenal mass COMPARISON: February 26, 2020 cat scan TECHNIQUE: Axial and coronal magnetic resonance imaging of the abdomen obtained. 20 cc MultiHance ad ministered intravenously FINDINGS: 9.1 centimeter bilateral adrenal masses. These are unchanged from the prior CAT scan. The masses have low to intermediate signal on T2 weighted sequences. The masses enhance. Out of phase gra dient echo images do not demonstrate drop off in signal. Celiac axis, portacaval and periaortic/caval lymphadenopathy is present. Kidneys demonstrate multiple, bilateral small enhancing lesions. IMPRESSION: Bilateral 9.1 centimeter adrenal masses. These do not have MRI characteristics of adenom as. These have developed since 2018. 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 Neoplasm is another consideration
[2020-03-07] MEDS: predniSONE 20 MG TAB PO SCH (20:59)
[2020-03-07] MEDS ORDERED: METOCLOPRAMIDE 5 MG TAB ONE (22:20)
[2020-03-08 05:14] LABS: Magnesium 1.9 mg/dL (1.8-2.4); Potassium 4.4 mmol/L (3.5-5.1)
[2020-03-08] MEDS: METOPROLOL TAR 25 MG TAB PO SCH ×2 (05:20→17:33)
[2020-03-08] MEDS: METOCLOPRAMIDE 5 MG TAB PO SCH ×2 (05:21→11:30)
[2020-03-08] MEDS: PANTOPRAZOLE 40MG TABLET PO SCH (05:21)
[2020-03-08] MEDS: PROMOD 30 ML DOSE PO SCH ×2 (09:00→19:37)
[2020-03-08] MEDS: ENSURE HIGH PROTEIN 237 ML CAN PO SCH ×3 (09:00→19:37)
[2020-03-08] MEDS: predniSONE 20 MG TAB PO SCH ×2 (09:49→19:37)
[2020-03-08] MEDS: VITAMIN D 5,000 UNIT CAP PO SCH (09:49)
[2020-03-08] MEDS: CALCITROL 0.25 MCG CAP PO SCH (09:49)
[2020-03-08] MEDS: DOCUSATE NA 100 MG CAP PO SCH ×2 (09:49→19:37)
[2020-03-08] MEDS: ENOXAPARIN 40 MG/0.4 ML SQ SCH (09:55)
[2020-03-08] MEDS: CYANOCOBALAMIN 1,000 MCG TAB SL SCH (10:06)
[2020-03-08] MEDS: SIMETHICONE 80 MG TAB PO SCH ×2 (10:06→14:30)
--- NOTE | 2020-03-08 10:14 | P.PN ---
Subjective Date of Service: 03/06/20 Patient was transfused 2 units of packed red blood cells. Her repeat COVID-19 came back negative. Patient is still feeling weak and today she is nauseated. She had a couple of good days on Tuesday and Tuesday and now she is feeling poorly. Will need to continue monitoring her closely on IV hydration. Review of Systems 10-point ROS is otherwise unremarkable Physical Examination - Vital Signs Temperature: 97.4 F Blood Pressure: 91/58 Pulse: 98 Respirations: 26 Pulse Ox (%): 92 - Physical Exam General: Alert, In no apparent distress, Oriented x3 Respiratory: Clear to auscultation bilaterally, Normal air movement Cardiovascular: Regular rate/rhythm, Normal S1 S2 Gastrointestinal: Normal bowel sounds, Soft and benign, Non-distended, No tenderness Musculoskeletal: No clubbing, No swelling, No tenderness Neurological: Normal strength at 5/5 x4 extr, Normal tone, Sensation intact, Cranial nerves 3-12 intact - Studies Medications List Reviewed: Yes Assessment & Plan - Problems (Diagnosis) (1) Anemia Current Visit: Yes Status: Acute Qualifiers: Anemia type: iron deficiency Iron deficiency 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 Patient's hemoglobin is stable 2. Echocardiogram without any abnormalities 3. Continuing with physical therapy 4. Continue with antibiotic therapy 5. Monitor hemodynamics closely 6. MRI of the adrenal glands pending 7. Awaiting placement of a alf facility 8. GI AND DVT PROPHYLAXIS Discharge Plan: Home Plan to discharge in: Greater than 2 days - Advance Directives Does patient have a Living Will: No Does patient have a Durable POA for Healthcare: No - Code Status/Comfort Care Code Status: Full Code Physician Review: Patient Assessed, Agree with Above Assessment and Plan Critical Care: No Time Spent Managing PTS Care (In Minutes): 35
--- NOTE | 2020-03-08 10:21 | P.PN ---
Subjective Date of Service: 03/07/20 Patient's labs showed she was COVID-19 positive. She is feeling better today. She is eating better. Her strength is improving. MRI pending. Review of Systems 10-point ROS is otherwise unremarkable Physical Examination - Vital Signs Temperature: 97.4 F Blood Pressure: 91/58 Pulse: 98 Respirations: 26 Pulse Ox (%): 92 - Physical Exam General: Alert, In no apparent distress, Oriented x3 Respiratory: Clear to auscultation bilaterally, Normal air movement Cardiovascular: Regular rate/rhythm, Normal S1 S2 Gastrointestinal: Normal bowel sounds, Soft and benign, Non-distended, No tenderness Musculoskeletal: No clubbing, No swelling, No tenderness Neurological: Sensation intact, Cranial nerves 3-12 intact - Studies Medications List Reviewed: Yes Assessment & Plan - Problems (Diagnosis) (1) Anemia Current Visit: Yes Status: Acute Qualifiers: Anemia type: iron deficiency Iron deficiency anemia type: chronic blood loss Qualified Code(s): D50.0 - Iron deficiency anemia secondary to blood loss (chronic) (2) Tachyarrhythmia Current Visit: Yes Status: Acute (3) Hypotension Current Visit: Yes Status: Acute (4) Mass of adrenal gland Current Visit: Yes Status: Acute (5) Chronic malnutrition Current Visit: Yes Status: Acute (6) HTN (hypertension) Current Visit: Yes Status: Acute (7) Nausea & vomiting Current Visit: Yes Status: Acute (8) Dehydration Current Visit: No Status: Acute (9) Lactic acid acidosis Current Visit: Yes Status: Acute (10) Hypoalbuminemia Current Visit: Yes Status: Acute (11) Hematuria Current Visit: Yes Status: Acute (12) Intra-abdominal lymphadenopathy Current Visit: Yes Status: Acute - Plan PLAN: 1. Will repeat labs in the morning. Clinically patient is feeling better today. 2. MRI of the adrenal glands pending. Medical Oncology and Radiology and the plan of care would be to do an MRI to see if these were characteristics of adenomas. Biopsy pending results of MRI. 3. Continuing with physical therapy 4. Continue with antibiotic therapy; may Dc in the next 24-48 hr 5. Monitor hemodynamics closely 6. Awaiting placement of a detention facility-this may be complicated since patient is COVID-19 positive. Discharge Plan: Home Plan to discharge in: Greater than 2 days - Advance Directives Does patient have a Living Will: No Does patient have a Durable POA for Healthcare: No - Code Status/Comfort Care Code Status: Full Code Physician Review: Patient Assessed, Agree with Above Assessment and Plan Critical Care: No Time Spent Managing PTS Care (In Minutes): 35
--- NOTE | 2020-03-08 10:23 | P.PN ---
Subjective Date of Service: 03/08/20 Patient is clinically feeling better. She does get tachycardic whenever she moves around. MRI of adrenal glands revealed multiple lymphadenopathy and characteristics that were not typical of adenoma. However, malignancy cannot be ruled out. Will speak with Radiology about possible biopsy. Review of Systems 10-point ROS is otherwise unremarkable Physical Examination - Vital Signs Temperature: 97.4 F Blood Pressure: 91/58 Pulse: 98 Respirations: 26 Pulse Ox (%): 92 - Physical Exam General: Alert, In no apparent distress, Oriented x3, Cachectic Respiratory: Clear to auscultation bilaterally, Normal air movement, Crackles/rales (at left base) Cardiovascular: Regular rate/rhythm, Normal S1 S2 Gastrointestinal: Normal bowel sounds, Soft and benign, Non-distended, No tenderness Musculoskeletal: No clubbing, No swelling, No tenderness Neurological: Normal speech, Sensation intact, Cranial nerves 3-12 intact, Abnormal gait, Abnormal strength - Studies Medications List Reviewed: Yes Assessment & Plan - Problems (Diagnosis) (1) Anemia Current Visit: Yes Status: Acute Qualifiers: Anemia type: iron deficiency Iron deficiency anemia type: chronic blood loss Qualified Code(s): D50.0 - Iron deficiency anemia secondary to blood loss (chronic) (2) Tachyarrhythmia Current Visit: Yes Status: Acute (3) Hypotension Current Visit: Yes Status: Acute (4) Mass of adrenal gland Current Visit: Yes Status: Acute (5) Chronic malnutrition Current Visit: Yes Status: Acute (6) HTN (hypertension) Current Visit: Yes Status: Acute (7) Nausea & vomiting Current Visit: Yes Status: Acute (8) Dehydration Current Visit: No Status: Acute (9) Lactic acid acidosis Current Visit: Yes Status: Acute (10) Hypoalbuminemia Current Visit: Yes Status: Acute (11) Hematuria Current Visit: Yes Status: Acute (12) Intra-abdominal lymphadenopathy Current Visit: Yes Status: Acute - Plan PLAN: 1. Clinically patient is feeling better today. Tolerating diet. Wean down steroids. May monitor inflammatory markers as well. Encourage physical activity 2. MRI of the adrenal glands did not reveal characteristics seen in adenomas. But this could not be ruled out. Patient also with intra-abdominal adenopathy. Will discuss with Radiology about biopsy. 3. Continuing with physical therapy 4. Continue with antibiotic therapy; may Dc in the next 24-48 hr 5. Monitor hemodynamics closely 6. Awaiting placement of a [facility] facility-this may be complicated since patient is COVID-19 positive. Discharge Plan: Care Home Plan to discharge in: Greater than 2 days - Advance Directives Does patient have a Living Will: No Does patient have a Durable POA for Healthcare: No - Code Status/Comfort Care Code Status: Full Code Physician Review: Patient Assessed, Agree with Above Assessment and Plan Critical Care: No Time Spent Managing PTS Care (In Minutes): 35
[2020-03-08 12:23] LABS: Absolute Lymphocytes (CBC) 0.5 K/uL (0.7-4.9); Basophils % 0.7 % (0-1.3); Hematocrit 27.8 % (36.0-45.0); MPV 10.4 fL (7.6-11.3); RBC Red Blood Cell Count 3.25 M/uL (3.86-4.86)
[2020-03-08 15:06] LABS: Platelet Estimate DECR
[2020-03-08 15:09] LABS: Blood Morphology Comment NOT SEEN (NOT SEEN)
[2020-03-08] MEDS: ONDANSETRON 4 MG/2 ML VIAL IV PRN (22:30)
[2020-03-09] MEDS: METOPROLOL TAR 25 MG TAB PO SCH ×2 (05:46→17:52)
[2020-03-09] MEDS: PANTOPRAZOLE 40MG TABLET PO SCH (05:46)
[2020-03-09] MEDS: ENSURE HIGH PROTEIN 237 ML CAN PO SCH ×3 (09:00→20:09)
[2020-03-09] MEDS: PROMOD 30 ML DOSE PO SCH ×2 (09:00→20:09)
[2020-03-09] MEDS: predniSONE 20 MG TAB PO SCH ×2 (09:46→20:09)
[2020-03-09] MEDS: CALCITROL 0.25 MCG CAP PO SCH (09:46)
[2020-03-09] MEDS: VITAMIN D 5,000 UNIT CAP PO SCH (09:46)
[2020-03-09] MEDS: DOCUSATE NA 100 MG CAP PO SCH ×2 (09:46→20:09)
[2020-03-09] MEDS: ENOXAPARIN 40 MG/0.4 ML SQ SCH (09:47)
[2020-03-09] MEDS: CYANOCOBALAMIN 1,000 MCG TAB SL SCH (09:53)
[2020-03-09] MEDS: NA CHLORIDE 0.9% 1,000 ML IV SCH (15:00)
--- NOTE | 2020-03-10 04:39 | P.PN ---
Subjective Date of Service: 03/09/20 Patient continues to do well with no new complaints. She did get tachycardic in the 120s when she got out of bed and sat in the chair. She states that this still wears her out. Adrenal gland biopsy - left adrenal gland -in a.m.. With nodes are not amenable to surgery because they are around the aorta. Continue encouraging physical therapy. Continue advancing diet. Awaiting senior care facility placement. Review of Systems 10-point ROS is otherwise unremarkable Physical Examination - Vital Signs Temperature: 97.4 F Blood Pressure: 91/58 Pulse: 98 Respirations: 26 Pulse Ox (%): 92 - Physical Exam General: Alert, In no apparent distress, Oriented x3 Respiratory: Clear to auscultation bilaterally, Normal air movement Cardiovascular: Regular rate/rhythm, Normal S1 S2 Gastrointestinal: Normal bowel sounds, Soft and benign, Non-distended, No tenderness Musculoskeletal: No clubbing, No swelling, No tenderness Neurological: Sensation intact, Cranial nerves 3-12 intact, Abnormal gait, Abnormal speech - Studies Medications List Reviewed: Yes Assessment & Plan - Problems (Diagnosis) (1) Anemia Current Visit: Yes Status: Acute Qualifiers: Anemia type: iron deficiency Iron deficiency anemia type: chronic blood loss Qualified Code(s): D50.0 - Iron deficiency anemia secondary to blood loss (chronic) (2) Tachyarrhythmia Current Visit: Yes Status: Acute (3) Hypotension Current Visit: Yes Status: Acute (4) Mass of adrenal gland Current Visit: Yes Status: Acute (5) Chronic malnutrition Current Visit: Yes Status: Acute (6) HTN (hypertension) Current Visit: Yes Status: Acute (7) Nausea & vomiting Current Visit: Yes Status: Acute (8) Dehydration Current Visit: No Status: Acute (9) Lactic acid acidosis Current Visit: Yes Status: Acute (10) Hypoalbuminemia Current Visit: Yes Status: Acute (11) Hematuria Current Visit: Yes Status: Acute (12) Intra-abdominal lymphadenopathy Current Visit: Yes Status: Acute - Plan PLAN: 1. Clinically patient is feeling better today. Tolerating diet. Wean down steroids. May monitor inflammatory markers as well. Encourage physical activity 2. MRI of the adrenal glands did not reveal characteristics seen in adenomas. But this could not be ruled out. Patient also with intra-abdominal adenopathy. Will discuss with Radiology about biopsy. 3. Continuing with physical therapy 4. Continue with antibiotic therapy; may Dc in the next 24-48 hr 5. Monitor hemodynamics closely 6. Awaiting placement of a senior care facility-this may be complicated since patient is COVID-19 positive. - Advance Directives Does patient have a Living Will: No Does patient have a Durable POA for Healthcare: No - Code Status/Comfort Care Code Status: Full Code Physician Review: Patient Assessed, Agree with Above Assessment and Plan
[2020-03-10] MEDS: METOPROLOL TAR 25 MG TAB PO SCH ×2 (05:18→17:02)
[2020-03-10] MEDS: PANTOPRAZOLE 40MG TABLET PO SCH (05:18)
[2020-03-10 05:41] LABS: Protime INR 1.05
[2020-03-10 05:56] LABS: Albumin 1.8 g/dL (3.4-5.0); Bilirubin Total 0.9 mg/dL (0.2-1.0); Potassium 4.8 mmol/L (3.5-5.1); Protein, Total 4.9 g/dL (6.4-8.2)
[2020-03-10 06:49] LABS: Absolute Lymphocytes (CBC) 0.6 K/uL (0.7-4.9); Basophils % 0.4 % (0-1.3); Hematocrit 26.2 % (36.0-45.0); Lymphocytes % 23.1 % (15.3-44.8); MPV 10.5 fL (7.6-11.3); RBC Red Blood Cell Count 3.07 M/uL (3.86-4.86)
[2020-03-10 07:39] LABS: Platelet Estimate DECR
[2020-03-10 07:40] LABS: Anisocytosis 1+; Blood Morphology Comment NOTED (NOT SEEN); Polychromasia SLIGHT; Spherocyte FEW
[2020-03-10] MEDS: NA CHLORIDE 0.9% 1,000 ML IV SCH (08:01)
[2020-03-10] MEDS: CALCITROL 0.25 MCG CAP PO SCH ×2 (08:37→12:40)
[2020-03-10] MEDS: DOCUSATE NA 100 MG CAP PO SCH ×2 (08:37→20:39)
[2020-03-10] MEDS: CYANOCOBALAMIN 1,000 MCG TAB SL SCH ×2 (08:37→12:40)
[2020-03-10] MEDS: ENSURE HIGH PROTEIN 237 ML CAN PO SCH ×3 (08:37→20:39)
[2020-03-10] MEDS: VITAMIN D 5,000 UNIT CAP PO SCH ×2 (08:37→12:40)
[2020-03-10] MEDS: ENOXAPARIN 40 MG/0.4 ML SQ SCH (08:37)
[2020-03-10] MEDS: predniSONE 20 MG TAB PO SCH ×2 (08:37→20:39)
[2020-03-10] MEDS: PROMOD 30 ML DOSE PO SCH ×3 (08:37→21:00)
[2020-03-10] MEDS: ONDANSETRON 4 MG/2 ML VIAL IV PRN (10:41)
--- NOTE | 2020-03-10 11:43 | P.PN ---
Subjective Date of Service: 03/10/20 Chief Complaint: N/V, diarrhea, SISI>general abdominal pain, anemia, hgb 8.9,Dehydration, UTI Subjective: Doing well Physical Examination - Vital Signs Temperature: 97.4 F Blood Pressure: 92/63 Pulse: 97 Respirations: 22 Pulse Ox (%): 95 - Physical Exam General: Alert HEENT: Atraumatic Neck: Supple Respiratory: Clear to auscultation bilaterally Cardiovascular: Regular rate/rhythm Other Physical/Emotional Findings: patient seen from afar. Expressing she is doing better. - Studies Medications List Reviewed: Yes Assessment & Plan Discharge Plan: Other (SNF) Plan to discharge in: Greater than 2 days Physician Review Additional Text: Assessment Large bilateral adrenal masses, left adrenal mass 4.9 cm, right adrenal mass 3.9 cm with noted retroperitoneal adenopathy -possible neoplastic in nature vs likely incidental so far seems non functional Hyperbilirubinemia Hyponatremia and hypokalemia stable Acute anemia with noted B12 deficiency getting 2 units of PRBC UTI COVID 19 Positive Plan: Large bilateral adrenal masses, left adrenal mass 4.9 cm, right adrenal mass 3.9 cm with noted retroperitoneal adenopathy -lab nonfunctional at this time. MRI shows bilateral adrenal masses. Feeds do not have characteristics of adenomatous. They develop since 2018. Mild to moderate abdominal lymphadenopathy noted. Small bilateral renal lesions noted. 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 Neoplasm also another etiology. Radiology was to perform adrenal biopsy today but patient needs to be better conditioned plus will need to recheck COVID status. Anticipate biopsy to be done on Tuesday. Continue physical therapy. Will also pursue skilled placement. Will discuss with patient and family. Will discuss with nephrology. Hyperbilirubinemia: Continue IV fluids. MRCP unremarkable. Hyponatremia and hypokalemia related to above: resolved monitor for now Patchy gastritis with nausea and vomiting: Continue PPI Acute anemia with noted B12 deficiency, etiology unknown: Patient has required transfusion during her stay. Patient with gastritis. Continue Protonix. Monitor closely. Will replace electrolytes and B12. UTI: Resolved COVID 19 positive: Continue with prednisone. Will recheck Lab. Time Spent Managing Pts Care (In Minutes): 55
--- NOTE | 2020-03-10 19:14 | P.PN ---
Date of Service: 03/10/20 Vital Signs Temp Pulse Resp BP Pulse Ox 98.0 F 109 H 23 H 119/64 98 03/10/20 16:00 03/10/20 18:00 03/10/20 18:00 03/10/20 17:02 03/10/20 18:00 Medications Acetaminophen (Tylenol -Extra Strength) 500 mg PO Q4HP PRN PRN Reason: TEMP > 100' F Stop: 03/27/20 21:19 Last Admin: 03/07/20 04:24 Dose: 500 mg Documented by: Calcitriol (Rocaltrol) 0.5 mcg PO DAILY SUJEY Stop: 03/29/20 09:01 Last Admin: 03/10/20 12:40 Dose: 0.5 mcg Documented by: Cholecalciferol (Vitamin D 5,000 Iu Cap) 5,000 unit PO DAILY SUJEY Stop: 03/29/20 09:01 Last Admin: 03/10/20 12:40 Dose: 5,000 unit Documented by: Cyanocobalamin (Vitamin B-12) 1,000 mcg SL DAILY SUJEY Stop: 04/03/20 09:01 Last Admin: 03/10/20 12:40 Dose: 1,000 mcg Documented by: Docusate Sodium (Colace Cap) 100 mg PO BID SUJEY Stop: 03/29/20 09:01 Last Admin: 03/10/20 08:37 Dose: Not Given Documented by: Enoxaparin Sodium (Lovenox 40 Mg Inj) 40 mg SQ DAILY SUJEY Stop: 03/28/20 09:01 Last Admin: 03/10/20 08:37 Dose: Not Given Documented by: Sodium Chloride (Ns 1000 Ml Ivbag) 1,000 mls @ 50 mls/hr IV .Q20H SUJEY Stop: 04/08/20 15:01 Last Admin: 03/10/20 08:01 Dose: 1,000 mls Documented by: Metoprolol Tartrate (Lopressor) 12.5 mg PO BID 6AM 6PM SUJEY Stop: 04/06/20 18:01 Last Admin: 03/10/20 17:02 Dose: 12.5 mg Documented by: Nutritional Formula (Promod Liquid Protein) 30 ml PO BID SUJEY Stop: 04/02/20 09:01 Last Admin: 03/10/20 08:37 Dose: Not Given Documented by: Nutritional Formula (Ensure High Protein) 237 ml PO TID [facility] Stop: 04/05/20 21:01 Last Admin: 03/10/20 13:21 Dose: 237 ml Documented by: Ondansetron HCl (Zofran) 4 mg IV Q4HP PRN PRN Reason: NAUSEA / VOMITING Stop: 03/27/20 21:19 Last Admin: 03/10/20 10:41 Dose: 4 mg Documented by: Ondansetron HCl (Zofran) 4 mg PO Q4H PRN PRN Reason: NAUSEA / VOMITING Stop: 04/05/20 09:50 Last Admin: 03/06/20 10:32 Dose: 4 mg Documented by: Pantoprazole Sodium (Protonix Tab) 40 mg PO DAILYAC [facility]; Protocol Stop: 04/05/20 06:31 Last Admin: 03/10/20 05:18 Dose: 40 mg Documented by: Prednisone (Deltasone) 20 mg PO BID [facility] Stop: 04/06/20 21:01 Last Admin: 03/10/20 08:37 Dose: Not Given Documented by: Sodium Chloride (Normal Saline Flush) 10 ml IV BID [facility] Stop: 03/28/20 09:01 Last Admin: 03/10/20 08:37 Dose: 10 ml Documented by: Sodium Chloride (Sodium Chloride 10 Ml Inj) 10 ml IV UD PRN PRN Reason: Diluant Stop: 03/29/20 10:43 Last Admin: 03/03/20 07:44 Dose: 10 ml Documented by: Sterile Water (Sterile Water For Inj (10 Ml Vial)) 2 ml IV UD [facility] Stop: 04/03/20 09:01 Last Admin: 03/04/20 08:57 Dose: 2 ml Documented by: Microbiology Results 02/27/20 07:59 Blood - Blood Aerobic Blood Culture - Final No growth in 5 days. 02/27/20 07:59 Blood - Blood Anaerobic Blood Culture - Final 02/26/20 19:55 Clean Catch Urine [place] Count - Final 02/26/20 19:55 Clean Catch Urine - Final No growth. 02/27/20 07:54 Blood - Blood Aerobic Blood Culture - Final 02/27/20 07:54 Blood - Blood Blood Culture Gram Stain - Final 02/27/20 07:54 Blood - Blood Anaerobic Blood Culture - Final 02/26/20 22:45 Nasopharnyx Coronavirus COVID-19 PCR - Final 02/26/20 17:00 Nasopharnyx Influenza Type A Antigen Screen - Final 02/26/20 17:00 Nasopharnyx Influenza Type B Antigen Screen - Final Assessment/ Plan: Nephrology CPS stable without CP or SOB. Fatigue and weakness. No acute events overnight. Vitals, medications, blood work and imaging reviewed in the chart. NAD. MMM. Neck supple. CTA. RRR. Soft Abd. No C/C/E. No rash. AAO. Normal Speech. Laboratory Data (last 24 hrs) 02/26/20 17:00: WBC 7.2, Hgb 12.4, Hct 36.7, Plt Count 250 02/26/20 17:00: Sodium 135 L, Potassium 3.4 L, BUN 25 H, Creatinine 1.51 H, Glucose 121 H, Total Bilirubin 2.4 H, AST 30, ALT 16, Alkaline Phosphatase 70, Lipase 309 EXAM DESCRIPTION: [facility] Single View03/06/2020 6:07 am CLINICAL HISTORY: Cough COMPARISON: February 28, 2020 FINDINGS: Moderate left pleural effusion. Left basilar opacity may represent atelectasis or a combination of atelectasis and pneumonia The right lung appears clear of acute infiltrate. The heart is normal size Conclusions/Impression: A/ KING, resolved. Hyponatremia Hypokalemia Acidosis Hypocalcemia Moderate malnutrition Anemia in chronic illness. Pancytopenia. BL Adrenal Masses COVID 19 P/ Continue current POC and Medications. COVID protocol/ Oxygen as needed. Encourage nutrition. No NSAIDs. AM Labs prn. Daily weight.
[2020-03-11] MEDS: ONDANSETRON 4 MG/2 ML VIAL IV PRN ×2 (05:30→12:55)
[2020-03-11] MEDS: METOPROLOL TAR 25 MG TAB PO SCH ×2 (05:30→17:17)
[2020-03-11] MEDS: PANTOPRAZOLE 40MG TABLET PO SCH (05:30)
[2020-03-11] MEDS: NA CHLORIDE 0.9% 1,000 ML IV SCH ×2 (05:41→07:00)
--- NOTE | 2020-03-11 07:55 | P.PN ---
Subjective Date of Service: 03/11/20 Chief Complaint: N/V, diarrhea, SISI>general abdominal pain, anemia, hgb 8.9,Dehydration, UTI Subjective: Other (Patient reports some difficulty with sleep. Poor appetite noted.) Physical Examination - Vital Signs Temperature: 97.2 F Blood Pressure: 110/64 Pulse: 117 Respirations: 26 Pulse Ox (%): 96 - Physical Exam General: Alert, In no apparent distress, Cooperative, Cachectic HEENT: Atraumatic Neck: Supple Respiratory: Clear to auscultation bilaterally, Normal air movement Cardiovascular: Normal pulses, Regular rate/rhythm Gastrointestinal: Normal bowel sounds Integumentary: Other (Muscle wasting to the upper lower extremities. Patient appears malnourished) Neurological: Normal speech, Normal strength at 5/5 x4 extr, Normal tone, Normal affect - Studies Medications List Reviewed: Yes Assessment & Plan Discharge Plan: Other (SNF) Plan to discharge in: 48 Hours Physician Review Additional Text: Assessment Large bilateral adrenal masses, left adrenal mass 4.9 cm, right adrenal mass 3.9 cm with noted retroperitoneal adenopathy -possible neoplastic in nature vs likely incidental so far seems non functional Hyperbilirubinemia Hyponatremia and hypokalemia stable Acute on chronic anemia with thrombocytopenia likely related to above with noted B12 deficiency UTI COVID 19 Positive Moderate protein malnutrition Plan: Large bilateral adrenal masses, left adrenal mass 4.9 cm, right adrenal mass 3.9 cm with noted retroperitoneal adenopathy Lab reviewed. No indication of pheochromocytoma. MRI shows bilateral adrenal masses. Masses do not have characteristics of adenomas. They have developed since 2018. Mild to moderate abdominal lymphadenopathy noted. Small bilateral renal lesions noted. 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 Neoplasm also another etiology. Radiology was to perform adrenal biopsy yesterday but patient needs to be better conditioned. Retest of COVID status remains positive. Biopsy to be performed tomorrow. This was discussed in detail with radiology. Encourage incentive spirometer. Encourage ambulation. Encourage better conditioning. Social work to work on skilled placement. This was addressed with patient and daughter. Will dietary evaluate daily needs. Encourage oral intake. Hyperbilirubinemia: Overall stable. MRCP unremarkable. Hyponatremia and hypokalemia related to above: Recheck lab today. Will discuss further with nephrology Patchy gastritis with nausea and vomiting: Status post EGD. Continue PPI. Biopsies showed no malignancy. 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 Patient with gastritis. Continue Protonix. Monitor closely. Continue to electrolytes and B12. Recheck lab today. UTI: Resolved COVID 19 positive: Continue with prednisone. Recheck status still positive. Suspect majority of abnormalities above related to COVID infection. Moderate protein malnutrition: Dietary to evaluate and assess daily needs. Encourage oral intake. Time Spent Managing Pts Care (In Minutes): 55
[2020-03-11 07:59] LABS: Protime INR 1.14
[2020-03-11 08:04] LABS: Absolute Lymphocytes (CBC) 0.5 K/uL (0.7-4.9); Basophils % 0.3 % (0-1.3); Hematocrit 26.8 % (36.0-45.0); Lymphocytes % 23.4 % (15.3-44.8); MPV 11.2 fL (7.6-11.3); RBC Red Blood Cell Count 3.08 M/uL (3.86-4.86)
[2020-03-11 08:12] LABS: Magnesium 2.3 mg/dL (1.8-2.4); Potassium 5.2 mmol/L (3.5-5.1)
[2020-03-11] MEDS: ENSURE HIGH PROTEIN 237 ML CAN PO SCH ×3 (08:35→21:00)
[2020-03-11] MEDS: PROMOD 30 ML DOSE PO SCH ×2 (08:35→21:00)
[2020-03-11] MEDS: ENOXAPARIN 40 MG/0.4 ML SQ SCH (08:35)
[2020-03-11] MEDS: ACETAMINOPHEN 500 MG TAB PO PRN (08:38)
[2020-03-11] MEDS: CYANOCOBALAMIN 1,000 MCG TAB SL SCH ×2 (08:38→08:51)
[2020-03-11] MEDS: DOCUSATE NA 100 MG CAP PO SCH ×2 (08:38→19:51)
[2020-03-11] MEDS: predniSONE 20 MG TAB PO SCH ×3 (08:38→19:52)
[2020-03-11] MEDS: VITAMIN D 5,000 UNIT CAP PO SCH (08:38)
[2020-03-11] MEDS: CALCITROL 0.25 MCG CAP PO SCH (08:38)
[2020-03-11] MEDS ORDERED: PROMETHAZINE INJ 25 MG/ML AMP IV PRN (15:36)
[2020-03-11] MEDS: MELATONIN 3 MG TABLET PO SCH (19:52)
[2020-03-12] MEDS: NA CHLORIDE 0.9% 1,000 ML IV SCH (02:00)
[2020-03-12 05:28] LABS: Absolute Lymphocytes (CBC) 0.5 K/uL (0.7-4.9); Basophils % 0.4 % (0-1.3); Lymphocytes % 20.3 % (15.3-44.8); MPV 11.3 fL (7.6-11.3); RBC Red Blood Cell Count 3.17 M/uL (3.86-4.86)
[2020-03-12 05:45] LABS: Potassium 4.8 mmol/L (3.5-5.1)
[2020-03-12 05:46] LABS: Magnesium 2.3 mg/dL (1.8-2.4)
[2020-03-12 05:50] LABS: Protime INR 1.18
[2020-03-12] MEDS: METOPROLOL TAR 25 MG TAB PO SCH ×2 (06:00→17:32)
[2020-03-12] MEDS: PANTOPRAZOLE 40MG TABLET PO SCH (06:09)
[2020-03-12] MEDS ORDERED: NA CHLORIDE 0.9% 500 ML IV ONE (06:28)
[2020-03-12] MEDS: NACHLORIDE 0.45% 1,000 ML IV SCH ×2 (07:54→17:21)
--- NOTE | 2020-03-12 07:54 | P.PN ---
Subjective Date of Service: 03/12/20 Chief Complaint: N/V, diarrhea, SISI>general abdominal pain, anemia, hgb 8.9,Dehydration, UTI Subjective: Other (She is not eating. She is very tired. HR has increased. Nurses report she is not participating with PT.) Physical Examination - Vital Signs Temperature: 99.5 F Blood Pressure: 93/65 Pulse: 126 Respirations: 30 Pulse Ox (%): 95 - Physical Exam General: Alert, In no apparent distress, Cooperative, Cachectic HEENT: Atraumatic Neck: Supple Respiratory: Clear to auscultation bilaterally, Normal air movement Cardiovascular: Abnormal pulses (Sinus tachycardia) Gastrointestinal: Normal bowel sounds, No tenderness, No masses, No rebound, No guarding Integumentary: No erythema, No warmth, No cyanosis, Other (Muscle wasting to the upper lower extremities.) Neurological: Normal speech, Normal tone, Other (Poor overall strength but able to move appropriately.) Other Physical/Emotional Findings: patient seen from afar. Expressing she is doing better. - Studies Medications List Reviewed: Yes Assessment & Plan Discharge Plan: Other ([facility] facility) Plan to discharge in: Greater than 2 days Physician Review Additional Text: Assessment Acute renal injury with tachycardia likely dehydration with moderate protein malnutrition Large bilateral adrenal masses, left adrenal mass 4.9 cm, right adrenal mass 3.9 cm with noted retroperitoneal adenopathy -possible neoplastic in nature vs likely incidental so far seems non functional Hyperbilirubinemia Hyponatremia and hypokalemia stable Acute on chronic anemia with thrombocytopenia likely related to above with noted B12 deficiency UTI COVID 19 Positive Plan: Acute renal injury with tachycardia likely dehydration with moderate protein malnutrition: Tachycardia noted today. Blood pressure slightly low as well. Patient with poor oral intake. Patient not ambulating well or participating with physical therapy. Will hold off on biopsy due to poor conditioning. This was discussed in detail with patient and daughter. Will provide fluid bolus of IV fluid. Will increase IV fluids as well. Will discuss with nephrology. Encourage oral intake. If poor oral intake will consider Doffhoff placement for oral nutrition. If this continues will need to consider PEG tube. Will monitor closely. Will discuss with GI as well. Will monitor lab closely. Will discuss with social worker palliative care about plan of care. Patient likely require skilled placement but if she is not able to participate this may be difficult. Large bilateral adrenal masses, left adrenal mass 4.9 cm, right adrenal mass 3.9 cm with noted retroperitoneal adenopathy Lab reviewed. No indication of pheochromocytoma. MRI shows bilateral adrenal masses. Masses do not have characteristics of adenomas. They have developed since 2018. Mild to moderate abdominal lymphadenopathy noted. Small bilateral renal lesions noted. 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 Neoplasm also another etiology. Radiology was to perform biopsy today. But due to above circumstances will need to hold off on this. Will cancer biopsy at this time. Continue above with better conditioning before biopsy. Will discuss with Oncology for further direction. Hyperbilirubinemia: Overall stable. MRCP unremarkable. Hyponatremia and hypokalemia related to above: This appears resolved. Continue above Patchy gastritis with nausea and vomiting: Status post EGD. Continue PPI. Biopsies showed no malignancy. 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 Continue above. Will need to consider PEG tube if with poor continued nutrition. Acute on chronic anemia with thrombocytopenia likely related to above with noted B12 deficiency: Will need to monitor this closely. Thrombocytopenia improved. UTI: Resolved COVID 19 positive: Continue with prednisone. Recheck status still positive. Suspect majority of abnormalities above related to COVID infection. Time Spent Managing Pts Care (In Minutes): 55
[2020-03-12] MEDS: CALCITROL 0.25 MCG CAP PO SCH (08:56)
[2020-03-12] MEDS: FOLIC ACID 1 MG TABLET PO SCH (08:56)
[2020-03-12] MEDS: CYANOCOBALAMIN 1,000 MCG TAB SL SCH (08:56)
[2020-03-12] MEDS: THIAMINE HCL 100 MG TABLET PO SCH (08:56)
[2020-03-12] MEDS: VITAMIN D 5,000 UNIT CAP PO SCH (08:56)
[2020-03-12] MEDS: predniSONE 20 MG TAB PO SCH ×2 (08:56→20:19)
[2020-03-12] MEDS: DOCUSATE NA 100 MG CAP PO SCH ×2 (08:57→20:18)
[2020-03-12] MEDS: ENOXAPARIN 40 MG/0.4 ML SQ SCH (08:58)
[2020-03-12] MEDS: PROMOD 30 ML DOSE PO SCH ×2 (08:59→20:19)
[2020-03-12] MEDS: ENSURE HIGH PROTEIN 237 ML CAN PO SCH ×3 (08:59→20:19)
[2020-03-12] MEDS ORDERED: VITAL AF 1,000 ML BOT RTH SCH (11:00)
--- NOTE | 2020-03-12 14:49 | RAD REPORT ---
EXAM DESCRIPTION: RAD - Abdomen 1 View (KUB) - 03/12/2020 2:41 pm CLINICAL HISTORY: Device placement Dobhoff tube placement FINDINGS: The tip of a Dobhoff tube lies near the junction of the gastric body and fundus.
[2020-03-12] MEDS: MELATONIN 3 MG TABLET PO SCH (20:18)
--- NOTE | 2020-03-12 21:47 | P.PN ---
Date of Service: 03/12/20 Vital Signs Temp Pulse Resp BP Pulse Ox 98.6 F 96 H 21 H 100/58 L 94 03/12/20 20:00 03/12/20 20:00 03/12/20 20:00 03/12/20 20:00 03/12/20 20:00 Medications Acetaminophen (Tylenol -Extra Strength) 500 mg PO Q4HP PRN PRN Reason: TEMP > 100' F Stop: 03/27/20 21:19 Last Admin: 03/11/20 08:38 Dose: 500 mg Documented by: Calcitriol (Rocaltrol) 0.5 mcg PO DAILY SUJEY Stop: 03/29/20 09:01 Last Admin: 03/12/20 08:56 Dose: 0.5 mcg Documented by: Cholecalciferol (Vitamin D 5,000 Iu Cap) 5,000 unit PO DAILY SUJEY Stop: 03/29/20 09:01 Last Admin: 03/12/20 08:56 Dose: 5,000 unit Documented by: Cyanocobalamin (Vitamin B-12) 1,000 mcg SL DAILY SUJE[facility] Stop: 04/03/20 09:01 Last Admin: 03/12/20 08:56 Dose: 1,000 mcg Documented by: Docusate Sodium (Colace Cap) 100 mg PO BID SUJEY Stop: 03/29/20 09:01 Last Admin: 03/12/20 20:18 Dose: 100 mg Documented by: Enoxaparin Sodium (Lovenox 40 Mg Inj) 40 mg SQ DAILY SUJEY Stop: 03/28/20 09:01 Last Admin: 03/12/20 08:58 Dose: Not Given Documented by: Folic Acid (Folic Acid) 1 mg PO DAILY SUJEY Stop: 04/11/20 09:01 Last Admin: 03/12/20 08:56 Dose: 1 mg Documented by: Sodium Chloride (Sodium Chloride 0.45%) 1,000 mls @ 100 mls/hr IV .Q10H SUJEY Stop: 04/11/20 08:01 Last Admin: 03/12/20 17:21 Dose: 1,000 mls Documented by: Melatonin (Melatonin) 3 mg PO BEDTIME SUJEY Stop: 04/10/20 21:01 Last Admin: 03/12/20 20:18 Dose: 3 mg Documented by: Metoprolol Tartrate (Lopressor) 12.5 mg PO BID 6AM 6PM [facility] Stop: 04/06/20 18:01 Last Admin: 03/12/20 17:32 Dose: 12.5 mg Documented by: Nutritional Formula (Promod Liquid Protein) 30 ml PO BID [facility] Stop: 04/02/20 09:01 Last Admin: 03/12/20 20:19 Dose: Not Given Documented by: Nutritional Formula (Ensure High Protein) 237 ml PO TID [facility] Stop: 04/05/20 21:01 Last Admin: 03/12/20 20:19 Dose: Not Given Documented by: Nutritional Formula (Vital Af) 0 ml RTH CONT [facility] Stop: 04/11/20 11:01 Ondansetron HCl (Zofran) 4 mg IV Q4HP PRN PRN Reason: NAUSEA / VOMITING Stop: 03/27/20 21:19 Last Admin: 03/11/20 12:55 Dose: 4 mg Documented by: Ondansetron HCl (Zofran) 4 mg PO Q4H PRN PRN Reason: NAUSEA / VOMITING Stop: 04/05/20 09:50 Last Admin: 03/06/20 10:32 Dose: 4 mg Documented by: [facility]oprazole [facility] ([facility]) [facility] Protocol Stop: 04/05/20 06:31 Last Admin: 03/12/20 06:09 Dose: Not Given Documented by: Prednisone (Deltasone) 20 mg PO BID [facility] Stop: 04/06/20 21:01 Last Admin: 03/12/20 20:19 Dose: 20 mg Documented by: Promethazine HCl (Phenergan) 12.5 mg IV Q8H PRN PRN Reason: NAUSEA / VOMITING Stop: 04/10/20 15:37 Last Admin: 03/11/20 17:18 Dose: 12.5 mg Documented by: Sodium Chloride (Normal Saline Flush) 10 ml IV BID [facility] Stop: 03/28/20 09:01 Last Admin: 03/12/20 20:19 Dose: 10 ml Documented by: Sodium Chloride (Sodium Chloride 10 Ml Inj) 10 ml IV UD PRN PRN Reason: Diluant Stop: 03/29/20 10:43 Last Admin: 03/03/20 07:44 Dose: 10 ml Documented by: Sterile Water (Sterile Water For Inj (10 Ml Vial)) 2 ml IV UD [facility] Stop: 04/03/20 09:01 Last Admin: 03/04/20 08:57 Dose: 2 ml Documented by: Thiamine HCl (Vitamin B-1) 100 mg PO DAILY SUJEY Stop: 04/11/20 09:01 Last Admin: 03/12/20 08:56 Dose: 100 mg Documented by: Microbiology Results 02/27/20 07:59 Blood - Blood Aerobic Blood Culture - Final No growth in 5 days. 02/27/20 07:59 Blood - Blood Anaerobic Blood Culture - Final 02/26/20 19:55 Clean Catch Urine [place] Count - Final 02/26/20 19:55 Clean Catch Urine - Final No growth. 02/27/20 07:54 Blood - Blood Aerobic Blood Culture - Final 02/27/20 07:54 Blood - Blood Blood Culture Gram Stain - Final 02/27/20 07:54 Blood - Blood Anaerobic Blood Culture - Final 02/26/20 22:45 Nasopharnyx Coronavirus COVID-19 PCR - Final 02/26/20 17:00 Nasopharnyx Influenza Type A Antigen Screen - Final 02/26/20 17:00 Nasopharnyx Influenza Type B Antigen Screen - Final Assessment/ Plan: Nephrology CPS stable without CP or SOB. Fatigue and weakness. No acute events overnight. Vitals, medications, blood work and imaging reviewed in the chart. NAD. MMM. Neck supple. CTA. RRR. Soft Abd. No C/C/E. No rash. AAO. Normal Speech. Laboratory Data (last 24 hrs) 02/26/20 17:00: WBC 7.2, Hgb 12.4, Hct 36.7, Plt Count 250 02/26/20 17:00: Sodium 135 L, Potassium 3.4 L, BUN 25 H, Creatinine 1.51 H, Glucose 121 H, Total Bilirubin 2.4 H, AST 30, ALT 16, Alkaline Phosphatase 70, Lipase 309 EXAM DESCRIPTION: Emilie Single View03/06/2020 6:07 am CLINICAL HISTORY: Cough COMPARISON: February 28, 2020 FINDINGS: Moderate left pleural effusion. Left basilar opacity may represent atelectasis or a combination of atelectasis and pneumonia The right lung appears clear of acute infiltrate. The heart is normal size Conclusions/Impression: A/ KING, resolved. Hyponatremia Hypokalemia Acidosis Hypocalcemia Moderate malnutrition Anemia in chronic illness. Pancytopenia. BL Adrenal Masses COVID 19 P/ Continue current POC and Medications. Continue IVF. COVID protocol/ Oxygen as needed. Encourage nutrition. No NSAIDs. AM Labs PRN. Daily weight.
[2020-03-13] MEDS: NACHLORIDE 0.45% 1,000 ML IV SCH ×3 (03:04→22:09)
[2020-03-13] MEDS: METOPROLOL TAR 25 MG TAB PO SCH ×2 (04:24→17:27)
[2020-03-13 05:06] LABS: Absolute Lymphocytes (CBC) 0.6 K/uL (0.7-4.9); Basophils % 0.2 % (0-1.3); Hematocrit 25.7 % (36.0-45.0); Lymphocytes % 18.7 % (15.3-44.8); MPV 11.9 fL (7.6-11.3)
[2020-03-13] MEDS: PANTOPRAZOLE 40MG TABLET PO SCH (05:09)
[2020-03-13 05:21] LABS: Magnesium 2.3 mg/dL (1.8-2.4); Potassium 4.4 mmol/L (3.5-5.1)
[2020-03-13] MEDS: ENSURE HIGH PROTEIN 237 ML CAN PO SCH ×2 (09:00→14:00)
[2020-03-13] MEDS: PROMOD 30 ML DOSE PO SCH (09:00)
[2020-03-13] MEDS: FOLIC ACID 1 MG TABLET PO SCH (10:00)
[2020-03-13] MEDS: DOCUSATE NA 100 MG CAP PO SCH ×2 (10:49→19:14)
[2020-03-13] MEDS: VITAMIN D 5,000 UNIT CAP PO SCH (10:49)
[2020-03-13] MEDS: ENOXAPARIN 40 MG/0.4 ML SQ SCH (10:49)
[2020-03-13] MEDS: CYANOCOBALAMIN 1,000 MCG TAB SL SCH (10:49)
[2020-03-13] MEDS: CALCITROL 0.25 MCG CAP PO SCH (10:50)
[2020-03-13] MEDS: predniSONE 20 MG TAB PO SCH (10:50)
[2020-03-13] MEDS: THIAMINE HCL 100 MG TABLET PO SCH (10:51)
--- NOTE | 2020-03-13 11:37 | P.PN ---
Subjective Date of Service: 03/13/20 Chief Complaint: N/V, diarrhea, SISI>general abdominal pain, anemia, hgb 8.9,Dehydration, UTI Subjective: Other (Dobhoff was placed yesterday. Still with poor ambulation or movement. More confused today.) Physical Examination - Vital Signs Temperature: 98.3 F Blood Pressure: 92/65 Pulse: 106 Respirations: 21 Pulse Ox (%): 92 - Physical Exam General: Alert, Other (Patient with increase confusion but follows commands.) HEENT: Atraumatic, Other (Dry mucous membranes) Respiratory: Clear to auscultation bilaterally, Normal air movement Cardiovascular: Abnormal pulses (Sinus tachycardia) Gastrointestinal: Normal bowel sounds, No tenderness, No masses, No rebound, No guarding Musculoskeletal: No erythema, No tenderness, No warmth Integumentary: No tenderness/swelling, No erythema, No warmth, No cyanosis Neurological: Other (Overall lack of strength throughout. Muscle wasting noted.) - Studies Medications List Reviewed: Yes Assessment & Plan Discharge Plan: Other (Skilled placement versus home with hospice versus other) Plan to discharge in: Greater than 2 days Physician Review Additional Text: Assessment Acute renal injury with tachycardia likely dehydration with moderate protein malnutrition complicated with encephalopathy likely metabolic Large bilateral adrenal masses, left adrenal mass 4.9 cm, right adrenal mass 3.9 cm with noted retroperitoneal adenopathy -possible neoplastic in nature vs likely incidental so far seems non functional Hyperbilirubinemia Hyponatremia and hypokalemia stable Acute on chronic anemia with thrombocytopenia likely related to above with noted B12 deficiency UTI COVID 19 Positive Plan: Acute renal injury with tachycardia likely dehydration with moderate protein malnutrition complicated with encephalopathy likely metabolic: Dobhoff placed yesterday. Continue with nutrition and IV fluids. Encourage ambulation. Patient more confused today. Prior CT head unremarkable. No evidence of infection. Case reviewed in detail. Case also discuss with family concerning plan of care. Will try to reach out to Oncology for the possibilities of future care. Prognosis appears poor due to her current nutritional status. She likely would not be a candidate for chemotherapy or radiation if a diagnosis is clear to show that he she has cancer. Will have family come and the patient. Will address advanced directives and plan of care again. Will consider getting CT head. Family meeting scheduled. Will discuss further with Oncology and Nephrology. Large bilateral adrenal masses, left adrenal mass 4.9 cm, right adrenal mass 3.9 cm with noted retroperitoneal adenopathy Lab reviewed. No indication of pheochromocytoma. MRI shows bilateral adrenal masses. Masses do not have characteristics of adenomas. They have developed since 2018. Mild to moderate abdominal lymphadenopathy noted. Small bilateral renal lesions noted. 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 Neoplasm also another etiology. Radiology was to perform biopsy today. But due to above circumstances will need to hold off on this. Will cancer biopsy at this time. Continue above with better conditioning before biopsy. Will discuss with Oncology for further direction. Hyperbilirubinemia: Overall stable. MRCP unremarkable. Hyponatremia and hypokalemia related to above: This appears resolved. Continue above Patchy gastritis with nausea and vomiting: Status post EGD. Continue PPI. Biopsies showed no malignancy. 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 Continue above. Will need to consider PEG tube if with poor continued nutrition. Acute on chronic anemia with thrombocytopenia likely related to above with noted B12 deficiency: Will need to monitor this closely. Thrombocytopenia improved. UTI: Resolved COVID 19 positive: Continue with prednisone. Recheck status still positive. Jaime spect majority of abnormalities above related to COVID infection. Time Spent Managing Pts Care (In Minutes): 55
[2020-03-13] MEDS ORDERED: NA CHLORIDE 0.9% 500 ML IV ONE (12:02)
[2020-03-13 14:59] LABS: Arterial Blood Carboxyhemoglob 2.4 % (0-1.5); Blood Gas Oxyhemoglobin 86.2 % (94-97); Blood O2 Saturation 89.1 % (92-98.5)
--- NOTE | 2020-03-13 15:04 | RAD REPORT ---
EXAM DESCRIPTION: RAD - Chest Single View - 03/13/2020 2:50 pm CLINICAL HISTORY: o2 sats dropping COMPARISON: KUB March 12, portable chest March 06 TECHNIQUE: AP portable chest image was obtained 03/13/2020 2:50 pm . FINDINGS: Left-side pleural effusion appears to be enlarging. No worsening failure or volume overloa d findings identifiable. Patient may have minimal right pleural effusion. No new mass or lung parench ymal infiltrate. Left base atelectasis is present. Heart size is normal range and stable. Feeding tub e is in place. No acute aortic findings suspected. IMPRESSION: Left pleural effusion appears to be enlarging from prior imaging. No other new or progressive process seen.
[2020-03-13] MEDS: HYDROCORTISONE SUC 100 MG INJ IV SCH ×2 (16:53→19:16)
[2020-03-13] MEDS ORDERED: ALBUMIN HUMAN 25% 100 ML IV ONE (18:00)
[2020-03-13] MEDS: MELATONIN 3 MG TABLET PO SCH (19:14)
[2020-03-13] MEDS ORDERED: ALBUMIN HUMAN 25% 200 ML IV ONE (19:24)
[2020-03-13] MEDS ORDERED: FLUDROCORTISONE 0.1 MG TAB PO SCH (19:30)
--- NOTE | 2020-03-13 19:33 | P.PN ---
Date of Service: 03/13/20 Vital Signs Temp Pulse Resp BP Pulse Ox 97.4 F 142 H 33 H 76/42 L 93 03/13/20 16:00 03/13/20 17:27 03/13/20 16:00 03/13/20 17:27 03/13/20 16:00 Medications Acetaminophen (Tylenol -Extra Strength) 500 mg PO Q4HP PRN PRN Reason: TEMP > 100' F Stop: 03/27/20 21:19 Last Admin: 03/11/20 08:38 Dose: 500 mg Documented by: Calcitriol (Rocaltrol) 0.5 mcg PO DAILY [facility]JEY Stop: 03/29/20 09:01 Last Admin: 03/13/20 10:50 Dose: 0.5 mcg Documented by: Cholecalciferol (Vitamin D 5,000 Iu Cap) 5,000 unit PO DAILY SUJEY Stop: 03/29/20 09:01 Last Admin: 03/13/20 10:49 Dose: 5,000 unit Documented by: Cyanocobalamin (Vitamin B-12) 1,000 mcg SL DAILY SUJE[facility] Stop: 04/03/20 09:01 Last Admin: 03/13/20 10:49 Dose: 1,000 mcg Documented by: Docusate Sodium (Colace Cap) 100 mg PO BID [facility] Stop: 03/29/20 09:01 Last Admin: 03/13/20 19:14 Dose: Not Given Documented by: Enoxaparin Sodium (Lovenox 40 Mg Inj) 40 mg SQ DAILY [facility] Stop: 03/28/20 09:01 Last Admin: 03/13/20 10:49 Dose: 40 mg Documented by: Fludrocortisone Acetate (Florinef) 0.2 mg PO DAILY SUJEY Stop: 04/12/20 19:31 Folic Acid (Folic Acid) 1 mg PO DAILY SUJEY Stop: 04/11/20 09:01 Last Admin: 03/13/20 10:00 Dose: 1 mg Documented by: Hydrocortisone Sodium Succinate (Solu-Cortef) 100 mg IV Q12HR [facility] Stop: 04/12/20 15:31 Last Admin: 03/13/20 19:16 Dose: 100 mg Documented by: Sodium Chloride (Sodium Chloride 0.45%) 1,000 mls @ 100 mls/hr IV .Q10H [facility] Stop: 04/11/20 08:01 Last Admin: 03/13/20 14:00 Dose: 1,000 mls Documented by: Albumin Human (Albumin 25%) 200 mls @ 100 mls/hr IV 1X ONE Stop: 03/13/20 21:23 Melatonin (Melatonin) 3 mg PO BEDTIME [facility] Stop: 04/10/20 21:01 Last Admin: 03/13/20 19:14 Dose: Not Given Documented by: Metoprolol Tartrate (Lopressor) 12.5 mg PO BID 6AM 6PM [facility] Stop: 04/06/20 18:01 Last Admin: 03/13/20 17:27 Dose: Not Given Documented by: Nutritional Formula (Vital Af) 0 ml RTH CONT [facility] Stop: 04/11/20 11:01 Ondansetron HCl (Zofran) 4 mg IV Q4HP PRN PRN Reason: NAUSEA / VOMITING Stop: 03/27/20 21:19 Last Admin: 03/11/20 12:55 Dose: 4 mg Documented by: Ondansetron HCl (Zofran) 4 mg PO Q4H PRN PRN Reason: NAUSEA / VOMITING Stop: 04/05/20 09:50 Last Admin: 03/06/20 10:32 Dose: 4 mg Documented by: Pantoprazole Sodium (Protonix Tab) 40 mg PO DAILYAC [facility]; Protocol Stop: 04/05/20 06:31 Last Admin: 03/13/20 05:09 Dose: 40 mg Documented by: Promethazine HCl (Phenergan) 12.5 mg IV Q8H PRN PRN Reason: NAUSEA / VOMITING Stop: 04/10/20 15:37 Last Admin: 03/11/20 17:18 Dose: 12.5 mg Documented by: Sodium Chloride (Normal Saline Flush) 10 ml IV BID [facility] Stop: 03/28/20 09:01 Last Admin: 03/13/20 19:14 Dose: 10 ml Documented by: Sodium Chloride (Sodium Chloride 10 Ml Inj) 10 ml IV UD PRN PRN Reason: Diluant Stop: 03/29/20 10:43 Last Admin: 03/03/20 07:44 Dose: 10 ml Documented by: Sterile Water (Sterile Water For Inj (10 Ml Vial)) 2 ml IV UD [facility] Stop: 04/03/20 09:01 Last Admin: 03/04/20 08:57 Dose: 2 ml Documented by: Thiamine HCl (Vitamin B-1) 100 mg PO DAILY SUJEY Stop: 04/11/20 09:01 Last Admin: 03/13/20 10:51 Dose: 100 mg Documented by: Microbiology Results 02/27/20 07:59 Blood - Blood Aerobic Blood Culture - Final No growth in 5 days. 02/27/20 07:59 Blood - Blood Anaerobic Blood Culture - Final 02/26/20 19:55 Clean Catch Urine [place] Count - Final 02/26/20 19:55 Clean Catch Urine - Final No growth. 02/27/20 07:54 Blood - Blood Aerobic Blood Culture - Final 02/27/20 07:54 Blood - Blood Blood Culture Gram Stain - Final 02/27/20 07:54 Blood - Blood Anaerobic Blood Culture - Final 02/26/20 22:45 Nasopharnyx Coronavirus COVID-19 PCR - Final 02/26/20 17:00 Nasopharnyx Influenza Type A Antigen Screen - Final 02/26/20 17:00 Nasopharnyx Influenza Type B Antigen Screen - Final Assessment/ Plan: Nephrology CPS stable without CP or SOB. Fatigue and weakness. No acute events overnight. Limited IH/ ROS due to AMS. Vitals, medications, blood work and imaging reviewed in the chart. NAD. MMM. Neck supple. CTA. RRR. Soft Abd. No C/C/E. No rash. AAO. Normal Speech. Laboratory Data (last 24 hrs) 02/26/20 17:00: WBC 7.2, Hgb 12.4, Hct 36.7, Plt Count 250 02/26/20 17:00: Sodium 135 L, Potassium 3.4 L, BUN 25 H, Creatinine 1.51 H, Glucose 121 H, Total Bilirubin 2.4 H, AST 30, ALT 16, Alkaline Phosphatase 70, Lipase 309 EXAM DESCRIPTION: Emilie Single View03/06/2020 6:07 am CLINICAL HISTORY: Cough COMPARISON: February 28, 2020 FINDINGS: Moderate left pleural effusion. Left basilar opacity may represent atelectasis or a combination of atelectasis and pneumonia The right lung appears clear of acute infiltrate. The heart is normal size Conclusions/Impression: A/ KING, resolved. Hyponatremia Hypokalemia Acidosis Hypocalcemia Moderate malnutrition Anemia in chronic illness. Pancytopenia. BL Adrenal Masses COVID 19 Toxic metabolic encephalopathy. P/ Continue current POC and Medications. Continue IVF. Give IV Albumin. Agree with hydrocortisone. Give a dose of fludrocortisone. COVID protocol/ Oxygen as needed. Encourage nutrition. No NSAIDs. AM Labs PRN. Daily weight. Case reviewed with Dr. Granados.
[2020-03-14] MEDS: PANTOPRAZOLE 40MG TABLET PO SCH (03:23)
[2020-03-14] MEDS: METOPROLOL TAR 25 MG TAB PO SCH ×2 (03:23→18:00)
[2020-03-14] MEDS ORDERED: ALBUMIN HUMAN 25% 100 ML IV ONE (06:26)
[2020-03-14 06:36] LABS: Magnesium 2.3 mg/dL (1.8-2.4); Potassium 4.2 mmol/L (3.5-5.1)
[2020-03-14 07:17] LABS: Absolute Lymphocytes (CBC) 0.4 K/uL (0.7-4.9); Basophils % 0.4 % (0-1.3); Hematocrit 21.3 % (36.0-45.0); Lymphocytes % 15.4 % (15.3-44.8); RBC Red Blood Cell Count 2.39 M/uL (3.86-4.86)
--- NOTE | 2020-03-14 07:25 | P.PN ---
Subjective Date of Service: 03/14/20 Chief Complaint: N/V, diarrhea, SISI>general abdominal pain, anemia, hgb 8.9,Dehydration, UTI Subjective: Other (Patient more confused this morning. Patient apparently pulled out her dobhoff last night. NG tube was placed. Blood pressure remains low. Heart rate improved.) Physical Examination - Vital Signs Temperature: 99.1 F Blood Pressure: 84/57 Pulse: 110 Respirations: 26 Pulse Ox (%): 97 - Physical Exam General: Other (Patient remains confuse. Still very lethargic and cachectic. No significant change since yesterday. Worsening condition noted.) HEENT: Atraumatic Respiratory: Other (Patient on high-flow oxygen) Cardiovascular: Abnormal pulses (Sinus tachycardia) Neurological: Other (Patient confuse. Patient appears very malnourished. Muscle wasting to the upper lower extremity and face.) - Studies Medications List Reviewed: Yes Assessment & Plan Discharge Plan: Home Plan to discharge in: 48 Hours Physician Review Additional Text: Assessment Acute renal injury with tachycardia likely dehydration with severe protein malnutrition/hypoalbuminemia complicated with encephalopathy likely metabolic, failure to thrive,all likely may be related to COVID 19 condition versus possible cancer, left pleural effusion Large bilateral adrenal masses, left adrenal mass 4.9 cm, right adrenal mass 3.9 cm with noted retroperitoneal adenopathy -possible neoplastic in nature vs likely incidental so far seems non functional Hyperbilirubinemia Hyponatremia and hypokalemia stable Acute on chronic anemia with thrombocytopenia likely related to above with noted B12 deficiency UTI COVID 19 Positive Plan: Acute renal injury with tachycardia likely dehydration with severe protein malnutrition/hypoalbuminemia complicated with encephalopathy likely metabolic, failure to thrive,all likely may be related to COVID 19 condition versus possible cancer, left pleural effusion: Patient pulled out her Dobhoff last night. Blood pressure remains low with tachycardia. Fluid bolus to be given along with albumin. Hydrocortisone started last night. Prednisone discontinued it. ACTH test pending. NG tube was placed after Doffhoff was removed. Patient remains in critical condition. May need to had IV his Levophed to maintain map of 65. She may need blood transfusion if hemoglobin low. I have discussed the case in detail with nephrology and oncology. Patient not able to get biopsy of adrenal gland due to her failure to thrive and poor condition. Oncology mentioned that if this were to be cancer she would not be a candidate for treatment due to her condition. Palliative care would only be offered. Advance care planning and advanced directives readdress this morning with the daughter. She understands that her condition is worsening. She will convene with family again. She is considering DNR status and possibly hospice. She will come by this morning to re-evaluate and assess this. I have express that her condition continues to decline. She understands. Await for further plan of care. Large bilateral adrenal masses, left adrenal mass 4.9 cm, right adrenal mass 3.9 cm with noted retroperitoneal adenopathy Lab reviewed. No indication of pheochromocytoma. MRI shows bilateral adrenal masses. Masses do not have characteristics of adenomas. They have developed since 2018. Mild to moderate abdominal lymphadenopathy noted. Small bilateral renal lesions noted. 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 Neoplasm also another etiology. Biopsy still cannot be done due to her condition. Hyperbilirubinemia: Overall stable. MRCP unremarkable. Hyponatremia and hypokalemia related to above: This appears resolved. Continue above Patchy gastritis with nausea and vomiting: Status post EGD. Continue PPI. Biopsies showed no malignancy. 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 Continue above. Will need to consider PEG tube if with poor continued nutrition. Acute on chronic anemia with thrombocytopenia likely related to above with noted B12 deficiency: Will need to monitor this closely. Thrombocytopenia improved. Patient may require blood transfusion. UTI: Resolved COVID 19 positive: Prednisone discontinued. Now on hydrocortisone. Suspect majority of abnormalities above related to COVID infection. Time Spent Managing Pts Care (In Minutes): 55
[2020-03-14] MEDS ORDERED: NOREPINEPHRINE 4 MG in D5W 250 ML IV PRN (07:50)
[2020-03-14] MEDS: DOCUSATE NA 100 MG CAP PO SCH ×2 (08:13→20:33)
[2020-03-14] MEDS: VITAMIN D 5,000 UNIT CAP PO SCH (08:14)
[2020-03-14] MEDS: THIAMINE HCL 100 MG TABLET PO SCH (08:14)
[2020-03-14] MEDS: FOLIC ACID 1 MG TABLET PO SCH (08:14)
[2020-03-14] MEDS: CALCITROL 0.25 MCG CAP PO SCH (08:14)
[2020-03-14] MEDS: CYANOCOBALAMIN 1,000 MCG TAB SL SCH (08:14)
[2020-03-14] MEDS ORDERED: ALBUMIN HUMAN 25% 50 ML IV ONE (08:19)
--- NOTE | 2020-03-14 08:58 | RAD REPORT ---
EXAM DESCRIPTION: RAD - Abdomen 1 View (KUB) - 03/14/2020 8:26 am CLINICAL HISTORY: dobhoff placement COMPARISON: Abdomen 1 View (KUB) dated 03/12/2020; Abdomen Pelvis W Contrast dated 02/26/2020 FINDINGS: Single view the abdomen shows nasogastric tube in place. Tip of the tube is in the proxima l most stomach. Side hole of the tubing is still in the distal esophagus. Cardiac lead overlies the upper abdomen. Bowel gas pattern is nonspecific. No free air or pneumatosis . IMPRESSION: NG tube placement with the tip in the proximal most stomach and the side hole of the tub ing in the distal esophagus.
[2020-03-14] MEDS: ENOXAPARIN 40 MG/0.4 ML SQ SCH (09:20)
[2020-03-14] MEDS: HYDROCORTISONE SUC 100 MG INJ IV SCH ×2 (09:20→20:36)
[2020-03-14] MEDS: NACHLORIDE 0.45% 1,000 ML IV SCH ×2 (10:00→20:34)
[2020-03-14] MEDS ORDERED: NA CHLORIDE 0.9% 250 ML ONE (11:40)
[2020-03-14 12:43] LABS: Anisocytosis 1+; Blood Morphology Comment NOTED (NOT SEEN); Platelet Estimate DECR
[2020-03-14 12:44] LABS: Basophilic Stippling 1+; Polychromasia 1+
[2020-03-14 16:23] LABS: Hematocrit 24.4 % (36.0-45.0)
[2020-03-14] MEDS ORDERED: FUROSEMIDE 20 MG/ 2ML VIAL IV ONE (17:00)
[2020-03-14] MEDS: FLUDROCORTISONE 0.1 MG TAB FT SCH (17:13)
[2020-03-14] MEDS: MELATONIN 3 MG TABLET PO SCH (20:34)
[2020-03-14] MEDS: WATER FOR INJ,STERILE 10 ML IV SCH (20:36)
--- NOTE | 2020-03-14 21:38 | P.PN ---
Date of Service: 03/14/20 Vital Signs Temp Pulse Resp BP Pulse Ox 98.9 F 120 H 26 H 96/62 95 03/14/20 20:00 03/14/20 20:00 03/14/20 20:00 03/14/20 20:00 03/14/20 20:00 Medications Acetaminophen (Tylenol -Extra Strength) 500 mg PO Q4HP PRN PRN Reason: TEMP > 100' F Stop: 03/27/20 21:19 Last Admin: 03/11/20 08:38 Dose: 500 mg Documented by: Calcitriol (Rocaltrol) 0.5 mcg PO DAILY SUJEY Stop: 03/29/20 09:01 Last Admin: 03/14/20 08:14 Dose: Not Given Documented by: Cholecalciferol (Vitamin D 5,000 Iu Cap) 5,000 unit PO DAILY SUJEY Stop: 03/29/20 09:01 Last Admin: 03/14/20 08:14 Dose: Not Given Documented by: Cyanocobalamin (Vitamin B-12) 1,000 mcg SL DAILY SUJEY Stop: 04/03/20 09:01 Last Admin: 03/14/20 08:14 Dose: Not Given Documented by: Docusate Sodium (Colace Cap) 100 mg PO BID SUJEY Stop: 03/29/20 09:01 Last Admin: 03/14/20 20:33 Dose: 100 mg Documented by: Enoxaparin Sodium (Lovenox 40 Mg Inj) 40 mg SQ DAILY SUJEY Stop: 03/28/20 09:01 Last Admin: 03/14/20 09:20 Dose: 40 mg Documented by: Fludrocortisone Acetate (Florinef) 0.2 mg FT DAILY SUJEY Stop: 04/13/20 17:01 Last Admin: 03/14/20 17:13 Dose: 0.2 mg Documented by: Folic Acid (Folic Acid) 1 mg PO DAILY SUJEY Stop: 04/11/20 09:01 Last Admin: 03/14/20 08:14 Dose: Not Given Documented by: Hydrocortisone Sodium Succinate (Solu-Cortef) 100 mg IV Q12HR SUJEY Stop: 04/12/20 15:31 Last Admin: 03/14/20 20:36 Dose: 100 mg Documented by: Sodium Chloride (Sodium Chloride 0.45%) 1,000 mls @ 100 mls/hr IV .Q10H SUJEY Stop: 04/11/20 08:01 Last Admin: 03/14/20 20:34 Dose: 1,000 mls Documented by: Norepinephrine Bitartrate 4 mg (/ Dextrose) 254 mls @ 0 mls/hr IV PRN PRN; Protocol PRN Reason: Hemodynamic Parameters Stop: 04/13/20 07:51 Melatonin (Melatonin) 3 mg PO BEDTIME [facility] Stop: 04/10/20 21:01 Last Admin: 03/14/20 20:34 Dose: Not Given Documented by: Metoprolol Tartrate (Lopressor) 12.5 mg PO BID 6AM 6PM [facility] Stop: 04/06/20 18:01 Last Admin: 03/14/20 18:00 Dose: Not Given Documented by: Nutritional Formula (Vital Af) 0 ml RTH CONT [facility] Stop: 04/11/20 11:01 Ondansetron HCl (Zofran) 4 mg IV Q4HP PRN PRN Reason: NAUSEA / VOMITING Stop: 03/27/20 21:19 Last Admin: 03/11/20 12:55 Dose: 4 mg Documented by: Ondansetron HCl (Zofran) 4 mg PO Q4H PRN PRN Reason: NAUSEA / VOMITING Stop: 04/05/20 09:50 Last Admin: 03/06/20 10:32 Dose: 4 mg Documented by: Pantoprazole Sodium (Protonix Tab) 40 mg PO DAILYAC [facility]; Protocol Stop: 04/05/20 06:31 Last Admin: 03/14/20 03:23 Dose: Not Given Documented by: Promethazine HCl (Phenergan) 12.5 mg IV Q8H PRN PRN Reason: NAUSEA / VOMITING Stop: 04/10/20 15:37 Last Admin: 03/11/20 17:18 Dose: 12.5 mg Documented by: Sodium Chloride (Normal Saline Flush) 10 ml IV BID [facility] Stop: 03/28/20 09:01 Last Admin: 03/14/20 20:33 Dose: 10 ml Documented by: Sodium Chloride (Sodium Chloride 10 Ml Inj) 10 ml IV UD PRN PRN Reason: Diluant Stop: 03/29/20 10:43 Last Admin: 03/03/20 07:44 Dose: 10 ml Documented by: Sterile Water (Sterile Water For Inj (10 Ml Vial)) 2 ml IV UD [facility] Stop: 04/03/20 09:01 Last Admin: 03/14/20 20:36 Dose: 2 ml Documented by: Thiamine HCl (Vitamin B-1) 100 mg PO DAILY SUJEY Stop: 04/11/20 09:01 Last Admin: 03/14/20 08:14 Dose: Not Given Documented by: Microbiology Results 02/27/20 07:59 Blood - Blood Aerobic Blood Culture - Final No growth in 5 days. 02/27/20 07:59 Blood - Blood Anaerobic Blood Culture - Final 02/26/20 19:55 Clean Catch Urine [place] Count - Final 02/26/20 19:55 Clean Catch Urine - Final No growth. 02/27/20 07:54 Blood - Blood Aerobic Blood Culture - Final 02/27/20 07:54 Blood - Blood Blood Culture Gram Stain - Final 02/27/20 07:54 Blood - Blood Anaerobic Blood Culture - Final 02/26/20 22:45 Nasopharnyx Coronavirus COVID-19 PCR - Final 02/26/20 17:00 Nasopharnyx Influenza Type A Antigen Screen - Final 02/26/20 17:00 Nasopharnyx Influenza Type B Antigen Screen - Final Assessment/ Plan: Nephrology CPS stable without CP or SOB. Fatigue and weakness. No acute events overnight. Limited IH/ ROS due to AMS. Vitals, medications, blood work and imaging reviewed in the chart. NAD. MMM. Neck supple. CTA. RRR. Soft Abd. No C/C/E. No rash. Awake. Abnormal Speech. Laboratory Data (last 24 hrs) 02/26/20 17:00: WBC 7.2, Hgb 12.4, Hct 36.7, Plt Count 250 02/26/20 17:00: Sodium 135 L, Potassium 3.4 L, BUN 25 H, Creatinine 1.51 H, Glucose 121 H, Total Bilirubin 2.4 H, AST 30, ALT 16, Alkaline Phosphatase 70, Lipase 309 EXAM DESCRIPTION: Emilie Single View03/06/2020 6:07 am CLINICAL HISTORY: Cough COMPARISON: February 28, 2020 FINDINGS: Moderate left pleural effusion. Left basilar opacity may represent atelectasis or a combination of atelectasis and pneumonia The right lung appears clear of acute infiltrate. The heart is normal size Conclusions/Impression: A/ KING, resolved. Hyponatremia Hypokalemia Acidosis Hypocalcemia Moderate malnutrition Anemia in chronic illness. Pancytopenia. BL Adrenal Masses COVID 19 Toxic metabolic encephalopathy. P/ Continue current POC and Medications. Continue IVF. Give IV Albumin prn. Continue hydrocortisone. Start fludrocortisone. COVID protocol/ Oxygen as needed. Encourage nutrition. No NSAIDs. AM Labs PRN. Daily weight. Case reviewed with Dr. Granados.
[2020-03-15 04:46] LABS: Absolute Lymphocytes (CBC) 0.4 K/uL (0.7-4.9); MPV 11.7 fL (7.6-11.3)
[2020-03-15 05:01] LABS: Basophils % 0.2 % (0-1.3); Hematocrit 24.9 % (36.0-45.0); Lymphocytes % 12.7 % (15.3-44.8); RBC Red Blood Cell Count 2.77 M/uL (3.86-4.86)
[2020-03-15 05:03] LABS: Potassium 3.6 mmol/L (3.5-5.1)
[2020-03-15] MEDS: PANTOPRAZOLE 40MG TABLET PO SCH (05:14)
[2020-03-15] MEDS: METOPROLOL TAR 25 MG TAB PO SCH ×3 (05:15→17:54)
[2020-03-15] MEDS: NACHLORIDE 0.45% 1,000 ML IV SCH ×3 (06:00→17:57)
[2020-03-15] MEDS: ENOXAPARIN 40 MG/0.4 ML SQ SCH (08:11)
[2020-03-15] MEDS: HYDROCORTISONE SUC 100 MG INJ IV SCH ×2 (08:18→20:28)
[2020-03-15] MEDS: WATER FOR INJ,STERILE 10 ML IV SCH ×2 (08:18→20:28)
[2020-03-15] MEDS: CALCITROL 0.25 MCG CAP PO SCH (08:18)
[2020-03-15] MEDS: FLUDROCORTISONE 0.1 MG TAB FT SCH (08:19)
[2020-03-15] MEDS: VITAMIN D 5,000 UNIT CAP PO SCH (08:19)
[2020-03-15] MEDS: CYANOCOBALAMIN 1,000 MCG TAB SL SCH (08:19)
[2020-03-15] MEDS: FOLIC ACID 1 MG TABLET PO SCH (08:19)
[2020-03-15] MEDS: THIAMINE HCL 100 MG TABLET PO SCH (08:19)
[2020-03-15] MEDS: DOCUSATE NA 100 MG CAP PO SCH ×2 (08:20→20:28)
[2020-03-15] MEDS ORDERED: NACHLORIDE 0.45% 1,000 ML IV SCH (09:06)
--- NOTE | 2020-03-15 09:14 | P.PN ---
Subjective Date of Service: 03/15/20 Chief Complaint: N/V, diarrhea, SISI>general abdominal pain, anemia, hgb 8.9,Dehydration, UTI Subjective: Other (Patient more alert today. Less short of breath. Blood pressure improved. Heart rate improved.) Physical Examination - Vital Signs Temperature: 98.1 F Blood Pressure: 115/86 Pulse: 126 Respirations: 25 Pulse Ox (%): 94 - Physical Exam General: Alert, Cooperative HEENT: Atraumatic Neck: Supple Respiratory: Other (Patient on high-flow oxygen) Cardiovascular: Abnormal pulses (Sinus tachycardia but improved) Gastrointestinal: No masses, No rebound, No guarding Integumentary: Tenderness/swelling (Edema to the lower extremities unchanged but stable) Neurological: Normal speech, Normal strength at 5/5 x4 extr, Normal tone, Normal affect - Studies Medications List Reviewed: Yes Assessment & Plan Discharge Plan: Home Plan to discharge in: Greater than 2 days Physician Review Additional Text: Assessment Acute renal injury with tachycardia likely dehydration with severe protein malnutrition/hypoalbuminemia complicated with encephalopathy likely metabolic, failure to thrive,all likely may be related to COVID 19 condition versus possible cancer, left pleural effusion Large bilateral adrenal masses, left adrenal mass 4.9 cm, right adrenal mass 3.9 cm with noted retroperitoneal adenopathy suspect adrenal insufficiency Hyperbilirubinemia Hyponatremia and hypokalemia stable Acute on chronic anemia with thrombocytopenia likely related to above with noted B12 deficiency UTI COVID 19 Positive Plan: Acute renal injury with tachycardia likely dehydration with severe protein malnutrition/hypoalbuminemia complicated with encephalopathy likely metabolic, failure to thrive,all likely may be related to COVID 19 condition versus possible cancer, left pleural effusion versus adrenal insufficiency: Patient currently on Hydrocortisone. Yong added by nephrology. Patient seems to be responding better. Await ACTH results. This was a send out lab. Will provide IV albumin x1. Continue to adjust IV fluids and NG tube feeds. Levophed availa ble if required. Patient seems to have responded well with transfusion. Continue to maintain hemoglobin above 8.0. Will continue to monitor closely. Hopefully that the patient will improve. If her condition continues to improve and ambulating then will consider pursuit of biopsy of adrenal glands. Patient remains at this time stable. Case discussed with family. Current plan of care to remain as mentioned yesterday. Large bilateral adrenal masses, left adrenal mass 4.9 cm, right adrenal mass 3.9 cm with noted retroperitoneal adenopathy suspect adrenal insufficiency: Continue Hydrocortisone. Patient on Florinef. Continue current plan of care. The patient continues to improve will pursue biopsy of adrenal gland. Hyperbilirubinemia: Overall stable. MRCP unremarkable. Hyponatremia and hypokalemia related to above: This appears resolved. Continue above Patchy gastritis with nausea and vomiting: Status post EGD. Continue PPI. Biopsies showed no malignancy. 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 Continue above. Will need to consider PEG tube if with poor continued nutrition. Acute on chronic anemia with thrombocytopenia likely related to above with noted B12 deficiency: Patient received 1 unit of blood. Patient has responded well. Maintain hemoglobin above 8.0. Continue to monitor closely. UTI: Resolved COVID 19 positive: Prednisone discontinued. Patient on hydrocortisone and Florinef. Time Spent Managing Pts Care (In Minutes): 55
[2020-03-15] MEDS ORDERED: ENOXAPARIN 40 MG/0.4 ML SQ SCH (09:15)
--- NOTE | 2020-03-15 10:05 | RAD REPORT ---
EXAM DESCRIPTION: RAD - Chest Single View - 03/14/2020 11:05 pm CLINICAL HISTORY: 69 years Female, S/P PICC insertion COMPARISON: 03/13/2020 at 2:43 PM TECHNIQUE: Single portable x-ray view of the chest performed on 03/14/2020 at 10:58 PM FINDINGS: The lungs are well expanded. There is bibasilar volume loss greater on the left likely due to a combination of pleural fluid and atelectasis. There is no evidence of a pneumothorax. The cardiac silhouette appears mildly prominent but stable. The mediastinal contours are normal. No acute osseous abnormality is identified. No focal soft tissue abnormalities are seen. Lines and tubes: The feeding tube extends below the diaphragm. The tip is not definitely visualized on this examination. The right upper extremity PICC line catheter tip overlies the region of the cav oatrial junction. IMPRESSION: 1. The right upper extremity PICC line catheter tip overlies the region of the cavoatria l junction. 2. The feeding tube extends below the diaphragm. 3. Ongoing bibasilar volume loss greater on the left likely due to a combination of pleural fluid and atelectasis. Electronically signed by: Nakia Hughes DO 03/14/2020 11:24 PM CDT Due to temporary technical issues with the PACS/Fluency reporting system, reports are being signed by the in house radiologist without review as a courtesy to ensure prompt reporting. The interpreting r adiologist is fully responsible for the content of the report.
[2020-03-15] MEDS: ALBUMIN HUM 5% 500 ML IV SCH (11:32)
[2020-03-15] MEDS ORDERED: POTASSIUM 25 MEQ EFFERV TAB PO ONE (16:31)
[2020-03-15] MEDS: MELATONIN 3 MG TABLET PO SCH (20:28)
[2020-03-16] MEDS: PANTOPRAZOLE 40MG TABLET PO SCH (05:24)
[2020-03-16] MEDS: METOPROLOL TAR 25 MG TAB PO SCH ×2 (05:24→17:46)
[2020-03-16 05:30] LABS: Absolute Lymphocytes (CBC) 0.5 K/uL (0.7-4.9); Basophils % 0.3 % (0-1.3); Hematocrit 24.5 % (36.0-45.0); Lymphocytes % 17.7 % (15.3-44.8); MPV 11.7 fL (7.6-11.3); RBC Red Blood Cell Count 2.69 M/uL (3.86-4.86)
[2020-03-16 05:31] LABS: Magnesium 2.2 mg/dL (1.8-2.4); Potassium 4.1 mmol/L (3.5-5.1)
[2020-03-16] MEDS: DOCUSATE NA 100 MG CAP PO SCH ×2 (08:46→19:35)
[2020-03-16] MEDS: FOLIC ACID 1 MG TABLET PO SCH (08:50)
[2020-03-16] MEDS: FLUDROCORTISONE 0.1 MG TAB FT SCH (08:50)
[2020-03-16] MEDS: WATER FOR INJ,STERILE 10 ML IV SCH (08:50)
[2020-03-16] MEDS: ACETAMINOPHEN 500 MG TAB PO PRN ×2 (08:50→20:49)
[2020-03-16] MEDS: THIAMINE HCL 100 MG TABLET PO SCH (08:50)
[2020-03-16] MEDS: CYANOCOBALAMIN 1,000 MCG TAB SL SCH (08:50)
[2020-03-16] MEDS: HYDROCORTISONE SUC 100 MG INJ IV SCH ×2 (08:50→20:03)
[2020-03-16] MEDS: VITAMIN D 5,000 UNIT CAP PO SCH (08:51)
[2020-03-16] MEDS: CALCITROL 0.25 MCG CAP PO SCH (08:51)
[2020-03-16] MEDS: ALBUMIN HUM 5% 500 ML IV SCH (10:00)
--- NOTE | 2020-03-16 10:38 | P.PN ---
Subjective Date of Service: 03/16/20 Chief Complaint: N/V, diarrhea, SISI>general abdominal pain, anemia, hgb 8.9,Dehydration, UTI Subjective: Other (Patient less alert this morning. Still with increased fatigue.) Physical Examination - Vital Signs Temperature: 99 F Blood Pressure: 100/55 Pulse: 131 Respirations: 32 Pulse Ox (%): 92 - Physical Exam General: Alert, Cachectic, Other (Patient is somewhat cooperative but increased fatigue noted with slight confusion.) HEENT: Atraumatic Neck: Supple Respiratory: Clear to auscultation bilaterally (Anteriorly), Other (Patient on high-flow oxygen) Cardiovascular: Abnormal pulses (Sinus tachycardia) Gastrointestinal: No tenderness, No masses, No rebound, No guarding Musculoskeletal: No tenderness, No warmth, Other (Muscle wasting to the upper lower extremities including face) Integumentary: No warmth, No cyanosis, Other (Less pitting edema to the lower extremities) Neurological: Other (Poor strength due to increased fatigue.) - Studies Medications List Reviewed: Yes Assessment & Plan Discharge Plan: Home Plan to discharge in: Greater than 2 days Physician Review Additional Text: Assessment Acute renal injury with tachycardia likely dehydration with severe protein malnutrition/hypoalbuminemia complicated with encephalopathy likely metabolic, failure to thrive,all likely may be related to COVID 19 condition versus possible cancer, left pleural effusion Large bilateral adrenal masses, left adrenal mass 4.9 cm, right adrenal mass 3.9 cm with noted retroperitoneal adenopathy suspect adrenal insufficiency Hyperbilirubinemia Hyponatremia and hypokalemia stable Acute on chronic anemia with thrombocytopenia likely related to above with noted B12 deficiency UTI COVID 19 Positive Plan: Acute renal injury with tachycardia likely dehydration with severe protein malnutrition/hypoalbuminemia complicated with encephalopathy likely metabolic, failure to thrive,all likely may be related to COVID 19 condition versus possible cancer, left pleural effusion versus adrenal insufficiency: Patient had a good day yesterday. Today patient with increased fatigue, alertness, and slight confusion. Blood pressure remained stable but low. Heart rate remains elevated. Lab shows no significant changes. Patient on high-flow oxygen. Continue with Hydrocortisone and Florinef. Await ACTH results. This was a send out lab. Patient continues to get periodic albumin. Continue IV fluids and NG tube feeds. Patient had pulled out dobhoff the other night. Patient now with NG tube. Continue with current management. Encourage incentive spirometer. Patient do not resuscitate. Will discuss with family about plan of care. As mentioned previously if her condition continues to decline family may think about hospice at home or inpatient. If she rebounds and improves will consider skilled placement. Will discuss with family again today. I will turn the service over to the hospitalist team tomorrow. I will go over the plan of care with him. Large bilateral adrenal masses, left adrenal mass 4.9 cm, right adrenal mass 3.9 cm with noted retroperitoneal adenopathy suspect adrenal insufficiency: Continue Hydrocortisone and Florinef. Continue current plan of care. If the patient continues to improve will pursue biopsy of adrenal gland but will need to have significant increase of strength and participation. Hyperbilirubinemia: Overall stable. MRCP unremarkable. Hyponatremia and hypokalemia related to above: This appears resolved. Continue above Patchy gastritis with nausea and vomiting: Status post EGD. Continue PPI. Biopsies showed no malignancy. 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 Continue above. Patient now with NG tube feeds. Acute on chronic anemia with thrombocytopenia likely related to above with noted B12 deficiency: Patient received 1 unit of blood. Patient has responded well. Maintain hemoglobin above 8.0. Continue to monitor closely. UTI: Resolved COVID 19 positive: Prednisone has been discontinued. Patient on hydrocortisone and Florinef. Time Spent Managing Pts Care (In Minutes): 55
[2020-03-16] MEDS: NACHLORIDE 0.45% 1,000 ML IV SCH (13:57)
[2020-03-16] MEDS ORDERED: NACHLORIDE 0.45% 1,000 ML IV SCH (16:09)
[2020-03-16] MEDS: MELATONIN 3 MG TABLET PO SCH (19:36)
[2020-03-16 21:31] VITALS: O2SAT 90
[2020-03-16 22:37] VITALS: TEMP 99.9
[2020-03-16 22:41] VITALS: BP 139/76
--- NOTE | 2020-03-16 23:08 | P.DS ---
Admission Date: 02/27/20 Discharge Date: 03/16/20 Reason for Admission: N/V, diarrhea, SISI>general abdominal pain, anemia, hgb 8.9,Dehydration, UTI Consultations: Nephrology-Dr. Yeungo Gastroenterology- Dr. Wesley Procedures: CT head FINDINGS: No intracranial hemorrhage, mass, edema or shift of mid-line structures. No acute infarction changes seen. No abnormal extra-axial fluid collections. Mild atrophy changes are present with ventricles in proportion. Minimal chronic ischemic changes seen. Arterial and physiologic calcifications are present. Intracranial findings are similar to comparison. Mastoid air cells and visualized portions of the paranasal sinuses are clear. No acute bony findings. IMPRESSION: Negative non-contrast CT head examination for acute findings. No significant change from the [address] abdomen pelvis FINDINGS: Small left pleural effusion is noted with atelectasis in the left lung base. Cholecystectomy. No aggressive liver mass or biliary dilatation. The spleen, pancreas are unremarkable. Large bilateral adrenal masses are again seen. The left adrenal mass measures 4.9 cm, similar in size compared to 02/11/2020. Right adrenal mass measures 3.9 cm in transverse dimension, appearing mildly more prominent than on the comparative study. There is evidence of adenopathy in the retroperitoneal region, for example posterior to the right renal vein measuring 14 mm and left para-aortic location measuring 19 mm. It is somewhat difficult to discern the margins between the large adrenal masses in the soft tissue adenopathy. Both kidneys demonstrate abnormal enhancement pattern which may be related to mass-effect on both renal veins affecting venous drainage from both kidneys. No bowel obstruction, free air, free fluid or abscess. Prominent sigmoid diverticulosis is present without diverticulitis. The appendix is normal. Prominent lumbosacral degenerative changes. IMPRESSION: Large bilateral adrenal masses are again seen with mild retroperitoneal adenopathy. Etiology is likely neoplastic/metastatic. Localized mass effect on both renal veins is likely present resulting in the mottled enhancement pattern of both kidneys. Small left pleural effusion. KUB FINDINGS: Single view the abdomen shows nasogastric tube in place. Tip of the tube is in the proximal most stomach. Side hole of the tubing is still in the distal esophagus. Cardiac lead overlies the upper abdomen. Bowel gas pattern is nonspecific. No free air or pneumatosis. IMPRESSION: NG tube placement with the tip in the proximal most stomach and the side hole of the tubing in the distal esophagus. Chest x-ray FINDINGS: The lungs are well expanded. There is bibasilar volume loss greater on the left likely due to a combination of pleural fluid and atelectasis. There is no evidence of a pneumothorax. The cardiac silhouette appears mildly prominent but stable. The mediastinal contours are normal. No acute osseous abnormality is identified. No focal soft tissue abnormalities are seen. Lines and tubes: The feeding tube extends below the diaphragm. The tip is not definitely visualized on this examination. The right upper extremity PICC line catheter tip overlies the region of the cavoatrial junction. IMPRESSION: 1. The right upper extremity PICC line catheter tip overlies the region of the cavoatrial junction. 2. The feeding tube extends below the diaphragm. 3. Ongoing bibasilar volume loss greater on the left likely due to a combination of pleural fluid and atelectasis. CT chest FINDINGS: The lungs are mildly emphysematous. Tiny 4 mm nodule is present in the superior posterior aspect of the right upper lung. Small left pleural effusion is seen with atelectasis in the left lung base. No pneumothorax. No axillary, mediastinal or hilar adenopathy. No concerning bony finding. No lytic or blastic bone lesion. All CT scans are performed using dose optimization technique as appropriate and may include automated exposure control or mA/KV adjustment according to patient size. IMPRESSION: Small left pleural effusion. 4 mm nodule posterior right lobe. MRI abdomen FINDINGS: 9.1 centimeter bilateral adrenal masses. These are unchanged from the prior CAT scan. The masses have low to intermediate signal on T2 weighted sequences. The masses enhance. Out of phase gradient echo images do not demo nstrate drop off in signal. Celiac axis, portacaval and periaortic/caval lymphadenopathy is present. Kidneys demonstrate multiple, bilateral small enhancing lesions. IMPRESSION: Bilateral 9.1 centimeter adrenal masses. These do not have MRI characteristics of adenomas. These have developed since 2018. 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 Neoplasm is another consideration Abdominal ultrasound FINDINGS: Right kidney is 12.1 x 6.0 x 5.2 cm. Left kidney is 11.7 x 6.6 x 6.3 cm. Cortical thickness and echogenicity are normal. No hydronephrosis or suspicious mass. Doppler evaluation shows a normal renal artery velocity value and waveform pattern. Bilateral renal veins are identified and show patency. Velocity and waveform patterns of the renal veins within normal limits. Bilateral adrenal masses are present. Sonographic characteristics do not further define a specific etiology. IMPRESSION: Bilateral renal veins and renal arteries show no suspicious findings. No hydronephrosis or suspicious renal mass. MRCP FINDINGS: Exam has motion degradation limitations. Gallbladder is absent. No intrahepatic or extrahepatic biliary tree dilatation. No stricture, mass, stone or other intraluminal abnormality. Pancreatic duct is not well visualized. No dilatation is seen. Large bilateral adrenal masses are again noted. These are heterogeneous on T2 sequencing. Both kidneys show significant heterogeneity of the parenchyma on T2 sequencing. Pattern is nonspecific. Correlation is needed with any infectious or inflammatory history, symptoms or UA abnormalities. As noted on the CT study there could be some extrinsic compression of the renal vasculature by the large adrenal masses causing the mottled signal pattern. IMPRESSION: Normal post cholecystectomy MRCP. Large bilateral adrenal masses with bilateral significant renal parenchymal heterogeneous T2 signal pattern. As noted on the CT study, the renal signal pattern may be due to extrinsic compression of the renal vasculature. Correlation can be made with any infectious or inflammatory history, symptoms or UA abnormalities. Medical problem list Acute renal injury with tachycardia likely dehydration with severe protein malnutrition/hypoalbuminemia complicated with encephalopathy likely metabolic, failure to thrive,all likely may be related to COVID 19 condition versus possible cancer, left pleural effusion Large bilateral adrenal masses, left adrenal mass 4.9 cm, right adrenal mass 3.9 cm with noted retroperitoneal adenopathy suspect adrenal insufficiency Hyperbilirubinemia Hyponatremia and hypokalemia stable Acute on chronic anemia with thrombocytopenia likely related to above with noted B12 deficiency UTI COVID 19 Positive Brief History of Present Illness: 69-year-old female with history of hyperlipidemia, GERD presents emergency department for nausea, vomiting, diarrhea. Patient reports that she had a gallbladder taken out with Dr. Bowers approximately 2-3 weeks ago and since then has been having persistent nausea and vomiting. Patient reports that she has lost approximately 15 lb over the course of the last 2-3 weeks. Patient is not been able to tolerate any solid foods. During her evaluation in the emergency department patient was found to have acute kidney injury with creatinine of 1.5 over recent baseline of 0.9. Patient also had CT scan which showed large bilateral adrenal masses again seen. Left adrenal mass measures 4.9 cm which is similar in size but right adrenal mass measures 3.9 cm in transverse dimension appearing mildly more prominent than on the comparative s tudy. There is also evidence of adenopathy in the retroperitoneal area. Also noted both kidneys demonstrate abnormal enhancement patterns. Patient also found to have urinary tract infection during her evaluation. ED provider wishes to admit patient for further evaluation and management. When I saw the patient in the emergency department she was awake, alert, oriented x3. Patient reports that she is unaware of any adrenal masses. Patient does appear dehydrated with dry mucous membranes. Patient be admitted for further evaluation and management Hospital Course: Patient had a prolonged and complex hospitalization. Patient had extensive workup for bilateral adrenal masses, patient remained COVID positive. Patient was given multiple blood transfusion, albumin transfusions for anemia and hypoalbuminemia. Patient with severe failure to thrive, extreme weakness. Workup unable to discern if patient's adrenal masses were malignant in origin as she is never able to receive biopsy. Patient was scheduled for biopsy on multiple occasions but between her testing positive for COVID and worsening of condition she is on virtually never able to have this performed. Over the course of the last week patient had become very weak with hypoxia, failure to thrive, kidney injury, respiratory failure, hypotension. Patient was moved to the intensive care unit, case was discussed extensively with family throughout hospitalization. Patient was eventually made to be a do not resuscitate due to her poor prognosis and failure to thrive. This evening nursing staff called to inform you that patient was hypoxic at 45% on 100% FiO2 for high-flow nasal cannula. Patient was on Levophed throughout the day for hypotension but when she became hypoxic patient's blood pressure spiked to 200, Levophed was discontinued, patient remained hypertensive around 200 over 27-40. Patient was also bradycardic in the 40s. Family was called to come accompany her as appeared imminent at this time. Family wish for no aggressive resuscitation including defibrillation, CPR, intubation. Patient peacefully in the intensive care unit with her family at bedside. May she rest in peace. <Rashid Parnell - Last Filed: 03/16/20 23:08> Admission Date: 02/27/20 Discharge Date: 03/17/20 Hospital Course: Case reviewed in detail. See daily notes for details. Agree with assessment and review of [facility] [employer]. <Isael Graandos - Last Filed: 03/17/20 18:30> Disposition: Discharge Condition: Vital Signs/Physical Exam: Temp Pulse Resp BP Pulse Ox 99.9 F 103 H 28 H 139/76 45 L 03/16/20 21:49 03/16/20 22:30 03/16/20 22:30 03/16/20 22:30 03/16/20 22:30 General: Unresponsive HEENT: Other (Pupils dilated, nonreactive) Neck: Other Respiratory: Other (Absence of spontaneous respirations) Cardiovascular: Other (Absence of heart sounds) Other Physical/Emotional Findings: patient seen from [facility]. Expressing she is doing better. Laboratory Data at Discharge: WBC 3.0 K/uL (4.3-10.9) L 03/16/20 04:40 Hgb 8.2 g/dL (12.0-15.0) L 03/16/20 04:40 Hct 24.5 % (36.0-45.0) L 03/16/20 04:40 Plt Count 51 K/uL (152-406) L 03/16/20 04:40 PT 13.9 SECONDS (9.5-12.5) H 03/12/20 04:53 INR 1.18 03/12/20 04:53 APTT 28.8 SECONDS (24.3-36.9) 03/12/20 04:53 Sodium 140 mmol/L (136-145) 03/16/20 04:40 Potassium 4.1 mmol/L (3.5-5.1) 03/16/20 04:40 BUN 33 mg/dL (7-18) H 03/16/20 04:40 Creatinine 0.80 mg/dL (0.55-1.3) 03/16/20 04:40 Glucose 148 mg/dL (74-106) H 03/16/20 04:40 Phosphorus 2.6 mg/dL (2.5-4.9) 03/06/20 06:10 Magnesium 2.2 mg/dL (1.8-2.4) 03/16/20 04:40 Total Bilirubin 0.9 mg/dL (0.2-1.0) 03/10/20 05:17 AST 30 U/L (15-37) 03/10/20 05:17 ALT 12 U/L (12-78) 03/10/20 05:17 Alkaline Phosphatase 56 U/L (45-117) 03/10/20 05:17 Lipase 309 U/L (73-393) 02/26/20 17:00 <Rashid Parnell - Last Filed: 03/16/20 23:08> Vital Signs/Physical Exam: Temp Pulse Resp BP Pulse Ox 99.9 F 103 H 28 H 139/76 45 L 03/16/20 21:49 03/16/20 22:30 03/16/20 22:30 03/16/20 22:30 03/16/20 22:30 Laboratory Data at Discharge: WBC Cancelled 03/17/20 05:00 Hgb Cancelled 03/17/20 05:00 Hct Cancelled 03/17/20 05:00 Plt Count Cancelled 03/17/20 05:00 PT 13.9 SECONDS (9.5-12.5) H 03/12/20 04:53 INR 1.18 03/12/20 04:53 APTT 28.8 SECONDS (24.3-36.9) 03/12/20 04:53 Sodium Cancelled 03/17/20 05:00 Potassium Cancelled 03/17/20 05:00 BUN Cancelled 03/17/20 05:00 Creatinine Cancelled 03/17/20 05:00 Glucose Cancelled 03/17/20 05:00 Phosphorus 2.6 mg/dL (2.5-4.9) 03/06/20 06:10 Magnesium Cancelled 03/17/20 05:00 Total Bilirubin 0.9 mg/dL (0.2-1.0) 03/10/20 05:17 AST 30 U/L (15-37) 03/10/20 05:17 ALT 12 U/L (12-78) 03/10/20 05:17 Alkaline Phosphatase 56 U/L (45-117) 03/10/20 05:17 Lipase 309 U/L (73-393) 02/26/20 17:00 <Isael Granados - Last Filed: 03/17/20 18:30> Patient Discharge Instructions: May she rest in peace Time spent managing pt's care (in minutes): 55 <Rashid Parnell - Last Filed: 03/16/20 23:08> <Isael Granados - Last Filed: 03/17/20 18:30> Home Medications: NK [No Home Meds] 02/26/20
== END 2020-03-17 00:12 | disposition expired | DRG 177 ==
LOC: ER 16:09 → INTOOBSV 21:09 → OBSVTOIN 21:09 → 2ND 21:09 → OBSVTOIN 02-27 18:28 → 3RD-ICU 03-03 22:18 → 4TH 03-05 17:27 → 3RD-ICU 03-07 20:13
PROVIDERS: ADMIT Family Medicine; ATTEND Family Medicine
PROC: 0DB78ZX Excision of Stomach, Pylorus, Via Natural or Artificial Opening Endoscopic, Diagnostic (ICD-10-PCS; principal; 2020-02-29 14:00)
PROC: 30233N1 Transfusion of Nonautologous Red Blood Cells into Peripheral Vein, Percutaneous Approach (ICD-10-PCS; 2020-03-05)
PROC: 02HV33Z Insertion of Infusion Device into Superior Vena Cava, Percutaneous Approach (ICD-10-PCS; 2020-03-14)
DX: U07.1 COVID-19 (principal); E43 Unspecified severe protein-calorie malnutrition; G93.41 Metabolic encephalopathy; N17.9 Acute kidney failure, unspecified; E87.1 Hypo-osmolality and hyponatremia; E87.2 Acidosis; N39.0 Urinary tract infection, site not specified; D61.818 Other pancytopenia; E27.40 Unspecified adrenocortical insufficiency; K91.5 Postcholecystectomy syndrome; E78.5 Hyperlipidemia, unspecified; E27.9 Disorder of adrenal gland, unspecified; K21.9 Gastro-esophageal reflux disease without esophagitis; E86.1 Hypovolemia; E86.0 Dehydration; Z86.73 Personal history of transient ischemic attack (TIA), and cerebral infarction without residual deficits; Z87.891 Personal history of nicotine dependence; Z88.5 Allergy status to narcotic agent; Z68.21 Body mass index [BMI] 21.0-21.9, adult; E87.6 Hypokalemia; E83.51 Hypocalcemia; D63.8 Anemia in other chronic diseases classified elsewhere; K44.9 Diaphragmatic hernia without obstruction or gangrene; K29.70 Gastritis, unspecified, without bleeding; N18.3 Chronic kidney disease, stage 3 (moderate); R59.9 Enlarged lymph nodes, unspecified; D51.9 Vitamin B12 deficiency anemia, unspecified; K29.00 Acute gastritis without bleeding; E87.70 Fluid overload, unspecified; R00.0 Tachycardia, unspecified; D50.0 Iron deficiency anemia secondary to blood loss (chronic); R59.1 Generalized enlarged lymph nodes; R31.9 Hematuria, unspecified; Z66 Do not resuscitate; R62.7 Adult failure to thrive
CPT/HCPCS: 36415; 36569; 70450; 71045; 71250; 74018; 74177; 74181; 74183; 80048; 80053; 80074; 80076; 81003; 81015; 82024; 82088; 82384; 82530; 82533; 82565; 82607; 82627; 82670; 82728; 82805; 83540; 83605; 83690; 83735; 83835; 83880; 84100; 84132; 84145; 84165; 84244; 84402; 84403; 84439; 84443; 84466; 84481; 84585; 85014; 85018; 85025; 85044; 85610; 85730; 86140; 86850; 86900; 86901; 87040; 87086; 87088; 87205; 87389; 87804; 88305; 88312; 93306; 93975; 94002; 94003; 96361; 96374; 96375; 97110; 97112; 97116; 97161; 97530; 99285; A9577; C9113; J0696; J1650; J1720; J1940; J2405; J2550; J2704; J3475; J3480; J7030; J7040; J7042; J7050; J7060; J7120; J7512; J7799; P9016; P9045; P9047; Q9967; U0002; U0003